=== PATIENT | male | born 1950 | race Caucasian/White ===

== ENCOUNTER 2021-06-02 08:25 | Outpatient (REF) | payer MEDICARE, SELFPAY ==
[2021-06-02 08:45] LABS: MANUAL DIFF FLAG NO
[2021-06-02 08:51] LABS: Basophils Percent Auto 0.5 % (0-2); Eosinophils Absolute Auto 0.1 X10*3/uL (0.0-0.4); Eosinophils Percent Auto 2.5 % (0-4); Hematocrit 47.1 % (42.0-52.0); Hemoglobin 15.3 g/dl (14.0-18.0); Imm Gran Abs Auto 0.01 X10*3/uL (0.00-0.03); Imm Gran Pct Auto 0.2 % (0.0-0.4); Lymphocytes Absolute Auto 1.7 X10*3/uL (1.2-4.9); Lymphocytes Percent Auto 41.6 % (20-40); Mean Corpuscular HGB Conc 32.5 g/dl (31.0-36.0); Mean Corpuscular Hemoglobin 29.6 pg (27.0-33.0); Mean Corpuscular Volume 91.1 fL (80.0-98.0); Mean Platelet Volume 10.1 fL (9.4-12.4); Monocytes Absolute Auto 0.3 X10*3/uL (0.1-1.2); Monocytes Percent Auto 8.1 % (2-11); Neutrophils Absolute Auto 1.9 x10*3/uL (2.0-8.3); Neutrophils Percent Auto 47.1 % (45-73); Platelet Count 199 X10*3/uL (160-400); Red Blood Count 5.17 X10*6/uL (4.60-5.80); White Blood Count 4.1 X10*3/uL (4.8-10.8)
[2021-06-02 09:19] LABS: Alanine Aminotransferase 24 U/L (0-40); Alkaline Phosphatase 85 U/L (39-117); Anion Gap 11 (12-20); Aspartate Amino Transferase 30 U/L (5-37); Bilirubin Total 0.4 mg/dL (0.0-1.0); Blood Urea Nitrogen 15 mg/dL (9-16); Calcium 9.2 mg/dL (8.4-10.2); Carbon Dioxide 26 mmol/L (22-29); Chloride 106 mmol/L (96-108); Cholesterol 219 mg/dL; Estimated Glomerular Filt Rate > 60; Glucose Fasting 103 mg/dL (60-99); HDL Cholesterol 57 mg/dL; LDL Cholesterol Calculated 149 mg/dl; Potassium 4.3 mmol/L (3.3-5.1); Sodium 139 mmol/L (135-145); Total Protein 6.1 g/dL (6.5-8.0); Triglycerides 69 mg/dL
[2021-06-02 09:33] LABS: Appearance Urine CLEAR; Color Urine YELLOW; Glucose Urine UA NEG (NEG); Leukocyte Esterase Urine NEG (NEG); Nitrite Urine NEG (NEG); Specific Gravity - Urine 1.015 (1.005-1.025); Urine Blood NEG (NEG); Urine Ketones NEG (NEG); Urine Protein NEG (NEG-TRACE)
[2021-06-02 09:41] LABS: Prostate Specific Antigen 2.27 ng/mL (<0.05-4.0); TSH reflex Free T4 1.59 uIU/mL (0.32-4.0); Vitamin D 25-OH Total 56.1 ng/mL (>30)
== END 2021-06-02 08:26 | disposition home or self-care (01) ==
LOC: HO.LAB 08:25
PROVIDERS: PCP Internal Medicine; Visit Provider Internal Medicine
DX: Z00.00 Encounter for general adult medical examination without abnormal findings (principal); Z12.5 Encounter for screening for malignant neoplasm of prostate; N40.0 Benign prostatic hyperplasia without lower urinary tract symptoms; E78.00 Pure hypercholesterolemia, unspecified; I10 Essential (primary) hypertension; E55.9 Vitamin D deficiency, unspecified
CPT/HCPCS: 36415; 80053; 80061; 81003; 82306; 84153; 84443; 85025

== ENCOUNTER 2022-01-01 10:26 | Outpatient (REF) | payer MEDICARE, SELFPAY ==
--- NOTE | ~2022-01-01 | XR_ITS ---
EXAMINATION: XR SHOULDER, RIGHT CLINICAL INFORMATION: Pain. COMPARISON: Radiographs dated 01/06/2015. TECHNIQUE: AP external rotation, Grashey, scapular Y, and axillary views of the right shoulder. FINDINGS: Bony alignment is normal. There is mild bony demineralization. The glenohumeral joint is intact. The acromioclavicular and coracoclavicular intervals are normal. There is mild osteoarthritic change of the acromioclavicular joint. No fracture or dislocation is seen. There is a loose body suspected in the anterior joint space, new from prior. No foreign body is seen. There is no right pneumothorax. XR/XR shoulder RT min 2V IMPRESSION: 1. No fracture or dislocation is seen. 2. There is mild osteoarthritic change of the right acromioclavicular joint. 3. A small loose body suspected in the anterior joint space.
[2022-01-01 10:57] LABS: MANUAL DIFF FLAG NO
[2022-01-01 11:28] LABS: Basophils Percent Auto 0.4 % (0-2); Eosinophils Absolute Auto 0.1 X10*3/uL (0.0-0.4); Eosinophils Percent Auto 1.5 % (0-4); Hematocrit 47.8 % (42.0-52.0); Hemoglobin 15.6 g/dl (14.0-18.0); Imm Gran Abs Auto 0.02 X10*3/uL (0.00-0.03); Imm Gran Pct Auto 0.4 % (0.0-0.4); Lymphocytes Absolute Auto 1.6 X10*3/uL (1.2-4.9); Lymphocytes Percent Auto 34.7 % (20-40); Mean Corpuscular HGB Conc 32.6 g/dl (31.0-36.0); Mean Corpuscular Hemoglobin 29.7 pg (27.0-33.0); Mean Platelet Volume 10.4 fL (9.4-12.4); Monocytes Absolute Auto 0.4 X10*3/uL (0.1-1.2); Monocytes Percent Auto 9.1 % (2-11); Neutrophils Absolute Auto 2.5 x10*3/uL (2.0-8.3); Neutrophils Percent Auto 53.9 % (45-73); Platelet Count 224 X10*3/uL (160-400); Red Blood Count 5.25 X10*6/uL (4.60-5.80); Red Cell Distribution Width 12.3 % (11.0-16.0); White Blood Count 4.7 X10*3/uL (4.8-10.8)
[2022-01-01 12:00] LABS: Alanine Aminotransferase 22 U/L (0-40); Albumin Level 4.4 g/dL (3.5-5.0); Alkaline Phosphatase 90 U/L (39-117); Anion Gap 13 (12-20); Aspartate Amino Transferase 24 U/L (5-37); Bilirubin Total 0.2 mg/dL (0.0-1.0); Blood Urea Nitrogen 27 mg/dL (9-16); Calcium 9.6 mg/dL (8.4-10.2); Carbon Dioxide 28 mmol/L (22-29); Chloride 104 mmol/L (96-108); Cholesterol 219 mg/dL; Estimated Glomerular Filt Rate > 60; Glucose Fasting 83 mg/dL (60-99); HDL Cholesterol 60 mg/dL; LDL Cholesterol Calculated 145 mg/dl; Potassium 4.5 mmol/L (3.3-5.1); Sodium 140 mmol/L (135-145); Total Protein 6.5 g/dL (6.5-8.0); Triglycerides 74 mg/dL
[2022-01-01 12:04] LABS: Appearance Urine Clear; Color Urine Yellow; Glucose Urine UA Negative (Negative); Leukocyte Esterase Urine Negative (Negative); Nitrite Urine Negative (Negative); Specific Gravity - Urine >= 1.030 (1.005-1.025); Urine Blood Negative (Negative); Urine Ketones Trace mg/dL (Negative); Urine Protein Trace mg/dL (Neg-Trace)
[2022-01-01 12:11] LABS: Prostate Specific Antigen 2.61 ng/mL (<0.05-4.0); TSH reflex Free T4 0.92 uIU/mL (0.32-4.0)
== END 2022-01-01 10:27 | disposition home or self-care (01) ==
LOC: HO.LAB 10:26
PROVIDERS: PCP Internal Medicine; Visit Provider Internal Medicine
DX: Z00.00 Encounter for general adult medical examination without abnormal findings (principal); Z12.5 Encounter for screening for malignant neoplasm of prostate; I10 Essential (primary) hypertension; E78.00 Pure hypercholesterolemia, unspecified; E55.9 Vitamin D deficiency, unspecified; N40.0 Benign prostatic hyperplasia without lower urinary tract symptoms; M25.511 Pain in right shoulder
CPT/HCPCS: 36415; 73030; 80053; 80061; 81003; 82306; 84153; 84443; 85025

== ENCOUNTER 2022-01-14 10:11 | Outpatient (REF) | payer MEDICARE, SELFPAY ==
--- NOTE | ~2022-01-14 | XR_ITS ---
EXAMINATION: XR KNEE, RIGHT XR KNEE, LEFT CLINICAL INFORMATION: Bilateral knee pain. COMPARISON: Standing AP knees and right knee 01/13/2018, left knee 07/31/2015. TECHNIQUE: Each knee is imaged in 3 views including AP projections with weightbearing. There are total of 6 views, 3 on each side. FINDINGS: Right: Normal bony mineralization. No fracture, dislocation, destructive process. There is small suprapatellar effusion. Hoffa's fat pad appears normal. There is no joint narrowing or erosive change or chondrocalcinosis. No lateralization or tilting patella. Left: Normal bony mineralization. No fracture, dislocation, or destructive process. There is borderline thickening suprapatellar bursa which may represent a trace amount of fluid. Hoffa's fat pad appears normal. Again, there is a corticated ossicle at the proximal anterior tibial tubercle. The deep infrapatellar recess is preserved. No joint narrowing or erosive change or chondrocalcinosis. No lateralization or tilting patella. XR/XR knee RT 3V IMPRESSION: Right: -Small suprapatellar effusion. -No joint narrowing, erosion, or chondrocalcinosis. Left: -Borderline thickening suprapatellar bursa, trace amount of fluid. -No joint narrowing, erosion, or chondrocalcinosis.
--- NOTE | ~2022-01-14 | XR_ITS ---
EXAMINATION: XR KNEE, RIGHT XR KNEE, LEFT CLINICAL INFORMATION: Bilateral knee pain. COMPARISON: Standing AP knees and right knee 01/13/2018, left knee 07/31/2015. TECHNIQUE: Each knee is imaged in 3 views including AP projections with weightbearing. There are total of 6 views, 3 on each side. FINDINGS: Right: Normal bony mineralization. No fracture, dislocation, destructive process. There is small suprapatellar effusion. Hoffa's fat pad appears normal. There is no joint narrowing or erosive change or chondrocalcinosis. No lateralization or tilting patella. Left: Normal bony mineralization. No fracture, dislocation, or destructive process. There is borderline thickening suprapatellar bursa which may represent a trace amount of fluid. Hoffa's fat pad appears normal. Again, there is a corticated ossicle at the proximal anterior tibial tubercle. The deep infrapatellar recess is preserved. No joint narrowing or erosive change or chondrocalcinosis. No lateralization or tilting patella. XR/XR knee LT 3V IMPRESSION: Right: -Small suprapatellar effusion. -No joint narrowing, erosion, or chondrocalcinosis. Left: -Borderline thickening suprapatellar bursa, trace amount of fluid. -No joint narrowing, erosion, or chondrocalcinosis.
== END 2022-01-14 10:12 | disposition home or self-care (01) ==
LOC: HO.XRAY 10:11
PROVIDERS: PCP Internal Medicine; Visit Provider Nurse Practitioner Family
DX: M25.561 Pain in right knee (principal); M25.562 Pain in left knee
CPT/HCPCS: 73562; 99202

== ENCOUNTER → 2022-02-02 09:43 | Outpatient (BNVA) | payer MEDICARE, SELFPAY | PROVIDERS: PCP Internal Medicine; Visit Provider Physician Assistant | DX: M75.101 Unspecified rotator cuff tear or rupture of right shoulder, not specified as traumatic (principal); M12.811 Other specific arthropathies, not elsewhere classified, right shoulder | CPT/HCPCS: 99202 ==

== ENCOUNTER 2022-02-24 07:56 | Outpatient (REF) | payer MEDICARE, SELFPAY ==
--- NOTE | ~2022-02-24 | MR_ITS ---
EXAMINATION: MR SHOULDER WITHOUT CONTRAST, RIGHT CLINICAL INFORMATION: Right shoulder pain COMPARISON: Radiographs 01/01/2022 TECHNIQUE: MRI of the shoulder without contrast was performed on a high-field scanner. FINDINGS: ROTATOR CUFF: The subscapularis tendon is completely torn and retracted. Supraspinatus tendinosis with ill-defined partial tearing posteriorly. The infraspinatus and teres minor tendons appear intact. Moderate-severe subscapularis and mild supraspinatus muscle atrophy. BICEPS: The biceps tendon is completely torn and retracted. CORACOACROMIAL ARCH: The undersurface of the acromion is curved with no subacromial spur. Moderate acromioclavicular osteoarthritis. LABRUM/CAPSULE: The posterior labrum is degenerated and attenuated, essentially absent at the superior aspect. The superior labrum is blunted. GLENOHUMERAL JOINT/MARROW: There is a 2.5 cm cyst with interspersed and peripheral fat at the lateral aspect of the humeral head which is likely chronic and degenerative. Small marginal osteophytes of the humeral head and neck junction and glenoid rim. Partial-thickness cartilage loss of the inferomedial humeral head. Small joint effusion with mild synovitis. MR/MR shoulder RT wo con IMPRESSION: 1. Completely torn and retracted subscapularis tendon with moderate-severe muscle atrophy. 2. Supraspinatus tendinosis with ill-defined partial tearing posteriorly. Mild supraspinatus muscle atrophy. 3. Completely torn and retracted biceps tendon. 4. Moderate acromioclavicular and glenohumeral osteoarthritis.
== END 2022-02-24 07:57 | disposition home or self-care (01) ==
LOC: HO.MRI 07:56
PROVIDERS: Visit Provider Physician Assistant
DX: M12.811 Other specific arthropathies, not elsewhere classified, right shoulder (principal); M75.101 Unspecified rotator cuff tear or rupture of right shoulder, not specified as traumatic
CPT/HCPCS: 73221

== ENCOUNTER → 2022-03-02 09:16 | Outpatient (BNVA) | payer MEDICARE, SELFPAY | PROVIDERS: PCP Internal Medicine; Visit Provider Physician Assistant | DX: M75.101 Unspecified rotator cuff tear or rupture of right shoulder, not specified as traumatic (principal); M12.811 Other specific arthropathies, not elsewhere classified, right shoulder | CPT/HCPCS: 99212 ==

== ENCOUNTER → 2022-03-11 12:10 | Outpatient (BNVA) | payer MEDICARE, SELFPAY | PROVIDERS: PCP Internal Medicine; Visit Provider Orthopaedic Surgery | DX: M75.101 Unspecified rotator cuff tear or rupture of right shoulder, not specified as traumatic (principal); M12.811 Other specific arthropathies, not elsewhere classified, right shoulder; M25.511 Pain in right shoulder | CPT/HCPCS: 20610; 99212; J1100 ==

== ENCOUNTER → 2022-06-04 09:48 | Outpatient (BNVA) | payer MEDICARE, SELFPAY | PROVIDERS: PCP Internal Medicine; Visit Provider Orthopaedic Surgery | DX: M75.101 Unspecified rotator cuff tear or rupture of right shoulder, not specified as traumatic (principal); M12.811 Other specific arthropathies, not elsewhere classified, right shoulder | CPT/HCPCS: 99212 ==

== ENCOUNTER 2022-06-16 09:00 | Outpatient (RCR) | payer MEDICARE, SELFPAY ==
--- NOTE | 2022-04-21 12:48 | MHC.PT.EP ---
[facility] [place] Office [place] Office [place] Office [address] Gordon Foley [address] [phone] F: [phone] F: [phone] F: [phone] F: [phone] Physical Therapy Plan of Care Date of Evaluation: Date of Surgery: Diagnosis: RTC tears (per MRI full tear subscapularis, partial tear supraspinatus, full tear biceps, mod ACJ OA) Assessment: Patient is a 71 y.o. male who is referred to PT by Dr. Aston Black MD with Dx of RTC tears. Per MRI results: full tear subscapularis, partial tear supraspinatus, full tear proximal biceps, mod ACJ OA. Patient impairments include pain, limited ROM, weakness. Patient's current functional limitations are reaching overhead, lifting anything with arm, unable to sleep on R side, outstretched arm, reaching behind to back pocket, comb hair, and brush teeth. Patient will benefit from skilled PT to address aforementioned impairments and functional limitations to meet established goals. Frequency and Duration: The patient will be seen 1-2x/week for 4 weeks Short Term Goals: 2 weeks Patient demonstrates consistency and independence with HEP to self manage symptoms. Patient presents with increased R shoulder AROM 120 degrees to reach to top of head to wash hair. Intermediate Goals: 4 weeks Patient presents with increased R shoulder AROM IR 50 degrees to reach into back pocket. Patient presents with increased R shoulder flexion 4-/5 to be able to hold/lift plate to cabinet. Treatment Plan: Modalities to reduce pain, spasms and effusion. Manual therapy to restore motion and function. Therapeutic exercise to improve strength and flexibility. Neuromuscular re-education for posture and balance. Therapeutic activities to return to functional activities of daily living. Electronically signed by: Keisha Cardenas, PT, DPT Please sign and return to therapist. Thank you for your referral.
--- NOTE | 2022-06-16 10:45 | MHC.PT.DC ---
[facility] [place] Office [place] Office [place] Office [address] Gordon Foley [address] [facility] [phone] F: [phone] F: [phone] F: [phone] F: [phone] Physical Therapy Discharge Report Diagnosis: RTC tears (per MRI full tear subscapularis, partial tear supraspinatus, full tear biceps, mod ACJ OA) Date of Surgery: Date of Evaluation: 04/21/22 Date of Discharge: 06/16/22 Treatments to Date: 8 Cancellations to Date: No Shows to Date: Discharge Status: Achieved Goals Independent with HEP Discharge Summary: He demonstrates significant improvement in pain reduction, improved AROM and shoulder strength which positively correlated to improved functional ability with ADLs. He is ready for discharge this date, a new HEP is given to him for [facility] symptom management. Electronically signed by: Keisha Cardenas PT, DPT Please sign and return to therapist. Thank you for your referral.
== END 2022-11-25 07:53 | disposition home or self-care (01) ==
LOC: HO.PT 09:00
PROVIDERS: PCP Internal Medicine; Visit Provider Orthopaedic Surgery
DX: M12.811 Other specific arthropathies, not elsewhere classified, right shoulder (principal); M75.101 Unspecified rotator cuff tear or rupture of right shoulder, not specified as traumatic
CPT/HCPCS: 97110; 97162

== ENCOUNTER 2022-08-02 15:56 | Outpatient (REF) | payer MEDICARE, SELFPAY ==
[2022-08-04 14:09] LABS: Lyme Blot 5.32 index
[2022-08-05 09:54] LABS: Lyme Abs Screen POSITIVE
[2022-08-06 15:14] LABS: 18 KD (IgG) Band REACTIVE; 23 KD (IgG) Band NON-REACTIVE; 23 KD (IgM) Band NON-REACTIVE; 28 KD (IgG) Band NON-REACTIVE; 30 KD (IgG) Band REACTIVE; 39 KD (IgM) Band NON-REACTIVE; 39KD (IgG) Band REACTIVE; 41 KD (IgM) Band NON-REACTIVE; 41KD (IgG) Band REACTIVE; 45 KD (IgG) Band REACTIVE; 58 KD (IgG) Band REACTIVE; 66 KD (IgG) Band NON-REACTIVE; 93 KD (IgG) Band REACTIVE; Lyme IgG Blot Interp POSITIVE (NEGATIVE); Lyme IgM Blot Interp NEGATIVE (NEGATIVE)
== END 2022-08-02 15:57 | disposition home or self-care (01) ==
LOC: HO.LAB 15:56
PROVIDERS: Nurse Practitioner Family; PCP Internal Medicine; Visit Provider Internal Medicine
DX: M25.461 Effusion, right knee (principal)
CPT/HCPCS: 36415; 86617; 86618

== ENCOUNTER 2022-08-03 08:40 | Outpatient (REF) | payer MEDICARE, SELFPAY ==
[2022-08-03 12:33] LABS: MN% 75.9 %; PMN% 24.1 %; WBC Synovial Fluid 0.437 X10*3/uL
[2022-08-03 12:35] LABS: RBC Synovial Fluid < 0.002 X10*6/uL
[2022-08-03 14:24] LABS: Lymphocytes Synovial Fluid 21 %; Neutrophils Synovial Fluid 14 %; Source Synovial Fluid RIGHT KNEE
[2022-08-03 14:25] LABS: BF Shift QC OK YES; Man Diluent Bkgrd OK YES; Monocytes Synovial Fluid 6 %; Other Cells Synovial Fluid 59
[2022-08-06 00:23] LABS: Lyme PCR Source NOT GIVEN; Lyme Synovial Fluid PCR NOT DETECTED (NOT DETECTED)
== END 2022-08-03 08:41 | disposition home or self-care (01) ==
LOC: HO.LAB 08:40
PROVIDERS: PCP Internal Medicine; Visit Provider Nurse Practitioner Family
DX: M25.461 Effusion, right knee (principal); M25.561 Pain in right knee
CPT/HCPCS: 20610; 36415; 87070; 87073; 87205; 87476; 89051; 89060; 99212

== ENCOUNTER 2022-12-16 08:43 | Outpatient (REF) | payer MEDICARE, SELFPAY ==
[2022-12-16 08:55] LABS: MANUAL DIFF FLAG NO
[2022-12-16 09:44] LABS: Basophils Percent Auto 0.4 % (0-2); Eosinophils Absolute Auto 0.1 X10*3/uL (0.0-0.4); Eosinophils Percent Auto 2.7 % (0-4); Hemoglobin 15.5 g/dl (14.0-18.0); Imm Gran Abs Auto 0.01 X10*3/uL (0.00-0.03); Imm Gran Pct Auto 0.2 % (0.0-0.4); Lymphocytes Absolute Auto 1.7 X10*3/uL (1.2-4.9); Lymphocytes Percent Auto 35.7 % (20-40); Mean Corpuscular Hemoglobin 29.6 pg (27.0-33.0); Mean Corpuscular Volume 89.9 fL (80.0-98.0); Mean Platelet Volume 10.3 fL (9.4-12.4); Monocytes Absolute Auto 0.4 X10*3/uL (0.1-1.2); Neutrophils Absolute Auto 2.5 x10*3/uL (2.0-8.3); Platelet Count 213 X10*3/uL (160-400); Red Blood Count 5.23 X10*6/uL (4.60-5.80); Red Cell Distribution Width 12.3 % (11.0-16.0); White Blood Count 4.7 X10*3/uL (4.8-10.8)
[2022-12-16 10:31] LABS: Alanine Aminotransferase 20 U/L (0-40); Albumin Level 4.1 g/dL (3.5-5.0); Alkaline Phosphatase 91 U/L (39-117); Anion Gap 11 (12-20); Aspartate Amino Transferase 23 U/L (5-37); Bilirubin Total 0.6 mg/dL (0.0-1.0); Blood Urea Nitrogen 21 mg/dL (9-16); Calcium 9.4 mg/dL (8.4-10.2); Carbon Dioxide 28 mmol/L (22-29); Chloride 107 mmol/L (96-108); Cholesterol 231 mg/dL (<200); Estimated Glomerular Filt Rate > 60; Glucose Fasting 98 mg/dL (60-99); HDL Cholesterol 59 mg/dL (>40); LDL Cholesterol Calculated 151 mg/dL (<100); Potassium 4.4 mmol/L (3.3-5.1); Sodium 142 mmol/L (135-145); Total Protein 6.4 g/dL (6.5-8.0); Triglycerides 106 mg/dL (<150)
[2022-12-16 10:41] LABS: Appearance Urine Clear; Color Urine Yellow; Glucose Urine UA Negative (Negative); Leukocyte Esterase Urine Negative (Negative); Nitrite Urine Negative (Negative); Urine Blood Negative (Negative); Urine Ketones Negative (Negative); Urine Protein Negative (Neg-Trace)
[2022-12-16 10:44] LABS: Prostate Specific Antigen 2.33 ng/mL (<0.05-4.0)
[2022-12-16 10:51] LABS: Vitamin D 25-OH Total 53.5 ng/mL (>30)
== END 2022-12-16 08:44 | disposition home or self-care (01) ==
LOC: HO.LAB 08:43
PROVIDERS: PCP Internal Medicine; Visit Provider Internal Medicine
DX: Z00.00 Encounter for general adult medical examination without abnormal findings (principal); Z12.5 Encounter for screening for malignant neoplasm of prostate; R30.0 Dysuria; N40.0 Benign prostatic hyperplasia without lower urinary tract symptoms; E78.00 Pure hypercholesterolemia, unspecified; E55.9 Vitamin D deficiency, unspecified
CPT/HCPCS: 36415; 80053; 80061; 81003; 82306; 84153; 84443; 85025

== ENCOUNTER 2023-01-04 08:38 | Outpatient (AMB) | payer MEDICARE, SELFPAY ==
[2023-01-04 08:44] VITALS: BP 142/78; PULSE 55; O2SAT 98; BMI 22.1
--- NOTE | 2023-01-04 08:44 | MHC.PC.OV ---
Vital Signs 01/04/23 08:44 Height 5 ft 10 in Weight 154 lb 4 oz BMI 22.1 BP 142/78 H Blood Pressure Location Lt brachial Position Sitting Pulse 55 Pulse Source Pulse Oximeter Pulse Oximetry (%) 98 Oxygen Delivery Method Room Air Intake Visit Reasons: Annual Exam [employer] Fis[employer] Technician Required: No Accompanied by: Self / Same As Patient Allergies No Known Allergies Allergy (Verified 01/04/23 09:40) Medication List - Last Reconciled 01/04/23 by Brian Tay MD albuterol sulfate 90 mcg/actuation 2 puffs PO Q6H PRN aspirin 81 mg PO DAILY finasteride 5 mg PO DAILY 90 days [id number] serr 1,500-400-100 mg-unit-mg (Osteo Bi-Flex (5-Loxin)) 1 tab PO DAILY meloxicam 15 mg PO DAILY zolpidem 10 mg PO BEDTIME PRN 90 days Tobacco use date assessed: 01/04/23 Fall risk assessment: No Falls in past year Last assessed Fall Risk: 01/04/23 Dental Screening Dental Screen Date: 01/04/23 Did you have a dental visit in the last 12 months?: Yes Did you have a dental problem in the last 6 months where you did not have access to dental care?: No Was dental information given to patient?: Patient has dentist HPI Annual Exam HPI Details Patient comes in today for his annual physical examination States that he feels okay He denies any headaches or dizziness Denies any chest pains, no SOB No nausea/vomiting, no abdominal pain No change in bowel habits noted Denies any acute urinary symptoms Still has on and off knee pains but states that these are mostly manageable Had his follow up labs done a few weeks ago - to discuss his results [facility] Medical History Insomnia Lyme arthritis of knee Elevated blood pressure reading Pure hypercholesterolemia Leukopenia Hypermobility arthralgia Benign prostatic hyperplasia without lower urinary tract symptoms Surgical History (Updated 01/04/23 @ 09:54 by Brian Tay MD) Hx of colonoscopy (~05/2013) Family History Mother No problems noted. Father No problems noted. Social History Housing: House Alcohol intake: current Alcohol intake frequency: a few times a week Patient Tobacco Use Status: Former Tobacco user Quit Date: 1984 e-Cigarette/Vaping Use: Never Used Second Hand Smoke Exposure: Yes service: No Current occupational status: retired Cognitive needs: No Hearing needs: No Vision needs: Yes Questionnaire PHQ-9 Over the last 2 weeks, how often have you been bothered by any of the following problems? 1. Little interest or pleasure in doing things: not at all 2. Feeling down, depressed, or hopeless: not at all 3. Trouble falling or staying asleep, or sleeping too much: not at all 4. Feeling tired or having little energy: not at all 5. Poor appetite or overeating: not at all 6. Feeling bad about yourself - or that you are a failure or have let yourself or your family down: not at all 7. Trouble concentrating on things, such as reading the newspaper or watching television: not at all 8. Moving or speaking so slowly that other people could have noticed. Or the opposite - being so fidgety or restless that you have been moving around a lot more than usual: not at all 9. Thoughts that you would be better off or of hurting yourself in some way: not at all Total score: 0 Depression Screening Interpretation: Negative [id number] - PHQ-9 Billing: Yes Source: Developed by Drs. Gurvinder Dubois, Yulia Rollins, Tate Garcia and colleagues, with an educational justino from [employer]. Thrive Questionnaire Date Thrive assessed: 01/04/23 I am a: Patient What is your living situation today?: I have a steady place to live Within the past 12 months, did the food you bought not last and you didn't have the money to get more?: Never true Within the past 12 months, did you worry whether your food would run out before you got money to buy more?: Never true Do you have trouble paying for medicines?: No Do you have trouble getting transportation to medical appointments?: No Do you have trouble paying your heating and electricity bill?: No Do you have trouble taking care of your child, family member or friend?: No Do you have trouble with day-to-day activities such as bathing, preparing meals, shopping, managing finances, etc.?: No Are you currently unemployed and looking for a job?: No Are you interested in more education?: No Please select the resources that you would like help with: None Currently or been in a relationship where the following occur: no concerns reported AUDIT C Alcohol Use Questionnaire (AUDIT-C) 1. How often do you have a drink containing alcohol?: Never 3. How often do you have six or more drinks on one occasion?: Never Total Score: 0 Score Reviewed/Action Taken: Yes EMILIANO-7 AMB Questionnaire EMILIANO-7 Date EMILIANO - 7 assessed: 01/04/23 Feeling nervous, anxious, or on edge: 0 = Not at all Not being able to stop or control worryin = Not at all Worrying too much about different things: 0 = Not at all Trouble relaxin = Not at all Being so restless that it is hard to sit still: 0 = Not at all Becoming easily annoyed or irritable: 0 = Not at all Feeling afraid as if something awful might happen: 0 = Not at all Total EMILIANO-7 score (0-4 normal; 5-9 mild; 10-14 moderate; 15-21 severe): 0 Source: Developed by Drs. Gurvinder Dubois, Yulia Rollins, Tate Garcia and colleagues, with an educational justino from [employer]. Review of Systems Const Denies chills, Reports difficulty sleeping (Zolpidem helps), Denies fatigue, Denies fever(s), Denies headache(s), Denies malaise and Denies weakness Eyes Denies blurry vision, Denies change in vision, Denies irritation and Denies itchy eyes ENT Denies dysphagia, Denies dizziness, Denies otalgia, Denies headache(s), Denies nasal congestion, Denies neck pain, Denies odynophagia and Denies sore throat Card Denies chest pain, Denies rapid heart rate, Denies irregular heart rhythm, Denies palpitations and Denies dyspnea Resp Denies chest congestion, Denies cough, Denies dyspnea and Denies wheezing GI Denies abdominal pain, Denies bloating, Denies constipation, Denies dysphagia, Denies heartburn, Denies diarrhea, Denies nausea, Denies odynophagia and Denies vomiting Denies hematuria, Denies difficulty urinating, Denies dysuria, Denies urinary frequency and Denies urinary urgency Musc Denies back pain, Reports arthralgias (on and off, in both knees), Denies joint swelling, Denies muscle weakness and Denies neck pain Skin/Breast Denies change in pigmentation, Denies lesions, Denies rash and Denies unusual bruising Neuro Denies dizziness, Denies headache(s), Denies paresthesias and Denies weakness Endo Denies fatigue and Denies palpitations Aller/Immun Denies itchy eyes and Denies wheezing Physical exam (Primary Care) Vital Signs: Last Vital Signs Pulse 55 01/04/23 08:44 BP 142/78 H 01/04/23 08:44 Pulse Ox 98 01/04/23 08:44 Oxygen Delivery Method Room Air 01/04/23 08:44 BMI result Body Mass Index 22.1 Tobacco/Smoking Status: Tobacco use Status Tobacco use date assessed 01/04/23 01/04/23 08:49 Patient Tobacco Use Status Former Tobacco user 01/04/23 08:49 e-Cigarette/Vaping Use Never Used 01/04/23 08:49 PHQ-9: PHQ-9 Score PHQ-9: Total score 0 01/04/23 09:51 Depression Screening Interpretation: Negative Thrive Assessment: Date of Thrive Assessment Date Thrive assessed 01/04/23 01/04/23 08:49 Currently or been in a relationship where the following occur: no concerns reported Const General: no acute distress, alert and awake Orientation/consciousness: patient oriented x3 HENMT Head: Yes normocephalic and Yes atraumatic Ears: external ears normal, TM's normal bilaterally and EAC's normal General nose exam: No nasal discharge present Face and sinus: Yes normal facial exam and Yes sinuses nontender Teeth and gingiva: dentition normal Throat: Yes posterior oropharynx normal and Yes tonsils normal (no TP congestion) Eyes Eyelids: Yes eyelids normal Conjunctivae: conjunctivae normal Pupils: Equal, round and reactive pupils present EOM: EOMs intact bilaterally Neck Neck: Yes no lymphadenopathy and Yes supple Thyroid: Thyroid normal Resp Auscultation: clear to auscultation bilaterally, no rales and no wheezes Cardio Rate: regular rate Rhythm: regular rhythm Heart sounds: no murmurs GI Palpation (GI): Soft to palpation, nontender and No hepatosplenomegaly present Auscultation: normal bowel sounds General: Yes no CVA tenderness Back/Spine/Pelvis Back: no CVA tenderness Thoracic/Lumbar Spine: thoracic and lumbar spine normal to inspection Skin Lesions: no lesions Rashes: no rashes Neuro General: patient oriented x3, moves all extremities, no focal motor deficits and CN's II-XI intact bilaterally Cranial nerves: Yes Equal, round and reactive pupils present Cognition (Neuro): normal cognition Gait exam (Neuro): Normal gait present Extrem General: Yes no clubbing, cyanosis or edema Right lower extremity: knee Details: tenderness and normal ROM; no swelling Left lower extremity: knee Details: tenderness and normal ROM; no swelling Office Procedures Flu Questionnaire Does the patient have a severe egg allergy?: No Immunizations flu vacc [id number] 6mos up(PF) 60 mcg(15 mcgx4)/0.5 mL IM syringe Performing Provider: Brian Tay MD [facility] Documented (not given) by: J Carlos Anne on 01/04/23 08:54 Reason Not Given: Patient Refused Results Reviewed Results Reviewed: Laboratory Tests 12/16/22 08:55 WBC 4.7 L Hgb 15.5 Hct 47.0 Plt Count 213 Sodium 142 Potassium 4.4 Creatinine 0.81 Estimated GFR > 60 Fasting Glucose 98 Calcium 9.4 AST 23 ALT 20 Cholesterol 231 H LDL Cholesterol, Calc 151 H HDL Cholesterol 59 Prostate Specific Ag 2.33 25-OH Vitamin D Total 53.5 TSH 1.60 Ur Specific [place] 1.020 Urine Protein Negative Urine Glucose (UA) Negative Urine Blood Negative Assessment and Plan Assessment & Plan (1) Annual physical exam: Code(s): Z00.00 - Encounter for general adult medical examination without abnormal findings Plan: Results of his labs done a few weeks ago reviewed and discussed with patient (2) Pure hypercholesterolemia: Code(s): E78.00 - Pure hypercholesterolemia, unspecified Plan: Reinforced low cholesterol diet Patient is cautioned that his total and LDL cholesterol have both increased from previous; LDL cholesterol is now at 151 mg/dl Patient continues to decline pharmacotherapy and would like to continue with diet modification alone for now Will recheck his fasting lipids in 6 months for follow up (3) Elevated blood pressure reading: Code(s): R03.0 - Elevated blood-pressure reading, without diagnosis of hypertension Plan: Reinforced low sodium diet He is instructed to continue monitoring his blood pressure regularly (4) Rotator cuff tear arthropathy of right shoulder: Code(s): M75.101 - Unspecified rotator cuff tear or rupture of right shoulder, not specified as traumatic; M12.811 - Other specific arthropathies, not elsewhere classified, right shoulder Plan: Right shoulder MRI done in February 2022 revealed (+) completely torn and retracted subscapularis tendon with moderate to severe muscle atrophy; supraspinatus tendinosis with ill-defined partial tearing posteriorly; mild supraspinatus muscle atrophy; completely torn and retracted biceps tendon and moderate acromioclavicular and glenohumeral osteoarthritis He has been advised by orthopedics to try conservative therapy first States that his right shoulder pain and ROM have improved significantly with physical therapy and he continues to do the shoulder exercises and stretching that he was taught by physical therapy regularly Is happy that he did not have to undergo surgical intervention for his shoulder Follow up with orthopedics as scheduled (5) Lyme arthritis of knee: Comment: treated in 1994 no symptoms since 2014 Code(s): A69.23 - Arthritis due to Lyme disease Plan: Patient was treated for Lyme disease in 1994 X-rays of both knees done back in January 2022 came out normal Takes Ibuprofen PRN with good relief States that he has also been taking some OTC Turmeric and Osteo-flex and feels that they are helping and that he has been able to continue running on a regular basis, which he is passionate about (6) Hypermobility arthralgia: Code(s): M25.50 - Pain in unspecified joint Plan: Continue Meloxicam 15 mg QD PRN Follow up with rheumatology as scheduled (7) Leukopenia: Code(s): D72.819 - Decreased white blood cell count, unspecified Qualifiers: Leukopenia type: unspecified Qualified Code(s): D72.819 - Decreased white blood cell count, unspecified Plan: Likely has benign leukopenia as his WBC cell lines are all within normal percentage/distribution Will recheck his CBC in 6 months for follow up (8) Benign prostatic hyperplasia without lower urinary tract symptoms: Code(s): N40.0 - Benign prostatic hyperplasia without lower urinary tract symptoms Plan: Continue Finasteride 5 mg QD Follow up with urology as scheduled (9) Insomnia: Code(s): G47.00 - Insomnia, unspecified Qualifiers: Insomnia type: unspecified Qualified Code(s): G47.00 - Insomnia, unspecified Plan: Sleep hygiene reinforced Continue Zolpidem 10 mg Q HS PRN Plan Follow up in 6 months Orders: Orders Influenza [id number] Immunization 01/04/23 Z23 - Encounter for immunization Comprehensive [place]. Panel Fast 6 Months E78.00 - Pure hypercholesterolemia, unspecified Lipid Panel 6 Months E78.00 - Pure hypercholesterolemia, unspecified Complete Blood Count Auto Diff 6 Months I10 - Essential (primary) hypertension Coding Level of Care Code Est Pt Prev Care >65y(39815) Diagnoses Annual physical exam Z00.00 Pure hypercholesterolemia E78.00 Elevated blood pressure reading R03.0 Rotator cuff tear arthropathy of right shoulder M75.101; M12.811 Lyme arthritis of knee A69.23 Hypermobility arthralgia M25.50 Leukopenia, unspecified type D72.819 Leukopenia type: unspecified Benign prostatic hyperplasia without lower urinary tract symptoms N40.0 Insomnia, unspecified type G47.00 Insomnia type: unspecified
== END 2023-01-04 10:07 | disposition home or self-care (01) ==
PROVIDERS: Visit Provider Internal Medicine
DX: Z00.00 Encounter for general adult medical examination without abnormal findings (principal); E78.00 Pure hypercholesterolemia, unspecified; R03.0 Elevated blood-pressure reading, without diagnosis of hypertension; A69.23 Arthritis due to Lyme disease; M75.101 Unspecified rotator cuff tear or rupture of right shoulder, not specified as traumatic; M12.811 Other specific arthropathies, not elsewhere classified, right shoulder; M25.50 Pain in unspecified joint; D72.819 Decreased white blood cell count, unspecified; N40.0 Benign prostatic hyperplasia without lower urinary tract symptoms; G47.00 Insomnia, unspecified
CPT/HCPCS: 99397

== ENCOUNTER 2023-06-30 08:46 | Outpatient (REF) | payer MEDICARE, SELFPAY ==
[2023-06-30 08:55] LABS: MANUAL DIFF FLAG NO
[2023-06-30 09:12] LABS: Basophils Percent Auto 0.6 % (0-2); Eosinophils Absolute Auto 0.2 X10*3/uL (0.0-0.4); Eosinophils Percent Auto 3.5 % (0-4); Hematocrit 46.6 % (42.0-52.0); Hemoglobin 15.5 g/dl (14.0-18.0); Imm Gran Abs Auto 0.01 X10*3/uL (0.00-0.03); Imm Gran Pct Auto 0.2 % (0.0-0.4); Lymphocytes Absolute Auto 1.9 X10*3/uL (1.2-4.9); Lymphocytes Percent Auto 36.3 % (20-40); Mean Corpuscular HGB Conc 33.3 g/dl (31.0-36.0); Mean Corpuscular Hemoglobin 29.7 pg (27.0-33.0); Mean Corpuscular Volume 89.3 fL (80.0-98.0); Mean Platelet Volume 10.3 fL (9.4-12.4); Monocytes Absolute Auto 0.5 X10*3/uL (0.1-1.2); Monocytes Percent Auto 8.8 % (2-11); Neutrophils Absolute Auto 2.6 x10*3/uL (2.0-8.3); Neutrophils Percent Auto 50.6 % (45-73); Platelet Count 214 X10*3/uL (160-400); Red Blood Count 5.22 X10*6/uL (4.60-5.80); White Blood Count 5.1 X10*3/uL (4.8-10.8)
[2023-06-30 09:57] LABS: Alanine Aminotransferase 21 U/L (0-40); Alkaline Phosphatase 96 U/L (39-117); Anion Gap 10 (12-20); Aspartate Amino Transferase 21 U/L (5-37); Bilirubin Total 0.5 mg/dL (0.0-1.0); Blood Urea Nitrogen 24 mg/dL (9-16); Calcium 9.6 mg/dL (8.4-10.2); Carbon Dioxide 29 mmol/L (22-29); Chloride 107 mmol/L (96-108); Cholesterol 198 mg/dL (<200); Estimated Glomerular Filt Rate > 60; Glucose Fasting 95 mg/dL (60-99); HDL Cholesterol 54 mg/dL (>40); LDL Cholesterol Calculated 127 mg/dL (<100); Potassium 4.6 mmol/L (3.3-5.1); Sodium 141 mmol/L (135-145); Total Protein 6.3 g/dL (6.5-8.0); Triglycerides 88 mg/dL (<150)
== END 2023-06-30 08:47 | disposition home or self-care (01) ==
LOC: HO.LAB 08:46
PROVIDERS: PCP Internal Medicine; Visit Provider Internal Medicine
DX: I10 Essential (primary) hypertension (principal); E78.00 Pure hypercholesterolemia, unspecified
CPT/HCPCS: 36415; 80053; 80061; 85025

== ENCOUNTER 2023-07-06 09:37 | Outpatient (AMB) | payer MEDICARE, SELFPAY ==
--- NOTE | 2023-07-06 09:39 | MHC.PC.OV ---
Vital Signs 07/06/23 09:41 Height 5 ft 10 in Weight 152 lb 8 oz BMI 21.9 BP 130/66 Blood Pressure Location Lt brachial Position Sitting Pulse 67 Pulse Source Pulse Oximeter Pulse Oximetry (%) 98 Oxygen Delivery Method Room Air Intake Visit Reasons: 6mth f/u Intake Note: Patient is here to follow up on BPH, Hypercholesterolemia. New Accounts Representative Required: No Shopper'S Aide: Not Required per policy Accompanied by: Self / Same As Patient Allergies No Known Allergies Allergy (Verified 07/06/23 10:10) Medication List - Last Reconciled 07/06/23 by Brian Tay MD albuterol sulfate 90 mcg/actuation 2 puffs PO Q6H PRN aspirin 81 mg PO DAILY finasteride 5 mg PO DAILY 90 days [id number] serr 1,500-400-100 mg-unit-mg (Osteo Bi-Flex (5-Loxin)) 1 tab PO DAILY meloxicam 15 mg PO DAILY zolpidem 10 mg PO BEDTIME PRN 90 days Tobacco use date assessed: 07/06/23 Fall risk assessment: No Falls in past year Last assessed Fall Risk: 07/06/23 Dental Screening Dental Screen Date: 07/06/23 Did you have a dental visit in the last 12 months?: Yes Did you have a dental problem in the last 6 months where you did not have access to dental care?: No Was dental information given to patient?: Patient has dentist HPI 6mth f/u HPI Details Patient comes in today for his follow up visit States that he feels okay He denies any headaches or dizziness Denies any chest pains, no SOB No nausea/vomiting, no abdominal pain No change in bowel habits noted Still has on and off knee pains but states that these are mostly manageable - states that he still runs some local half-marathons when he can Takes Meloxicam as needed for knee pain and states that they have been helping a lot Had his follow up labs done last week - to discuss his results [facility] Medical History Insomnia Lyme arthritis of knee Elevated blood pressure reading Pure hypercholesterolemia Leukopenia Hypermobility arthralgia Benign prostatic hyperplasia without lower urinary tract symptoms Surgical History Hx of colonoscopy (~05/2013) Family History Mother No problems noted. Father No problems noted. Social History Housing: House Alcohol intake: current Alcohol intake frequency: a few times a week Patient Tobacco Use Status: Former Tobacco user Quit Date: 1984 e-Cigarette/Vaping Use: Never Used Second Hand Smoke Exposure: Yes service: No Current occupational status: retired Cognitive needs: No Hearing needs: No Vision needs: Yes Questionnaire PHQ-9 Over the last 2 weeks, how often have you been bothered by any of the following problems? 1. Little interest or pleasure in doing things: not at all 2. Feeling down, depressed, or hopeless: not at all 3. Trouble falling or staying asleep, or sleeping too much: not at all 4. Feeling tired or having little energy: not at all 5. Poor appetite or overeating: not at all 6. Feeling bad about yourself - or that you are a failure or have let yourself or your family down: not at all 7. Trouble concentrating on things, such as reading the newspaper or watching television: not at all 8. Moving or speaking so slowly that other people could have noticed. Or the opposite - being so fidgety or restless that you have been moving around a lot more than usual: not at all 9. Thoughts that you would be better off or of hurting yourself in some way: not at all Total score: 0 Depression Screening Interpretation: Negative Depression Screening Done: Yes 41222 - PHQ-9 Billing: Yes Source: Developed by Drs. Gurvinder Dubois, Yulia Rollins, Tate Garcia and colleagues, with an educational justino from [employer]. Thrive Questionnaire Date Thrive assessed: 07/06/23 I am a: Patient What is your living situation today?: I have a steady place to live Within the past 12 months, did the food you bought not last and you didn't have the money to get more?: Never true Within the past 12 months, did you worry whether your food would run out before you got money to buy more?: Never true Do you have trouble paying for medicines?: No Do you have trouble getting transportation to medical appointments?: No Do you have trouble paying your heating and electricity bill?: No Do you have trouble taking care of your child, family member or friend?: No Do you have trouble with day-to-day activities such as bathing, preparing meals, shopping, managing finances, etc.?: No Are you currently unemployed and looking for a job?: No Are you interested in more education?: No Currently or been in a relationship where the following occur: no concerns reported THRIVE Score: 0 AUDIT C Alcohol Use Questionnaire (AUDIT-C) 1. How often do you have a drink containing alcohol?: Monthly or less 2. How many drinks containing alcohol do you have on a typical day when you are drinking?: 1 or 2 3. How often do you have six or more drinks on one occasion?: Never Total Score: 1 Score Reviewed/Action Taken: Yes EMILIANO-7 AMB Questionnaire EMILIANO-7 Date EMILIANO - 7 assessed: 07/06/23 Feeling nervous, anxious, or on edge: 0 = Not at all Not being able to stop or control worryin = Not at all Worrying too much about different things: 0 = Not at all Trouble relaxin = Not at all Being so restless that it is hard to sit still: 0 = Not at all Becoming easily annoyed or irritable: 0 = Not at all Feeling afraid as if something awful might happen: 0 = Not at all Total EMILIANO-7 score (0-4 normal; 5-9 mild; 10-14 moderate; 15-21 severe): 0 Source: Developed by Drs. Gurvinder Dubois, Yulia Rollins, Tate Garcia and colleagues, with an educational justino from [employer]. Review of Systems Const Denies chills, Denies fatigue, Denies fever(s) and Denies headache(s) ENT Denies dysphagia, Denies dizziness, Denies otalgia, Denies headache(s), Denies neck pain, Denies odynophagia and Denies sore throat Card Denies chest pain, Denies palpitations and Denies dyspnea Resp Denies cough, Denies dyspnea and Denies wheezing GI Denies abdominal pain, Denies constipation, Denies dysphagia, Denies heartburn, Denies diarrhea, Denies nausea, Denies odynophagia and Denies vomiting Denies dysuria, Denies nocturia and Denies urinary frequency Musc Denies back pain, Reports arthralgias (right shoulder (chronic); on and off over both knees) and Denies neck pain Skin/Breast Denies rash Neuro Denies dizziness and Denies headache(s) Endo Denies fatigue and Denies palpitations Aller/Immun Denies wheezing Physical exam (Primary Care) Vital Signs: Last Vital Signs Pulse 67 07/06/23 09:41 BP 130/66 07/06/23 09:41 Pulse Ox 98 07/06/23 09:41 Oxygen Delivery Method Room Air 07/06/23 09:41 BMI result Body Mass Index 21.9 Tobacco/Smoking Status: Tobacco use Status Tobacco use date assessed 07/06/23 07/06/23 09:45 Patient Tobacco Use Status Former Tobacco user 07/06/23 09:45 e-Cigarette/Vaping Use Never Used 07/06/23 09:45 PHQ-9: PHQ-9 Score PHQ-9: Total score 0 07/06/23 09:45 Depression Screening Interpretation: Negative Thrive Assessment: Date of Thrive Assessment Date Thrive assessed 07/06/23 07/06/23 09:45 Currently or been in a relationship where the following occur: no concerns reported Const General: no acute distress and alert HENMT Ears: TM's normal bilaterally and EAC's normal Throat: Yes posterior oropharynx normal and Yes tonsils normal (no TP congestion) Neck Neck: Yes no lymphadenopathy and Yes supple Thyroid: Thyroid normal Resp Auscultation: clear to auscultation bilaterally, no rales and no wheezes Cardio Rate: regular rate Rhythm: regular rhythm Heart sounds: no murmurs GI Palpation (GI): Soft to palpation and nontender Auscultation: normal bowel sounds Extrem General: Yes no clubbing, cyanosis or edema Right upper extremity: shoulder/upper arm Details: tenderness Location: of the A-C joint; no swelling Right lower extremity: knee Details: tenderness; no swelling Left lower extremity: knee Details: tenderness; no swelling Results Reviewed Results Reviewed: Laboratory Tests 06/30/23 08:54 WBC 5.1 Hgb 15.5 Hct 46.6 Plt Count 214 Sodium 141 Potassium 4.6 Creatinine 0.75 Estimated GFR > 60 Fasting Glucose 95 Calcium 9.6 AST 21 ALT 21 Triglycerides 88 Cholesterol 198 LDL Cholesterol, Calc 127 H HDL Cholesterol 54 Assessment and Plan Assessment & Plan (1) Pure hypercholesterolemia: Code(s): E78.00 - Pure hypercholesterolemia, unspecified Plan: Results of his labs done last week reviewed and discussed with patient Reinforced low cholesterol diet Advised that his total and LDL cholesterol have both improved significantly from previous Patient continues to decline pharmacotherapy and prefers tocontinue with diet modification alone Will recheck his fasting lipids and labs in 6 months for follow up (2) Elevated blood pressure reading: Code(s): R03.0 - Elevated blood-pressure reading, without diagnosis of hypertension Plan: Reinforced low sodium diet His blood pressure appears controlled today and he is reminded to continue monitoring his blood pressure regularly (3) Rotator cuff tear arthropathy of right shoulder: Code(s): M75.101 - Unspecified rotator cuff tear or rupture of right shoulder, not specified as traumatic; M12.811 - Other specific arthropathies, not elsewhere classified, right shoulder Plan: Right shoulder MRI done in February 2022 revealed (+) completely torn and retracted subscapularis tendon with moderate to severe muscle atrophy; supraspinatus tendinosis with ill-defined partial tearing posteriorly; mild supraspinatus muscle atrophy; completely torn and retracted biceps tendon and moderate acromioclavicular and glenohumeral osteoarthritis He has been advised by orthopedics to try conservative therapy for now States that his right shoulder pain and ROM have improved significantly with physical therapy and he continues to do the shoulder exercises and stretching that he was taught by physical therapy regularly He is happy that he did not have to undergo surgical intervention for his shoulder - to continue following up with orthopedics as scheduled (4) Lyme arthritis of knee: Comment: treated in 1994 no symptoms since 2014 Code(s): A69.23 - Arthritis due to Lyme disease Plan: Patient was treated for Lyme disease in 1994 X-rays of both knees done back in January 2022 came out normal Takes Meloxicam PRN with good relief States that he has also been taking some OTC Turmeric and Osteo-flex and feels that they are helping and that he has been able to continue running on a regular basis, which he is passionate about (5) Hypermobility arthralgia: Code(s): M25.50 - Pain in unspecified joint Plan: Continue Meloxicam 15 mg QD PRN Follow up with rheumatology as scheduled (6) Leukopenia: Code(s): D72.819 - Decreased white blood cell count, unspecified Qualifiers: Leukopenia type: unspecified Qualified Code(s): D72.819 - Decreased white blood cell count, unspecified Plan: Likely has benign leukopenia as his WBC cell lines are all within normal percentage/distribution - WBC was normal on his recent labs Will recheck his CBC in 6 months for follow up (7) Benign prostatic hyperplasia without lower urinary tract symptoms: Code(s): N40.0 - Benign prostatic hyperplasia without lower urinary tract symptoms Plan: Continue Finasteride 5 mg QD Follow up with urology as scheduled (8) Insomnia: Code(s): G47.00 - Insomnia, unspecified Qualifiers: Insomnia type: unspecified Qualified Code(s): G47.00 - Insomnia, unspecified Plan: Sleep hygiene reinforced Continue Zolpidem 10 mg Q HS PRN Plan To return in 6 months for his annual physical examination Orders: Orders Complete Blood Count Auto Diff 6 Months D64.9 - Anemia, unspecified, Z00.00 - Encounter for general adult medical examination without abnormal findings Lipid Panel 6 Months E78.00 - Pure hypercholesterolemia, unspecified, Z00.00 - Encounter for general adult medical examination without abnormal findings TSH reflex Free T4 6 Months E78.00 - Pure hypercholesterolemia, unspecified, Z00.00 - Encounter for general adult medical examination without abnormal findings UA CC w/rflx Micro + Cult 6 Months R30.0 - Dysuria, Z00.00 - Encounter for general adult medical examination without abnormal findings Prostate Specific Antigen 6 Months N40.0 - Benign prostatic hyperplasia without lower urinary tract symptoms, Z00.00 - Encounter for general adult medical examination without abnormal findings Comprehensive [place]. Panel Fast 6 Months E78.00 - Pure hypercholesterolemia, unspecified, Z00.00 - Encounter for general adult medical examination without abnormal findings Vitamin D 25-OH Total 6 Months E55.9 - Vitamin D deficiency, unspecified, Z00.00 - Encounter for general adult medical examination without abnormal findings Coding Level of Care Code Est Pt Level 4 (52482) Diagnoses Pure hypercholesterolemia E78.00 Elevated blood pressure reading R03.0 Rotator cuff tear arthropathy of right shoulder M75.101; M12.811 Lyme arthritis of knee A69.23 Hypermobility arthralgia M25.50 Leukopenia, unspecified type D72.819 Leukopenia type: unspecified Benign prostatic hyperplasia without lower urinary tract symptoms N40.0 Insomnia, unspecified type G47.00 Insomnia type: unspecified
[2023-07-06 09:41] VITALS: BP 130/66; PULSE 67; O2SAT 98; BMI 21.9
== END 2023-07-06 10:31 | disposition home or self-care (01) ==
PROVIDERS: PCP Internal Medicine; Visit Provider Internal Medicine
DX: E78.00 Pure hypercholesterolemia, unspecified (principal); A69.23 Arthritis due to Lyme disease; R03.0 Elevated blood-pressure reading, without diagnosis of hypertension; M75.101 Unspecified rotator cuff tear or rupture of right shoulder, not specified as traumatic; M12.811 Other specific arthropathies, not elsewhere classified, right shoulder; M25.50 Pain in unspecified joint; D72.819 Decreased white blood cell count, unspecified; N40.0 Benign prostatic hyperplasia without lower urinary tract symptoms; G47.00 Insomnia, unspecified
CPT/HCPCS: 99214

== ENCOUNTER 2023-11-17 21:10 | Emergency (ER) | payer MEDICARE, SELFPAY ==
--- NOTE | ~2023-11-17 | CT_ITS ---
EXAMINATION: CT HEAD WITHOUT CONTRAST CLINICAL INFORMATION: Fall. COMPARISON: None available. TECHNIQUE: Contiguous axial imaging was performed from the skull base to vertex without intravenous administration of contrast. This CT examination was performed using dose optimization techniques as appropriate, variously including the following: *Automated exposure control *Adjustment of mA and/or kV according to patient size (this includes techniques or standardized protocols for targeted exams where dose is matched to indication/reason for exam; i.e. extremities or head) *Use of iterative reconstruction technique DLP: 709 mGy-cm FINDINGS: There is no acute intracranial hemorrhage. There is no evidence of acute/subacute cerebral or cerebellar infarction. There is no mass effect or midline shift. There is no extra-axial fluid collection. The ventricles are normal in size. The orbits are symmetric and within normal limits. The calvarium is intact. Mastoid air cells are clear. The visualized paranasal sinuses are well-aerated. The nasal septum is deviated towards the right. There is a rightward projecting nasal spur. CT/CT head/brain wo IV con IMPRESSION: No acute intracranial pathology.
--- NOTE | 2023-11-17 21:13 | ED.GENADULT ---
HPI - General Adult General Chief complaint: Fall Stated complaint: syncopal episode after bowel movement & vomiting Time Seen by Provider: 11/17/23 21:13 Source: patient Mode of arrival: ambulatory Limitations: no limitations History of Present Illness ED Provider: elayne PRINGLE narrative: Patient scheduled for colonoscopy today getting the colonoscopy preparation having diarrhea and nausea vomiting feeling weak while going to bathroom patient passed out history of vasovagal syncope in the past no chest pain no palpitation no significant head injury no seizure Related Data Previous Rx's ?Medication ?Instructions ?Recorded zolpidem 10 mg tablet 10 mg PO BEDTIME PRN insomnia 90 05/18/23 days #90 tabs finasteride 5 mg tablet 5 mg PO DAILY 90 days #90 tabs 08/26/23 meloxicam 15 mg tablet 15 mg PO DAILY #30 tabs 08/26/23 Allergies Allergy/AdvReac Type Severity Reaction Status Date / Time No Known Allergies Allergy Verified 11/17/23 21:24 Review of Systems Review of Systems: Yes all other systems are reviewed and are negative PMFSH Past Medical History Medical History Osteoarthritis Insomnia Lyme arthritis of knee Pure hypercholesterolemia Leukopenia Hypermobility arthralgia Benign prostatic hyperplasia without lower urinary tract symptoms Surgical History History of hernia surgery Hx of colonoscopy (~05/2013) Family History Family History Mother No problems noted. Father No problems noted. Social History Social History Household Members: Spouse Housing: House Alcohol intake: current Alcohol intake frequency: a few times a week Alcohol type: beer Patient Tobacco Use Status: Former Tobacco user Smoked in Last 30 Days: No e-Cigarette/Vaping Use: Never Used Second Hand Smoke Exposure: Yes Use of substances other than those prescribed or required for medical reasons: No Advance Directives: No Advance Directives Information Provided: No Do you have a plan to hurt others: No Plan service: No Current occupational status: retired Cognitive needs: No Hearing needs: No Vision needs: Yes Physical Exam ED Vital Signs: Vital Signs - 24 hr 11/17/23 21:15 11/17/23 21:38 11/17/23 21:38 Temperature 97.8 F Pulse Rate 54 55 59 Respiratory Rate 18 Blood Pressure 146/87 H 146/87 H 139/90 H Pulse Oximetry 98 Oxygen Delivery Method Room Air 11/17/23 21:38 11/17/23 21:39 11/17/23 23:30 Temperature 97.8 F 97.9 F Pulse Rate 63 59 46 L Respiratory Rate 18 16 Blood Pressure 135/87 139/90 H 130/68 Pulse Oximetry 100 98 Oxygen Delivery Method Room Air Room Air BMI result Body Mass Index 22.8 Appearance: Alert. Oriented X3. No acute distress. Orthostatic vitals normal Eyes: PERRLA, No Nystagmus ENT: Pharynx normal. Oral Mucosa moist Neck: Normal inspection. Neck supple. CVS: Normal heart rate and rhythm. Pulses normal. Respiratory: No respiratory distress. Equal air entry bilateral, no wheezing/rales/rhonchi Abdomen: Soft and nontender. Bowel sounds are present, no mass palpable, no CVA tenderness Skin: Skin warm and dry. Normal skin color. Normal skin turgor. Extremities: No lower extremity edema. No calf tenderness Neuro: Oriented X 3. No motor deficit. No sensory deficit.No cerebellar signs , cranial nerves II-XII intact Medications Administered Generic Name Dose Route Start Last Admin Trade Name Freq PRN Reason Stop Dose Admin Sodium Chloride 1,000 mls @ 999 mls/hr 11/18/23 01:07 11/18/23 01:10 Ns IV 11/18/23 02:07 999 mls/hr .Q1H1M ONE Administration Discontinued Medications Generic Name Dose Route Start Last Admin Trade Name Freq PRN Reason Stop Dose Admin Sodium Chloride 1,000 mls @ 999 mls/hr 11/17/23 21:15 11/17/23 21:41 Ns IV 11/17/23 22:15 999 mls/hr .Q1H1M ONE Administration Ondansetron HCl 4 mg 11/17/23 21:15 11/17/23 21:41 Ondansetron Hcl 4 Mg/2 Ml Vial IVPUSH 11/17/23 21:16 4 mg ONCE ONE Administration Medical Decision Making Medical Decision Making MDM Narrative: Patient with vasovagal syncope history of same in the past CT scan of the head is negative for acute labs are stable patient received 2 L of IV fluids feeling much better will discharge patient home Differential Diagnosis Differential Diagnoses: The differential diagnosis associated with the presentation includes Vasovagal syncope/hypovolemia/metabolic abnormality Lab Data MDM Lab Attestation statement: I reviewed the patient's lab results. 11/17/23 21:35 11/17/23 21:35 Labs: Lab Results 11/17/23 Range/Units 21:35 WBC 9.9 (4.8-10.8) X10*3/uL RBC 5.49 (4.60-5.80) X10*6/uL Hgb 16.6 (14.0-18.0) g/dl Hct 48.3 (42.0-52.0) % MCV 88.0 (80.0-98.0) fL MCH 30.2 (27.0-33.0) pg MCHC 34.4 (31.0-36.0) g/dl RDW 12.1 (11.0-16.0) % Plt Count 219 (160-400) X10*3/uL MPV 10.1 (9.4-12.4) fL Immature Gran % (Auto) 0.6 H (0.0-0.4) % Neut % (Auto) 78.3 H (45-73) % Lymph % (Auto) 14.5 L (20-40) % [place] % (Auto) 5.7 (2-11) % Eos % (Auto) 0.6 (0-4) % Baso % (Auto) 0.3 (0-2) % Lymph # (Auto) 1.4 (1.2-4.9) X10*3/uL [place] # (Auto) 0.6 (0.1-1.2) X10*3/uL Eos # (Auto) 0.1 (0.0-0.4) X10*3/uL Baso # (Auto) 0.0 (0.0-0.2) X10*3/uL Abs Immat Gran (auto) 0.06 H (0.00-0.03) X10*3/uL Absolute Neuts (auto) 7.7 (2.0-8.3) x10*3/uL Absolute Nucleated RBC 0.000 (0.0-0.012) X10*3/uL Nucleated RBC % (auto) 0.0 (0.0-0.2) /100WBC Sodium 141 (135-145) mmol/L Potassium 3.8 (3.3-5.1) mmol/L Chloride 106 (96-108) mmol/L Carbon Dioxide 24 (22-29) mmol/L Anion Gap 15 (12-20) BUN 15 (9-16) mg/dL Creatinine 1.04 (0.5-1.4) mg/dL Estim Creat Clear Calc 64.6 Estimated GFR > 60 Random Glucose 142 H (60-115) mg/dL Calcium 10.2 D (8.4-10.2) mg/dL Magnesium 2.3 (1.6-2.6) mg/dL Total Bilirubin 0.9 (0.0-1.0) mg/dL AST 31 (5-37) U/L ALT 27 (0-40) U/L Alkaline Phosphatase 99 (39-117) U/L Troponin I High Sens 14.2 (<3.5-35.0) ng/L Total Protein 7.2 (6.5-8.0) g/dL Albumin 4.6 (3.5-5.0) g/dL Discharge Plan Discharge Clinical Impression: Vasovagal syncope, Nausea vomiting and diarrhea Patient Disposition: Home, Self-Care Instructions: Syncope (ED), Acute Nausea and Vomiting (ED), Acute Diarrhea (ED) Additional Instructions: Drink plenty of fluids Follow up with your patient care nursing assistant Prescriptions: No Action zolpidem 10 mg tablet 10 mg PO BEDTIME PRN (Reason: insomnia) 90 Days Qty: 90 1RF meloxicam 15 mg tablet 15 mg PO DAILY Qty: 30 3RF finasteride 5 mg tablet 5 mg PO DAILY 90 Days Qty: 90 3RF Rx Instructions: 1 tablet Orally Once a day Print Language: Azeri
[2023-11-17 21:15] VITALS: BP 140/100; BP 146/87; PULSE 42; PULSE 54; RESP 18; TEMP 36.6; O2SAT 98; BMI 22.8
[2023-11-17 21:38] VITALS: BP 135/87; BP 139/90; BP 146/87; PULSE 55; PULSE 59; PULSE 63
[2023-11-17 21:39] VITALS: BP 139/90; PULSE 59; RESP 18; TEMP 36.6; O2SAT 100
--- NOTE | 2023-11-17 21:40 | MHC.EDTECH ---
Patient BIBA,changed into hospital attire ,placed pt on the secured entrance monitor,orthostatic vitals taken per order,labs drawn and sent to lab, patient is unable to give a urine sample at this time,RN was made aware call crandall in reach
[2023-11-17] MEDS: 0.9 % Sodium Chloride 1,000 ML 999 ML IV (21:41)
[2023-11-17] MEDS: ondansetron HCL 4 MG/2 ML VIAL IVPUSH (21:41)
[2023-11-17 21:44] LABS: MANUAL DIFF FLAG NO
[2023-11-17 21:51] LABS: Basophils Percent Auto 0.3 % (0-2); Eosinophils Absolute Auto 0.1 X10*3/uL (0.0-0.4); Eosinophils Percent Auto 0.6 % (0-4); Hematocrit 48.3 % (42.0-52.0); Hemoglobin 16.6 g/dl (14.0-18.0); Imm Gran Abs Auto 0.06 X10*3/uL (0.00-0.03); Imm Gran Pct Auto 0.6 % (0.0-0.4); Lymphocytes Absolute Auto 1.4 X10*3/uL (1.2-4.9); Lymphocytes Percent Auto 14.5 % (20-40); Mean Corpuscular HGB Conc 34.4 g/dl (31.0-36.0); Mean Corpuscular Hemoglobin 30.2 pg (27.0-33.0); Mean Platelet Volume 10.1 fL (9.4-12.4); Monocytes Absolute Auto 0.6 X10*3/uL (0.1-1.2); Monocytes Percent Auto 5.7 % (2-11); Neutrophils Absolute Auto 7.7 x10*3/uL (2.0-8.3); Neutrophils Percent Auto 78.3 % (45-73); Platelet Count 219 X10*3/uL (160-400); Red Blood Count 5.49 X10*6/uL (4.60-5.80); Red Cell Distribution Width 12.1 % (11.0-16.0); White Blood Count 9.9 X10*3/uL (4.8-10.8)
[2023-11-17 22:09] LABS: Alanine Aminotransferase 27 U/L (0-40); Albumin Level 4.6 g/dL (3.5-5.0); Alkaline Phosphatase 99 U/L (39-117); Anion Gap 15 (12-20); Aspartate Amino Transferase 31 U/L (5-37); Bilirubin Total 0.9 mg/dL (0.0-1.0); Blood Urea Nitrogen 15 mg/dL (9-16); Calcium 10.2 mg/dL (8.4-10.2); Carbon Dioxide 24 mmol/L (22-29); Chloride 106 mmol/L (96-108); Creatinine Clr Calc Pharmacy 64.6; Estimated Glomerular Filt Rate > 60; Glucose Random 142 mg/dL (60-115); Magnesium 2.3 mg/dL (1.6-2.6); Potassium 3.8 mmol/L (3.3-5.1); Sodium 141 mmol/L (135-145); Total Protein 7.2 g/dL (6.5-8.0)
[2023-11-17 22:16] LABS: Troponin-I High Sensitivity 14.2 ng/L (<3.5-35.0)
--- NOTE | 2023-11-17 23:05 | PC.NURSE ---
this rn assumed care of pt, pt resting in stretcher, no acute distress noted. pt sinus mariia on tele 45-53bpm, pt reports this is chronic.
[2023-11-17 23:30] VITALS: BP 130/68; PULSE 46; RESP 16; TEMP 36.6; O2SAT 98
--- NOTE | 2023-11-17 23:35 | MHC.EDTECH ---
Patient was unable to give a urine sample at this time,provider made aware
[2023-11-18] MEDS: 0.9 % Sodium Chloride 1,000 ML 999 ML IV (01:10)
[2023-11-18 01:43] VITALS: BP 141/70; PULSE 54; RESP 18; TEMP 36.7; O2SAT 99
[2023-11-18 02:27] VITALS: BP 141/70; PULSE 54; RESP 18; TEMP 36.7; O2SAT 99
== END 2023-11-18 02:28 | disposition home or self-care (01) ==
PROVIDERS: Emergency Provider Internal Medicine; PCP Internal Medicine
DX: R55 Syncope and collapse (principal); R11.2 Nausea with vomiting, unspecified; Z87.891 Personal history of nicotine dependence; Z79.899 Other long term (current) drug therapy
CPT/HCPCS: 36415; 70450; 80053; 83735; 84484; 85025; 96361; 96374; 99284; J2405

== ENCOUNTER 2023-11-25 15:25 | Outpatient (AMB) | payer MEDICARE, SELFPAY ==
--- NOTE | 2023-11-25 15:33 | A.OFFPC_ITS ---
Vital Signs 11/25/23 15:34 Height 5 ft 10 in Weight 152 lb BMI 21.8 BP 142/76 H Blood Pressure Location Lt brachial Position Sitting Pulse 58 Pulse Source Pulse Oximeter Pulse Oximetry (%) 98 Oxygen Delivery Method Room Air Intake Visit Reasons: HDF [facility] 11/16 Fell, hit head Allergies No Known Allergies Allergy (Verified 11/25/23 15:38) Tobacco use date assessed: 07/06/23 Dental Screening Dental Screen Date: 07/06/23 HPI HPI Comments History of Present Illness Details 73 y/o male patient who presents to the clinic for EDF. Pt was admitted at [facility] on 11/17/23 after he suffered a Syncope episode. He was discharged home stable. All testings and images done in ED unremarkable. Pt has no concerns today. [facility] Medical History Osteoarthritis Insomnia Lyme arthritis of knee Pure hypercholesterolemia Leukopenia Hypermobility arthralgia Benign prostatic hyperplasia without lower urinary tract symptoms Surgical History History of hernia surgery Hx of colonoscopy (~05/2013) Family History Mother No problems noted. Father No problems noted. Social History Household Members: Spouse Housing: House Alcohol intake: current Alcohol intake frequency: a few times a week Alcohol type: beer Patient Tobacco Use Status: Former Tobacco user e-Cigarette/Vaping Use: Never Used Second Hand Smoke Exposure: Yes service: No Current occupational status: retired Cognitive needs: No Hearing needs: No Vision needs: Yes Questionnaire Thrive Questionnaire Date Thrive assessed: 07/06/23 EMILIANO-7 AMB Questionnaire EMILIANO-7 Date EMILIANO - 7 assessed: 07/06/23 Source: Developed by Drs. Gurvinder Dubois, Yulia Rollins, Tate Garcia and colleagues, with an educational justino from [employer]. Review of Systems Const All systems reviewed & are unremarkable except as noted in HPI and below Physical exam (Primary Care) BMI result Body Mass Index 21.8 Tobacco/Smoking Status: Tobacco use Status Tobacco use date assessed 07/06/23 07/06/23 09:45 Patient Tobacco Use Status Former Tobacco user 11/17/23 21:44 e-Cigarette/Vaping Use Never Used 07/06/23 09:45 Thrive Assessment: Date of Thrive Assessment Date Thrive assessed 07/06/23 07/06/23 09:45 Const General: cooperative, comfortable and no acute distress Nutritional Appearance: well nourished Orientation/consciousness: patient oriented x3 HENMT Head: Yes normocephalic Ears: external ears normal and TM abnormal bulging bilateral and with fluid behind the TM bilateral Face and sinus: Yes normal facial exam and Yes sinuses nontender Mouth: moist mucous membranes Throat: Yes posterior oropharynx normal Resp Effort & Inspection: normal respiratory effort and able to speak in complete sentences Auscultation: clear to auscultation bilaterally Cardio Heart sounds: S1 normal heart sound present and S2 normal heart sound present Neuro General: patient oriented x3 and gait normal Psych Speech and movement: Normal speech and movement present Vital Signs: Last Vital Signs Pulse 58 11/25/23 15:34 BP 142/76 H 11/25/23 15:34 Pulse Ox 98 11/25/23 15:34 Oxygen Delivery Method Room Air 11/25/23 15:34 BMI result Body Mass Index 21.8 Const General: cooperative, comfortable and no acute distress Nutritional Appearance: well nourished Orientation/consciousness: patient oriented x3 HEENT Head: Yes normocephalic Ears: external ears normal and TM abnormal bulging bilateral and with fluid behind the TM bilateral Face and sinus: Yes normal facial exam and Yes sinuses nontender Mouth: moist mucous membranes Throat: Yes posterior oropharynx normal Resp Effort & Inspection: normal respiratory effort and able to speak in complete sentences Auscultation: clear to auscultation bilaterally Cardio Heart sounds: S1 normal heart sound present and S2 normal heart sound present Neuro General: patient oriented x3 and gait normal Psych Speech and movement: Normal speech and movement present Assessment and Plan Assessment & Plan (1) Syncope: Code(s): R55 - Syncope and collapse Qualifiers: Syncope type: vasovagal syncope Qualified Code(s): R55 - Syncope and collapse Plan: Stable, probably Vasalvagal reaction. Coding Level of Care Code Est Pt Level 4 (42592) Diagnoses Vasovagal syncope R55 Syncope type: vasovagal syncope Time Spent (min) 20 Comment Spent reviewing hospital notes and Patient education
[2023-11-25 15:34] VITALS: BP 142/76; PULSE 58; O2SAT 98; BMI 21.8
== END 2023-11-25 16:49 | disposition home or self-care (01) ==
PROVIDERS: PCP Internal Medicine; Visit Provider Nurse Practitioner Family
DX: R55 Syncope and collapse (principal)
CPT/HCPCS: 99214

== ENCOUNTER 2023-12-29 07:44 | Outpatient (AMB) | payer MEDICARE, SELFPAY ==
--- NOTE | 2023-12-29 07:52 | MHC.OFFVIS ---
Vital Signs 12/29/23 07:56 Height 5 ft 10 in Weight 153 lb 14.122 oz BMI 22.1 BP 130/72 Blood Pressure Location Rt brachial Position Sitting Pulse 59 Pulse Source Pulse Oximeter Pulse Oximetry (%) 97 Oxygen Delivery Method Room Air Intake Visit Reasons: Knee pain Intake Note: Patient presents for knee pain. French Cord Binder Required: No Allergies No Known Allergies Allergy (Verified 12/29/23 07:54) Medication List - Last Reconciled 12/29/23 by Deya Floyd MD finasteride 5 mg PO DAILY 90 days meloxicam 15 mg PO DAILY zolpidem 10 mg PO BEDTIME PRN 90 days HPI Comments Details: Interval History: Last seen in this practice 08/03/2022 by Zamzam Guy NP At that time he had presented with acute knee pain (1 week duration) on a background of recent treatment for lyme disease following visualized tick bite and completed 21 days of doxycycline Arthrocentesis done during visit including Lyme serologies and synovial fluid PCR which showed positive IgG and negative IgM and PCR. Given Meloxicam 15mg x 15 days Today patient states that he has been having chronic right knee pain for the past 1 year. He is an avid runner, running 25 miles per week and is very active. He states that his pain is worse after a long run and is associated with swelling that resolves over time. Has had arthrocentesis and steroid injections in the past which has helped. He currently takes meloxicam but is concerned about the snf side effects of this and is hoping for better treatment options. Of note patient states that he used to play soccer as a teen and his right knee was the site of frequent trauma and would swell to the size of a grapefruit' at times With respect to Lyme, he denies any recent tick bites and no rashes No other joints involved Rheumatologic History: Diagnosed with Lyme in 1994 - he states that there was 8 months between time of infection and treatment. Over the years he had a few episodes of bilateral knee swelling, joint pain and difficulty speaking. He states that when these episodes presented he was retreated with doxycycline for 3 months and the symptoms resolved. Medication History: Meloxicam 15mg [facility] Medical History Osteoarthritis Insomnia Lyme arthritis of knee Pure hypercholesterolemia Leukopenia Hypermobility arthralgia Benign prostatic hyperplasia without lower urinary tract symptoms Surgical History History of hernia surgery Hx of colonoscopy (~05/2013) Family History Mother No problems noted. Father No problems noted. Social History Household Members: Spouse Housing: House Alcohol intake: current Alcohol intake frequency: a few times a week Alcohol type: beer Patient Tobacco Use Status: Former Tobacco user e-Cigarette/Vaping Use: Never Used Second Hand Smoke Exposure: Yes service: No Current occupational status: retired Cognitive needs: No Hearing needs: No Vision needs: Yes Review of Systems Const All systems reviewed & are unremarkable except as noted in HPI and below Denies fever(s) and Denies weight loss Card Denies chest pain and Denies leg edema Resp Denies cough Musc Denies myalgias, Denies atrophy, Reports arthralgias and Reports joint swelling Physical Exam Vital Signs: Last Vital Signs Pulse 59 12/29/23 07:56 BP 130/72 12/29/23 07:56 Pulse Ox 97 12/29/23 07:56 Oxygen Delivery Method Room Air 12/29/23 07:56 BMI result Body Mass Index 22.1 Const Other: Patient is an elderly male without signs or symptoms of distress MM pink and moist HEENT Other: No lymphadenopathy Resp Effort & Inspection: normal respiratory effort, able to speak in complete sentences and symmetric chest movement Extrem Other: Mild warmth noted to right knee compared to left knee associated with trace effusion Herbedens and Bouchards nodes noted to bilateral hands No evidence of synovitis Normal gait full ROM of bilateral knees right shoulder with decreased ROM due to history of full dislocation. But no current pain on palpation Office Procedures Joint Injection/Aspiration Joint Injection/Aspiration Primary Site: right knee Prep: site was prepped using aseptic technique Injected: 40 mg of, Kenalog, with 1 mL of and 1% plain lidocaine Approach Used: lateral parapatellar Procedure: The patient tolerated the procedure well Coding Details: Risks and benefits of procedure was explained including bleeding and infection. Patient understood and signed consent. All questions answered The right knee was sterilely prepped with chlorhexadine x 3. Topical lidocaine spray was administered as well as local anesthetic. 5cc of straw colored fluid was removed and 40mg kenalog with 1cc 1% lidocaine was adminsterd into the joint The procedure was well tolerated Advised against heavy exercise and instructions given to ice the knee - Large joint Procedure code (CPT) selection complete Results Reviewed Results Reviewed: Laboratory Tests 08/02/22 08/03/22 16:12 09:30 Synovial Source RIGHT KNEE Synovial WBC 0.437 Synovial RBC < 0.002 Synovial Neutrophils 14 Synovial Lymphocytes 21 Synovial Monocytes 6 Synovial Other Cells 59 Synovial Lyme DNA (PCR) NOT DETECTED Lyme Screen IgG & IgM POSITIVE Lyme Progressive Test 5.32 H Lyme IgG 18 kDa Band REACTIVE A Lyme IgG 23 kDa Band NON-REACTIVE Lyme IgG 28 kDa Band NON-REACTIVE Lyme IgG 30 kDa Band REACTIVE A Lyme IgG 45 kDa Band REACTIVE A Lyme IgG 58 kDa Band REACTIVE A Lyme IgG 66 kDa Band NON-REACTIVE Lyme IgG 93 kDa Band REACTIVE A Lyme IgG Ab (Immblot) POSITIVE A Lyme IgM 23 kDa Band NON-REACTIVE Lyme IgM 39 kDa Band NON-REACTIVE Lyme IgM 41 kDa Band NON-REACTIVE Lyme IgM Interpretaton NEGATIVE XRs personally reviewed by me Right knee XR 08/2021 (my read) - no evidence of joint space narrowing. mild subchondral sclerosis. Early signs of OA Assessment & Plan Assessment & Plan (1) Osteoarthritis, knee: Code(s): M17.9 - Osteoarthritis of knee, unspecified Category: Medical Plan: Patient is a 73 y.o very active male who presents for evaluation of chronic right knee pain At this time low suspicion of post lyme inflammatory arthritis Given his history of trauma to the right knee when he played soccer as a teen and his current active state signs and symptoms are most consistent with osteoarthritis Steroid injection given today Also recommended using topical diclofenac gel 1% Can continue using meloxicam though would use sparingly given the risk of GI and renal side effects in this age group Orders: Orders XR knee LT 3V Today M17.9 - Osteoarthritis of knee, unspecified XR knee RT 3V Today M17.9 - Osteoarthritis of knee, unspecified AMB Joint Injection/Aspiration Today M17.9 - Osteoarthritis of knee, unspecified Medications: New diclofenac sodium 1% (Voltaren Arthritis Pain) apply to single knee up to 4 times a day when experiencing pain 4 grams topical QID 30 days PRN 100 grams 3RF Knee pain M17.9 - Osteoarthritis of knee, unspecified Coding Level of Care Code Est Pt Level 3 (98844) Diagnoses Osteoarthritis, knee M17.9 CPT Codes Coding - 99217 Large joint: 44518 - Large joint ([id number])
[2023-12-29 07:56] VITALS: BP 130/72; PULSE 59; O2SAT 97; BMI 22.1
== END 2023-12-29 08:37 | disposition home or self-care (01) ==
PROVIDERS: PCP Internal Medicine; Visit Provider Student in an Organized Health Care Education/Training Program
DX: M17.0 Bilateral primary osteoarthritis of knee (principal)
CPT/HCPCS: 20610; 99214

== ENCOUNTER → 2023-12-29 07:44 | Outpatient (BNVA) | payer MEDICARE, SELFPAY | PROVIDERS: PCP Internal Medicine; Visit Provider Student in an Organized Health Care Education/Training Program | DX: M17.11 Unilateral primary osteoarthritis, right knee (principal) | CPT/HCPCS: 20610; 99212 ==

== ENCOUNTER 2024-01-06 09:30 | Outpatient (REF) | payer MEDICARE, SELFPAY ==
--- NOTE | ~2024-01-06 | XR_ITS ---
EXAMINATION: XR KNEE LEFT 2 VIEWS CLINICAL INFORMATION: Osteoarthritis of knee, unspecified M17.9. COMPARISON: XR Left knee 01/14/2022 TECHNIQUE: Two views of the left knee. FINDINGS: No fracture or joint effusion. Alignment is anatomic. Mild medial compartment joint space narrowing. No abnormal soft tissue calcification. XR/XR knee LT 2V IMPRESSION: Mild degenerative disease. Electronically signed by: Cassi Chino MD 03/14/2024 03:28 PM [facility]
--- NOTE | ~2024-01-06 | XR_ITS ---
EXAMINATION: XR KNEE RIGHT 2 VIEWS CLINICAL INFORMATION: Osteoarthritis of knee, unspecified M17.9. COMPARISON: XR Right knee 01/14/2022 TECHNIQUE: Two views of the right knee. FINDINGS: No fracture or joint effusion. Alignment is anatomic. Mild medial lateral compartment narrowing. No abnormal soft tissue calcification. XR/XR knee RT 2V IMPRESSION: Mild degenerative disease of the right knee. Electronically signed by: Cassi Chino MD 03/14/2024 04:36 PM [facility]
[2024-01-06 09:52] LABS: MANUAL DIFF FLAG NO
[2024-01-06 11:06] LABS: Basophils Percent Auto 0.8 % (0-2); Eosinophils Absolute Auto 0.1 X10*3/uL (0.0-0.4); Eosinophils Percent Auto 2.5 % (0-4); Hemoglobin 15.3 g/dl (14.0-18.0); Imm Gran Abs Auto 0.02 X10*3/uL (0.00-0.03); Imm Gran Pct Auto 0.4 % (0.0-0.4); Lymphocytes Absolute Auto 1.8 X10*3/uL (1.2-4.9); Lymphocytes Percent Auto 36.9 % (20-40); Mean Corpuscular HGB Conc 33.3 g/dl (31.0-36.0); Mean Corpuscular Hemoglobin 30.1 pg (27.0-33.0); Mean Corpuscular Volume 90.6 fL (80.0-98.0); Mean Platelet Volume 10.3 fL (9.4-12.4); Monocytes Absolute Auto 0.5 X10*3/uL (0.1-1.2); Monocytes Percent Auto 9.7 % (2-11); Neutrophils Absolute Auto 2.4 x10*3/uL (2.0-8.3); Neutrophils Percent Auto 49.7 % (45-73); Platelet Count 211 X10*3/uL (160-400); Red Blood Count 5.08 X10*6/uL (4.60-5.80); Red Cell Distribution Width 11.9 % (11.0-16.0); White Blood Count 4.7 X10*3/uL (4.8-10.8)
[2024-01-06 11:33] LABS: Appearance Urine Clear; Color Urine Yellow; Glucose Urine UA Negative (Negative); Leukocyte Esterase Urine Negative (Negative); Nitrite Urine Negative (Negative); Specific Gravity - Urine 1.015 (1.005-1.025); Urine Blood Negative (Negative); Urine Ketones Negative (Negative); Urine Protein Negative (Neg-Trace)
[2024-01-06 12:31] LABS: Prostate Specific Antigen 2.72 ng/mL (<0.05-4.0)
[2024-01-06 12:37] LABS: TSH reflex Free T4 1.57 uIU/mL (0.32-4.0); Vitamin D 25-OH Total 58.5 ng/mL (>30)
[2024-01-06 12:42] LABS: Alanine Aminotransferase 22 U/L (0-40); Alkaline Phosphatase 102 U/L (39-117); Anion Gap 12 (12-20); Aspartate Amino Transferase 25 U/L (5-37); Bilirubin Total 0.5 mg/dL (0.0-1.0); Blood Urea Nitrogen 20 mg/dL (9-16); Calcium 9.4 mg/dL (8.4-10.2); Carbon Dioxide 25 mmol/L (22-29); Chloride 106 mmol/L (96-108); Cholesterol 212 mg/dL (<200); Estimated Glomerular Filt Rate > 60; Glucose Fasting 101 mg/dL (60-99); HDL Cholesterol 56 mg/dL (>40); LDL Cholesterol Calculated 136 mg/dL (<100); Sodium 139 mmol/L (135-145); Total Protein 6.5 g/dL (6.5-8.0); Triglycerides 101 mg/dL (<150)
== END 2024-01-06 09:31 | disposition home or self-care (01) ==
LOC: HO.XRAY 09:30
PROVIDERS: Absent Provider Student in an Organized Health Care Education/Training Program; PCP Internal Medicine; Visit Provider Internal Medicine
DX: Z00.00 Encounter for general adult medical examination without abnormal findings (principal); D64.9 Anemia, unspecified; E78.00 Pure hypercholesterolemia, unspecified; N40.0 Benign prostatic hyperplasia without lower urinary tract symptoms; R30.0 Dysuria; E55.9 Vitamin D deficiency, unspecified; M17.9 Osteoarthritis of knee, unspecified; Z12.5 Encounter for screening for malignant neoplasm of prostate
CPT/HCPCS: 36415; 73560; 80053; 80061; 81003; 82306; 84153; 84443; 85025

== ENCOUNTER 2024-01-11 09:06 | Outpatient (AMB) | payer MEDICARE, SELFPAY ==
[2024-01-11 09:11] VITALS: BP 128/64; PULSE 54; O2SAT 98; BMI 22.3
--- NOTE | 2024-01-11 09:11 | A.OFFPC_ITS ---
Vital Signs 01/11/24 09:11 Height 5 ft 10 in Weight 155 lb 8 oz BMI 22.3 BP 128/64 Blood Pressure Location Lt brachial Position Sitting Pulse 54 Pulse Source Pulse Oximeter Pulse Oximetry (%) 98 Oxygen Delivery Method Room Air Intake Visit Reasons: Annual Exam [facility] Administrator Required: No Accompanied by: Self / Same As Patient Allergies No Known Allergies Allergy (Verified 01/11/24 09:36) Medication List - Last Reconciled 01/11/24 by Brian Tay MD diclofenac sodium 1% (Voltaren Arthritis Pain) 4 grams topical QID PRN 30 days finasteride 5 mg PO DAILY 90 days meloxicam 15 mg PO DAILY zolpidem 10 mg PO BEDTIME PRN 90 days Tobacco use date assessed: 01/11/24 Fall risk assessment: 1 Fall in past year Last assessed Fall Risk: 01/11/24 Dental Screening Dental Screen Date: 01/11/24 Did you have a dental visit in the last 12 months?: Yes Did you have a dental problem in the last 6 months where you did not have access to dental care?: No Was dental information given to patient?: Patient has dentist HPI Annual Exam HPI Details Patient comes in today for his annual physical examination States that he feels okay but recalls passing out a couple of months ago on the day of his colonoscopy States that he woke up that morning and went out for a 6-mile run and recalls that it was hot that day (summer) when he was running He then had some coffee to drink when he got back from his run and a few minutes later, suddenly felt dizzy and passed out He was brought to the ER for further evaluation and his work ups came back mostly negative - was reportedly told that he had what was likely a vasovagal episode States that he has not had any further recurrence of syncope since and he currently denies any headaches or dizziness Denies any chest pains, no SOB No nausea/vomiting, no abdominal pain No change in bowel habits noted He denies any acute urinary symptoms He still has on and off knee pains but states that these are mostly manageable - relates that he still runs some local half-marathons when he can He takes Meloxicam as needed for knee pain and states that they have been helping a lot He had his follow up labs done a few days ago - to discuss his results He had to cancel his colonoscopy a couple of months ago due to his vasovagal episode when he ended up in the ER and he is now rescheduled for 03/05/[address] Guerrero [facility] Medical History Osteoarthritis Insomnia Lyme arthritis of knee Pure hypercholesterolemia Leukopenia Hypermobility arthralgia Benign prostatic hyperplasia without lower urinary tract symptoms Surgical History History of hernia surgery Hx of colonoscopy (~05/2013) Family History Mother No problems noted. Father No problems noted. Social History Household Members: Spouse Housing: House Alcohol intake: current Alcohol intake frequency: a few times a week Alcohol type: beer Patient Tobacco Use Status: Former Tobacco user e-Cigarette/Vaping Use: Never Used Second Hand Smoke Exposure: Yes service: No Current occupational status: retired Cognitive needs: No Hearing needs: No Vision needs: Yes Questionnaire PHQ-9 Over the last 2 weeks, how often have you been bothered by any of the following problems? 1. Little interest or pleasure in doing things: not at all 2. Feeling down, depressed, or hopeless: not at all 3. Trouble falling or staying asleep, or sleeping too much: not at all 4. Feeling tired or having little energy: not at all 5. Poor appetite or overeating: not at all 6. Feeling bad about yourself - or that you are a failure or have let yourself or your family down: not at all 7. Trouble concentrating on things, such as reading the newspaper or watching television: not at all 8. Moving or speaking so slowly that other people could have noticed. Or the opposite - being so fidgety or restless that you have been moving around a lot more than usual: not at all 9. Thoughts that you would be better off or of hurting yourself in some way: not at all Total score: 0 Depression Screening Interpretation: Negative Depression Screening Done: Yes 97861 - PHQ-9 Billing: Yes Source: Developed by Drs. Gurvinder Dubois, Yulia Rollins, Tate Garcia and colleagues, with an educational justino from [employer]. Thrive Questionnaire Date Thrive assessed: 01/11/24 I am a: Patient What is your living situation today?: I have a steady place to live Within the past 12 months, did the food you bought not last and you didn't have the money to get more?: Never true Within the past 12 months, did you worry whether your food would run out before you got money to buy more?: Never true Do you have trouble paying for medicines?: No Do you have trouble getting transportation to medical appointments?: No Do you have trouble paying your heating and electricity bill?: No Do you have trouble taking care of your child, family member or friend?: I choose not to answer this question Do you have trouble with day-to-day activities such as bathing, preparing meals, shopping, managing finances, etc.?: No Are you currently unemployed and looking for a job?: No Are you interested in more education?: I choose not to answer this question Please select the resources that you would like help with: None Currently or been in a relationship where the following occur: I choose not to answer THRIVE Score: 0 AUDIT C Alcohol Use Questionnaire (AUDIT-C) 1. How often do you have a drink containing alcohol?: Monthly or less 2. How many drinks containing alcohol do you have on a typical day when you are drinking?: 1 or 2 3. How often do you have six or more drinks on one occasion?: Never Total Score: 1 Score Reviewed/Action Taken: Yes EMILIANO-7 AMB Questionnaire EMILIANO-7 Date EMILIANO - 7 assessed: 01/11/24 Feeling nervous, anxious, or on edge: 0 = Not at all Not being able to stop or control worryin = Not at all Worrying too much about different things: 0 = Not at all Trouble relaxin = Not at all Being so restless that it is hard to sit still: 0 = Not at all Becoming easily annoyed or irritable: 0 = Not at all Feeling afraid as if something awful might happen: 0 = Not at all Total EMILIANO-7 score (0-4 normal; 5-9 mild; 10-14 moderate; 15-21 severe): 0 Source: Developed by Drs. Gurvinder Dubois, Yulia Rollins, Tate Garcia and colleagues, with an educational justino from [employer]. Review of Systems Const Denies chills, Denies fatigue, Denies fever(s), Denies headache(s), Denies malaise and Denies weakness Eyes Denies blurry vision, Denies change in vision, Denies irritation and Denies itchy eyes ENT Denies dysphagia, Denies dizziness, Denies otalgia, Denies headache(s), Denies nasal congestion, Denies neck pain, Denies odynophagia and Denies sore throat Card Denies chest pain, Denies rapid heart rate, Denies irregular heart rhythm, Denies palpitations and Denies dyspnea Resp Denies chest congestion, Denies cough, Denies dyspnea and Denies wheezing GI Denies abdominal pain, Denies bloating, Denies constipation, Denies dysphagia, Denies heartburn, Denies diarrhea, Denies nausea, Denies odynophagia and Denies vomiting Denies hematuria, Denies difficulty urinating, Denies dysuria, Denies urinary frequency and Denies urinary urgency Musc Denies back pain, Reports arthralgias (on and off in both knees, mostly mild), Denies joint swelling, Denies muscle weakness and Denies neck pain Skin/Breast Denies change in pigmentation, Denies lesions, Denies rash and Denies unusual bruising Neuro Denies dizziness, Denies headache(s), Denies paresthesias and Denies weakness Endo Denies fatigue and Denies palpitations Aller/Immun Denies itchy eyes and Denies wheezing Physical exam (Primary Care) Vital Signs: Last Vital Signs Pulse 54 01/11/24 09:11 BP 128/64 01/11/24 09:11 Pulse Ox 98 01/11/24 09:11 Oxygen Delivery Method Room Air 01/11/24 09:11 BMI result Body Mass Index 22.3 Tobacco/Smoking Status: Tobacco use Status Tobacco use date assessed 01/11/24 01/11/24 09:12 Patient Tobacco Use Status Former Tobacco user 01/11/24 09:12 e-Cigarette/Vaping Use Never Used 01/11/24 09:12 PHQ-9: PHQ-9 Score PHQ-9: Total score 0 01/11/24 09:40 Depression Screening Interpretation: Negative Thrive Assessment: Date of Thrive Assessment Date Thrive assessed 01/11/24 01/11/24 09:12 Currently or been in a relationship where the following occur: I choose not to answer Const General: no acute distress, alert and awake Orientation/consciousness: patient oriented x3 HENMT Head: Yes normocephalic and Yes atraumatic Ears: external ears normal, TM's normal bilaterally and EAC's normal General nose exam: No nasal discharge present Face and sinus: Yes normal facial exam and Yes sinuses nontender Teeth and gingiva: dentition normal Throat: Yes posterior oropharynx normal and Yes tonsils normal (no TP congestion) Eyes Eyelids: Yes eyelids normal Conjunctivae: conjunctivae normal Pupils: Equal, round and reactive pupils present EOM: EOMs intact bilaterally Neck Neck: Yes no lymphadenopathy and Yes supple Thyroid: Thyroid normal Resp Auscultation: clear to auscultation bilaterally, no rales and no wheezes Cardio Rate: regular rate Rhythm: regular rhythm Heart sounds: no murmurs GI Palpation (GI): Soft to palpation, nontender and No hepatosplenomegaly present Auscultation: normal bowel sounds General: Yes no CVA tenderness Back/Spine/Pelvis Back: no CVA tenderness Thoracic/Lumbar Spine: thoracic and lumbar spine normal to inspection Skin Lesions: no lesions Rashes: no rashes Neuro General: patient oriented x3, moves all extremities, no focal motor deficits and CN's II-XI intact bilaterally Cranial nerves: Yes Equal, round and reactive pupils present Cognition (Neuro): normal cognition Gait exam (Neuro): Normal gait present Extrem General: Yes no clubbing, cyanosis or edema Office Procedures Flu Questionnaire Does the patient have a severe egg allergy?: No Immunizations Fluarix Triv [id number] (PF) 45 mcg (15 mcg x 3)/0.5 mL IM syringe Performing Provider: Brian Tay MD [facility] Documented (not given) by: JEAN CLAUDE Vu on 01/11/24 09:21 Reason Not Given: Received Previously Results Reviewed Results Reviewed: Laboratory Tests 01/06/24 01/06/24 09:50 09:51 WBC 4.7 L Hgb 15.3 Hct 46.0 Plt Count 211 Sodium 139 Potassium 4.0 Creatinine 0.74 Estimated GFR > 60 Fasting Glucose 101 H Calcium 9.4 D AST 25 ALT 22 Triglycerides 101 Cholesterol 212 H LDL Cholesterol, Calc 136 H HDL Cholesterol 56 Prostate Specific Ag 2.72 25-OH Vitamin D Total 58.5 TSH 1.57 Ur Specific [place] 1.015 Urine Protein Negative Urine Glucose (UA) Negative Urine Blood Negative Urine Nitrite Negative Ur Leukocyte Esterase Negative Coding Level of Care Code Est Pt Prev Care >65y(67729) Diagnoses Annual physical exam Z00.00 Vasovagal syncope R55 Pure hypercholesterolemia E78.00 Elevated blood pressure reading R03.0 Rotator cuff tear arthropathy of right shoulder M75.101; M12.811 Lyme arthritis of knee A69.23 Hypermobility arthralgia M25.50 Benign prostatic hyperplasia without lower urinary tract symptoms N40.0 Insomnia, unspecified type G47.00 Insomnia type: unspecified Assessment & Plan Assessment & Plan (1) Annual physical exam: Code(s): Z00.00 - Encounter for general adult medical examination without abnormal findings Category: Medical Plan: Results of his labs done a few days ago reviewed and discussed with patient He last had his colonoscopy done in [place] [address] Guerrero and he is due for repeat colonoscopy now - he was originally scheduled for this in November 2023 but he had a vasovagal episode and had to cancel his procedure then He is now scheduled for his repeat colonoscopy on 03/05/2024 (2) Vasovagal syncope: Code(s): R55 - Syncope and collapse Category: Medical Plan: He had a vasovagal episode back in November 2023 when he was supposed to go for his colonoscopy and his procedure was cancelled Work ups done in the ER were negative Discussed that his episode back then was likely due to dehydration and / or excessive physical exertion as patient did go for a 6 mile run that morning and also had some coffee at the time Will send him for echocardiogram for further evaluation Will also refer him to cardiology for further evaluation and management (3) Pure hypercholesterolemia: Code(s): E78.00 - Pure hypercholesterolemia, unspecified Category: Medical Plan: He is advised that his cholesterol levels have increased slightly from previous Reinforced low cholesterol diet - patient admitted to eating hamburgers and smoked sausages over the summer and states that he will try to do better on his diet Patient continues to decline pharmacotherapy and prefers to continue with diet modification alone Will recheck his fasting lipids and labs in 6 months for follow up (4) Elevated blood pressure reading: Code(s): R03.0 - Elevated blood-pressure reading, without diagnosis of hypertension Category: Medical Plan: Reinforced low sodium diet His blood pressure appears controlled today and he is reminded to continue monitoring his blood pressure regularly (5) Rotator cuff tear arthropathy of right shoulder: Code(s): M75.101 - Unspecified rotator cuff tear or rupture of right shoulder, not specified as traumatic; M12.811 - Other specific arthropathies, not elsewhere classified, right shoulder Category: Medical Plan: Right shoulder MRI done in February 2022 revealed (+) completely torn and retracted subscapularis tendon with moderate to severe muscle atrophy; supraspinatus tendinosis with ill-defined partial tearing posteriorly; mild supraspinatus muscle atrophy; completely torn and retracted biceps tendon and moderate acromioclavicular and glenohumeral osteoarthritis He has been advised by orthopedics to try conservative therapy for now States that his right shoulder pain and ROM have improved significantly with physical therapy and he continues to do the shoulder exercises and stretching that he was taught by physical therapy regularly He is happy that he did not have to undergo surgical intervention for his shoulder - to continue following up with orthopedics as scheduled (6) Lyme arthritis of knee: Comment: treated in 1994 no symptoms since 2014 Code(s): A69.23 - Arthritis due to Lyme disease Category: Medical Plan: Patient was treated for Lyme disease in 1994 X-rays of both knees done back in January 2022 came out normal He had repeat knee x-rays done last week but these reports are still unavailable at this time States that he takes Meloxicam PRN with good relief Was also seen by rheumatology a couple of weeks ago and had cortisone injections into his knees, which he feels help States that he is also still taking some OTC Turmeric and Osteo-flex and feels that they are helping and that he has been able to continue running on a regular basis, which he is passionate about (7) Hypermobility arthralgia: Code(s): M25.50 - Pain in unspecified joint Category: Medical Plan: Continue Meloxicam 15 mg QD PRN Follow up with rheumatology as scheduled (8) Benign prostatic hyperplasia without lower urinary tract symptoms: Code(s): N40.0 - Benign prostatic hyperplasia without lower urinary tract symptoms Category: Medical Plan: Continue Finasteride 5 mg QD Follow up with urology as scheduled (9) Insomnia: Code(s): G47.00 - Insomnia, unspecified Category: Medical Qualifiers: Insomnia type: unspecified Qualified Code(s): G47.00 - Insomnia, unspecified Plan: Sleep hygiene reinforced Continue Zolpidem 10 mg Q HS PRN Plan Follow up in 6 months Orders: Orders Influenza [id number] Immunization Today Z23 - Encounter for immunization Lipid Panel 6 Months E78.00 - Pure hypercholesterolemia, unspecified CA echo transthoracic complete Today R55 - Syncope and collapse Comprehensive [place]. Panel Fast 6 Months E78.00 - Pure hypercholesterolemia, unspecified Referrals Cardiology Referral R55 - Syncope and collapse
== END 2024-01-11 10:11 | disposition home or self-care (01) ==
PROVIDERS: PCP Internal Medicine; Visit Provider Internal Medicine
DX: Z00.00 Encounter for general adult medical examination without abnormal findings (principal); A69.23 Arthritis due to Lyme disease; R55 Syncope and collapse; E78.00 Pure hypercholesterolemia, unspecified; R03.0 Elevated blood-pressure reading, without diagnosis of hypertension; M75.101 Unspecified rotator cuff tear or rupture of right shoulder, not specified as traumatic; M12.811 Other specific arthropathies, not elsewhere classified, right shoulder; M25.50 Pain in unspecified joint; N40.0 Benign prostatic hyperplasia without lower urinary tract symptoms; G47.00 Insomnia, unspecified

== ENCOUNTER → 2024-01-11 09:06 | Outpatient (BNVA) | payer MEDICARE, SELFPAY | PROVIDERS: PCP Internal Medicine; Visit Provider Internal Medicine | DX: Z00.01 Encounter for general adult medical examination with abnormal findings (principal); R55 Syncope and collapse; E78.00 Pure hypercholesterolemia, unspecified; R03.0 Elevated blood-pressure reading, without diagnosis of hypertension; A69.23 Arthritis due to Lyme disease; M75.101 Unspecified rotator cuff tear or rupture of right shoulder, not specified as traumatic; M12.811 Other specific arthropathies, not elsewhere classified, right shoulder; N40.0 Benign prostatic hyperplasia without lower urinary tract symptoms | CPT/HCPCS: 90471; 96127; 99397 ==

== ENCOUNTER → 2024-02-09 09:45 | Outpatient (REF) | payer MEDICARE, SELFPAY ==
--- NOTE | 2024-02-09 09:47 | CA_ITS ---
Transthoracic Echocardiogram Patient (Last, First, Middle): Varinder Sanchez, Gender: Male Date of : 1950 Age: 73 Procedure Date: 02/09/2024 Procedure Type: Transthoracic Echocardiogram Location: OP Height: 177.8 cm Weight: 70.31 kg BSA: 1.87 m2 Heart Rate: 56 bpm BP: 128 / 62 mmHg Gunite Mixer: PETER Referring MD: Brian Tay MD Scene Shifter: Greg Man MD Symptoms: R55 - Syncope and collapse Study Quality: Adequate ECG Rhythm: Bradycardia Conclusions: - 1. Normal LV ejection fraction 55-60% with impaired relaxation filling pattern 2. Calcific aortic valve changes noted with normal cardiac valvular Dopplers 3. Normal RV systolic pressure 4. No gross pericardial effusion Findings Left Ventricle Normal left ventricular size, thickness, and systolic function. The visually estimated ejection fraction is between 55-60%. Spectral Doppler is indicative of an impaired relaxation filling pattern. There is mild septal asymmetric hypertrophy. Right Ventricle Normal right ventricular cavity size and systolic function. Atria Both atria are normal in size. There is no evidence of interatrial shunt. Aortic Valve There is mild calcification of the aortic valve. There is mild thickening of the aortic valve. There is no aortic valve stenosis. The peak aortic velocity is 1.19 m/s with a calculated peak gradient of 6 mmHg. There is no aortic valve regurgitation. Mitral Valve Likely normal mitral valve structure and function. There is no mitral valve regurgitation. There is no mitral valve stenosis. Pulmonic Valve The pulmonic valve was not well visualized. Tricuspid Valve Likely normal tricuspid valve structure and function. There is trace tricuspid valve regurgitation. The right ventricular systolic pressure is normal. The right ventricular systolic pressure is 20 mmHg. Normal right atrial pressure. There is no evidence of pulmonary hypertension. Great Vessels All visible segments of the aorta are normal in size. The pulmonary artery was not well visualized. Venous The inferior vena cava is normal in size and collapses greater than 50% with inspiration. Pericardium/Pleural There is no evidence of pericardial effusion. Prior Study Comparison No prior study available for comparison. Measurements 2D Linear Measurements IVSd: 1.25 0.6-0.9/0.6-1.0 cm LVIDd: 4.74 3.9-5.3/4.2-5.9 cm LVIDd Index: 2.53 2.4-3.2/2.2-3.1 cm/m2 LVIDs: 3.11 2.0-3.6 cm LVPWd: 0.68 0.7-1.1 cm LA Diam: 3.20 2.7-3.8/3.0-4.0 cm LAIDs Index: 1.71 1.5-2.3 cm/m2 LV Mass: 197.30 67-162/88-224 g LV Mass Index: 105.51 43-95/49-115 g/m2 LVOT Diam: 2.20 3.0+(-)1.3 cm 2D Systolic Function EF 4C: 50.60 >55% EF 2C: 57.40 >55% EF BiP: 56.50 >55% Mitral Valve MV Pk E: 0.37 MV PK A: 0.63 MV Decel Time: 426.00 E/A: 0.60 E'Lateral: 4.24 E'Medial: 3.48 E/E' Med: 10.70 E/E' Lat: 8.80 PHT: 125.00 MVA PHT: 1.76 Decel [place]: 0.88 Aortic Valve AoV Pk [place]: 1.19 AoV Pk Grad: 6.00 CHARITY: 2.79 LVOT LVOT Pk [place]: 0.85 LVOT Mn Callum: 0.52 LVOT VTI: 0.14 LVOT Pk Grad: 3.00 LVOT Mn Grad: 1.00 LVOT Diam: 2.20 LVOT Area: 3.80 Diastolic Function MV Pk E: 0.37 MV Pk A: 0.63 E/A: 0.60 E'Medial: 3.48 E/E' Med: 10.70 E' Laterial: 4.24 E/E' Lat: 8.80 Right Ventricle TAPSE (mm): 25.70 TVS' Callum: 14.70 Tricuspid Valve TR Pk Callum: 2.07 TR Pk Grad: 17.00 RA Press: 3.00 RVSP: 20.00 Great Vessels Aorta Sinus of Valsalva: 3.30 2.0-3.5 cm Ao Asc: 3.60 2.1-3.4 cm Pulmonary Valve PV Pk Callum: 1.13 Peak PV Grad: 5.00 Updated in Other Vendor System with Status of Final Greg Man MD electronically signed on 02/09/2024 2:43:08 PM with status of Final
== END ==
LOC: HO.CARD 09:45
PROVIDERS: PCP Internal Medicine; Visit Provider Internal Medicine
DX: R55 Syncope and collapse (principal)
CPT/HCPCS: 93306

== ENCOUNTER → 2024-02-09 09:47 | Outpatient (BNV) | payer MEDICARE, SELFPAY | PROVIDERS: PCP Internal Medicine; Visit Provider Internal Medicine Cardiovascular Disease | DX: I35.8 Other nonrheumatic aortic valve disorders (principal); I42.2 Other hypertrophic cardiomyopathy | CPT/HCPCS: 93306 ==

== ENCOUNTER 2024-03-05 08:14 | Day surgery (SDC) | payer MEDICARE, SELFPAY ==
[2023-11-16 12:51] VITALS: BMI 23.6
--- NOTE | 2023-11-16 15:22 | HO.ANESPROP2 ---
HPI - Anesthesia Eval Consult details Narrative: 73yo M for Colonoscopy PMF Active Problems Active Problems: All Active Problems Osteoarthritis, knee (Acute) Bronchitis (Acute) Rotator cuff tear arthropathy of right shoulder (Acute) Painful arc syndrome of right shoulder (Acute) Skin exam for malignant neoplasm (Acute) COVID-19 (Acute) Elevated blood pressure reading (Acute) Right shoulder pain (Acute) Insomnia (Acute) Benign prostatic hyperplasia without lower urinary tract symptoms (Acute) Leukopenia (Acute) Hypermobility arthralgia (Acute) Lyme arthritis of knee (Acute) Pure hypercholesterolemia (Acute) Past Medical History Medical History (Updated 11/16/23 @ 12:51 by Carmela Ruelas RN) Osteoarthritis Insomnia Lyme arthritis of knee Pure hypercholesterolemia Leukopenia Hypermobility arthralgia Benign prostatic hyperplasia without lower urinary tract symptoms Family History Family History Mother No problems noted. Father No problems noted. Surgical History Surgical History (Updated 11/16/23 @ 12:51 by Carmela Ruelas RN) History of hernia surgery Hx of colonoscopy (~05/2013) Social History Social History (Updated 11/16/23 @ 12:52 by Carmela Ruelas RN) Household Members: Spouse Housing: House Alcohol intake: current Alcohol intake frequency: a few times a week Patient Tobacco Use Status: Former Tobacco user e-Cigarette/Vaping Use: Never Used Second Hand Smoke Exposure: Yes service: No Current occupational status: retired Cognitive needs: No Hearing needs: No Vision needs: Yes Meds Allergies Allergy/AdvReac Type Severity Reaction Status Date / Time No Known Allergies Allergy Verified 07/06/23 10:10 Exam Height,Weight and Vital Signs: Height 5 ft 7 in Weight 68.492 kg Assessment and Plan Assessment Anesthesia Assessment: Chart Reviewed
--- NOTE | 2023-11-18 08:47 | PC.NURSE ---
Procedure cancelled by patient ? syncope. Will reschedule
[2024-02-28 14:32] VITALS: BMI 23.6
--- NOTE | 2024-02-29 08:53 | HO.ANESPROP2 ---
HPI - Anesthesia Eval Consult details Narrative: 73yo M for Colonoscopy Pt with syncope after running 6 miles on a hot day after? completing colonoscopy prep. Echo by pcp OK. Cardiac referral pending. [facility] Active Problems Active Problems: All Active Problems Osteoarthritis, knee (Acute) Bronchitis (Acute) Rotator cuff tear arthropathy of right shoulder (Acute) Painful arc syndrome of right shoulder (Acute) Skin exam for malignant neoplasm (Acute) COVID-19 (Acute) Elevated blood pressure reading (Acute) Right shoulder pain (Acute) Insomnia (Acute) Benign prostatic hyperplasia without lower urinary tract symptoms (Acute) Leukopenia (Acute) Hypermobility arthralgia (Acute) Lyme arthritis of knee (Acute) Pure hypercholesterolemia (Acute) Past Medical History Medical History (Updated 03/05/24 @ 08:34 by Francie Espinoza RN) Syncope Osteoarthritis Insomnia Lyme arthritis of knee Pure hypercholesterolemia Leukopenia Hypermobility arthralgia Benign prostatic hyperplasia without lower urinary tract symptoms Family History Family History Mother No problems noted. Father No problems noted. Surgical History Surgical History (Updated 03/05/24 @ 08:33 by Francie Espinoza RN) History of hernia surgery Hx of colonoscopy (~05/2013) Social History Social History Household Members: Spouse Housing: House Alcohol intake: current Alcohol intake frequency: a few times a week Alcohol type: beer Patient Tobacco Use Status: Former Tobacco user e-Cigarette/Vaping Use: Never Used Second Hand Smoke Exposure: Yes Use of substances other than those prescribed or required for medical reasons: No Are you DNR?: No Advance Directives: No Advance Directives Information Provided: Yes Recently lost weight without trying: No Nutrition Risks: No Nutritional Risk service: No Current occupational status: retired Cognitive needs: No Hearing needs: No Vision needs: Yes Meds Allergies Allergy/AdvReac Type Severity Reaction Status Date / Time No Known Allergies Allergy Verified 01/11/24 09:36 Home Medications ?Medication ?Instructions ?Recorded ?Confirmed ?Last Taken ?Type zolpidem 10 mg tablet 5 mg PO BEDTIME PRN insomnia 02/28/24 02/28/24 Unknown History Exam Height,Weight and Vital Signs: Height 5 ft 7 in Weight 68.492 kg Pertinent Lab Results Pertinent Lab Results: Laboratory Tests 01/06/24 09:51 WBC 4.7 L Hgb 15.3 Hct 46.0 Plt Count 211 Sodium 139 Potassium 4.0 Chloride 106 Carbon Dioxide 25 BUN 20 H Creatinine 0.74 Narrative Narrative: ECHO 02/2024 Conclusions: - 1. Normal LV ejection fraction 55-60% with impaired relaxation filling pattern 2. Calcific aortic valve changes noted with normal cardiac valvular Dopplers 3. Normal RV systolic pressure 4. No gross pericardial effusion Assessment and Plan Assessment Anesthesia Assessment: Chart Reviewed
[2024-03-05 08:39] VITALS: BMI 21.6
[2024-03-05 08:44] VITALS: BP 187/95; PULSE 61; RESP 16; TEMP 36.4; O2SAT 96
[2024-03-05] MEDS: Lactated Ringers 1,000 ML 100 ML IVCONT (08:58)
[2024-03-05 10:41] VITALS: BP 101/61; PULSE 48; RESP 18; TEMP 36.1; O2SAT 96
--- NOTE | 2024-03-05 10:42 | P.BOP_ITS ---
Brief Operative Note Date of Service: 03/05/24 Pre-op diagnosis: Screening Post-op diagnosis: other (Polyp) Procedure: Colonoscopy to the cecum with hot snare polypectomy x 1 Surgeon: Gurvinder Guerrero MD Anesthesia: MAC Was an Wallpaper Inspector used for this Procedure?: No Estimated blood loss (mL): 0 Pathology: other (A. Ascending colon polyp) Condition: stable Disposition: PACU
[2024-03-05 11:01] VITALS: BP 131/76; PULSE 47; RESP 17; TEMP 36.1; O2SAT 100
--- NOTE | 2024-03-05 11:11 | OP_ITS ---
DATE OF SERVICE: 03/05/2024 SURGEON: Gurvinder Guerrero MD INDICATIONS: The patient presents for evaluation of colorectal cancer screening and a prior history of a tubular adenoma. Full consent was obtained from him for this, including risks of bleeding and perforation. PREOPERATIVE DIAGNOSIS: POSTOPERATIVE DIAGNOSIS: PROCEDURE PERFORMED: Colonoscopy to the cecum with hot snare polypectomy. ESTIMATED BLOOD LOSS: COMPLICATIONS: ANESTHESIA: Monitored anesthesia care. ASSISTANTS: SPECIMENS: PREOP DIAGNOSES: Colorectal cancer screening and prior history of a tubular adenoma of the colon. POSTOP DIAGNOSES: Colorectal cancer screening and prior history of a tubular adenoma of the colon, colon polyp, diverticulosis, and internal hemorrhoids. DESCRIPTION OF PROCEDURE: The patient was placed in the left lateral decubitus position. The digital rectal exam revealed no abnormalities. The Olympus video pediatric colonoscope was entered into the rectum and advanced easily to the cecum. Once in the cecum, I did identify normal-appearing cecal pouch with appendiceal orifice and a normal-appearing ileocecal valve. There was transillumination of light deep in the right lower quadrant. The entire cecum and ileocecal valve appeared normal. The scope was slowly withdrawn assessing all mucosal surfaces carefully. Preparation was excellent. In the ascending colon was a flat, but raised approximately 12 mm polyp, which was removed in piecemeal fashion by hot snare polypectomy with all pieces recovered by suction. The polypectomy site appeared clean, without any sign of residual polyp nor bleeding. I did not visualize any other polyps, colitis, or angiodysplasia. There was a mild amount of sigmoid diverticulosis. In the rectum, scope was retroflexed visualizing internal hemorrhoids, but no other pathology. The rectal mucosa appeared normal. The scope was straightened and withdrawn from the patient. He tolerated the procedure well and was returned to recovery area in stable condition. IMPRESSION: 1. Colon polyp. 2. Diverticulosis. 3. Internal hemorrhoids. PLAN: The results of the pathology will be checked. If this is only hyperplastic tissue, then I do not think we need any further screening colonoscopies in the future. If it is adenomatous or serrated tissue, I would then recommend a repeat colonoscopy in 3 years. He was advised not to use any aspirin or NSAIDs for 1 week. Gurvinder Guerrero MD RMW/MODL / [id number]
== END 2024-03-05 11:34 | disposition home or self-care (01) ==
PROVIDERS: PCP Internal Medicine; Visit Provider Internal Medicine
PROC: 0DJD8ZZ Inspection of Lower Intestinal Tract, Via Natural or Artificial Opening Endoscopic (ICD-10-PCS; CPT 45378; principal; 2024-03-05 09:30)
DX: Z12.11 Encounter for screening for malignant neoplasm of colon (principal); Z86.0101 Personal history of adenomatous and serrated colon polyps; D12.2 Benign neoplasm of ascending colon; K57.30 Diverticulosis of large intestine without perforation or abscess without bleeding; K64.8 Other hemorrhoids; Z79.899 Other long term (current) drug therapy; Z98.890 Other specified postprocedural states
CPT/HCPCS: 45385; 88305; J2003; J2704; J3010

== ENCOUNTER 2024-05-11 09:56 | Outpatient (AMB) | payer MEDICARE, SELFPAY ==
[2024-05-11 09:59] VITALS: BP 132/80; PULSE 56; BMI 22.1
--- NOTE | 2024-05-11 09:59 | MHC.OFFVIS ---
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 He is a 72-year-old male who runs regularly 8-10 miles 3 times a week. Said he does not have any symptoms when he does that. While prepping for colonoscopy he was NPO and not drinking water he went for a run for about 8 miles. Came back home and he had drank 3 or 4 cups of coffee and started doing his colonoscopy prep. 4 hours after starting the colonoscopy prep he got up to go to the bathroom and passed out. Came to the emergency room and felt that this was probably orthostatic in nature. He subsequently is following more rigid hydration scheduled. He still drinks about 3-4 cups of coffee every day. He has not had any symptoms of lightheadedness or syncope. He denies any palpitations. Denies any exertional chest pain or shortness of breath. He says he enjoys his coffee a lot. He subsequently underwent echocardiogram which showed normal LV ejection fraction with mild calcific changes of the aortic valve. He has never had any prior cardiac issues. He was noted today to have significantly elevated blood pressure but says that he was very fragile today coming to the visit and was getting late and was not sure of the directions. However noted in his chart that he has had elevated blood pressure readings at other times as well. He does not take any medications for the same. [facility] Medical History Syncope Osteoarthritis Insomnia Lyme arthritis of knee Pure hypercholesterolemia Leukopenia Hypermobility arthralgia Benign prostatic hyperplasia without lower urinary tract symptoms Surgical History History of hernia surgery Hx of colonoscopy (~05/2013) Family History Mother No problems noted. Father No problems noted. Social History Household Members: Spouse Housing: House Alcohol intake: current Alcohol intake frequency: a few times a week Alcohol type: beer Patient Tobacco Use Status: Former Tobacco user e-Cigarette/Vaping Use: Never Used Second Hand Smoke Exposure: Yes service: No Current occupational status: retired Cognitive needs: No Hearing needs: No Vision needs: Yes Review of Systems Const Denies weakness ENT Denies dizziness Card Denies chest pain, Denies chest pain with activity, Denies syncope, Denies rapid heart rate, Denies pedal edema, Denies edema, Denies leg edema, Denies lightheadedness, Denies palpitations, Denies dyspnea, Denies dyspnea on exertion and Denies orthopnea Resp Denies cough, Denies dyspnea and Denies dyspnea on exertion GI Denies hematochezia and Denies change in stool character Musc Denies abnormal gait, Denies muscle cramps, Denies muscle weakness, Denies numbness, Denies radiating pain into limb and Denies tingling Neuro Denies abnormal gait, Denies dizziness, Denies syncope, Denies numbness, Denies tingling and Denies weakness Endo Denies palpitations Physical Exam Vital Signs: Last Vital Signs Pulse 63 05/11/24 10:19 BP 174/95 H 05/11/24 10:19 BMI result Body Mass Index 22.1 Const General: cooperative, comfortable, no acute distress, well developed, alert, awake and Physically active Nutritional Appearance: average body habitus and well nourished Orientation/consciousness: patient oriented x3 Limitations: no limitations HEENT Head: Yes normocephalic and Yes atraumatic Neck Neck: Yes trachea midline, Yes supple and Yes no JVD Carotids: no bruits Resp Effort & Inspection: normal respiratory effort Auscultation: clear to auscultation bilaterally GI Auscultation: normal bowel sounds Skin General skin exam: no rashes or lesions noted Neuro General: patient oriented x3 and no focal motor deficits Extrem General: Yes no clubbing, cyanosis or edema Psych Appearance: grossly normal Office Procedures EKG Details: EKG shows normal sinus rhythm at 61 beats per minute with sinus arrhythmia with rightward axis 57485-Lcalgzjijkwvveemf, Complete Assessment & Plan Assessment & Plan (1) Syncope: Code(s): R55 - Syncope and collapse Plan: Syncope in this elderly gentleman appears to be orthostatic in nature related to hypovolemia. He ran for 8 miles and had not have any much fluid intake and that had caffeine intake and subsequently had colonoscopy prep which most likely made him all very dehydrated with intravascular volume depletion and then he had syncope after he got up suddenly which is all suggestive of orthostatic syncope. He has not had any recurrent episodes since he has been watching his oral fluid intake. Recommend him to aggressively hydrate himself. Orthostatic precautions were discussed. Advised to monitor blood pressure at home maintain a log. Will suggest a treadmill stress test given his age and his extensive running to make sure that he does have any asymptomatic myocardial ischemia. (2) HTN (hypertension): Code(s): I10 - Essential (primary) hypertension Category: Medical Plan: Hypertension with significantly elevated blood pressure question situational although there has been recorded elevated blood pressures at other times as well. There was no recorded low blood pressures at home. I have taken the liberty to start him on amlodipine 2.5 mg daily. Gradual reduction in caffeine intake. Advised to avoid salt intake. Stress mitigation strategies were discussed. Advised to maintain adequate hydration. I have advised him to monitor blood pressure at home maintain a log. Will follow up in the clinic in 4 weeks time for blood pressure check as well as follow-up of stress test. Thank you for allowing me to partake in his care Orders: Orders CA stress test Today R55 - Syncope and collapse Medications: New aspirin (Ecotrin Low Strength) 81 mg PO DAILY 30 tabs 5RF amlodipine 2.5 mg PO DAILY 30 tabs 4RF Coding Level of Care Code New Pt Level 4 (91129) Complex EM visit Add On G2211 Diagnoses Syncope R55 HTN (hypertension) I10 CPT Codes EKG - CPT: 85478-Yjohqhwsqbsbjiqca, Complete ([id number])
[2024-05-11 10:16] VITALS: BP 173/92; PULSE 56
[2024-05-11 10:17] VITALS: BP 178/101; PULSE 61
[2024-05-11 10:19] VITALS: BP 174/95; PULSE 63
--- OUTSIDE RECORDS SUMMARY | 2024-05-11 10:39 | XMS_ITS ---
Author Organization [facility] Address [address] [place] [address] Care Team Providers Care Secretarial Stenographer Name Role Phone Jasvir SOLANO, [place] Primary Care Provider Unava Gurvinder Quigley Unavailable [phone] Encounters Encounter Location Date Provider Diagnosis [facility] [address] [place] [address] 11/22/2023 Gurvinder Guerrero PLAN OF TREATMENT No Information
--- OUTSIDE RECORDS SUMMARY | 2024-05-11 10:39 | XMS_ITS | Patient Health Record ---
Author Organization [facility] Address [address] [place] [address] Care Team Providers Care It Infrastructure Project Manager Name Role Phone Jasvir SOLANO, [place] Primary Care Provider Gurvinder Ross Unavailable [phone] ALLERGIES No Known Allergies RESULTS Component Value Reference Range Notes Pathology Reviewed date:03/13/2024 09:14:28 AM Interpretation: Performing Lab:[facility], [address] [place] [phone] Notes/Report: REASON FOR REFERRAL Referring Provider First Name Brian Referring Provider Last Name Jasvir Referring Provider Speciality Internal M edicine Referred Organization [facility] Referred Provider Gurvinder Guerrero Referred Address [address],[place], [place],[address], Referred Provider Specialty Gastroentero logy General Notes Pao Henry 024 09:48:16 AM EDT > requested an [facility] referral from Dr. Tay's office for visit with Dr. Guerrero on [phone] Referral Priority Routine MEDICATIONS Medication SIG (Take, Route, Fr equency, Duration) Notes Start Date End Date Status Ambien 5 MG 1 tablet at bedtime as needed Orally Once a day Active Aspirin Adult Elaine-Brady zhao SOCIAL HISTORY Sex Assigned At : Social History Observation Description Sex Assigned At Unknown PROBLEMS Problem Type ICD Code Onset Dates Problem Status W/U Status Risk SNOMED Code Notes Problem Colon cancer screening (Z12.11) Active confirmed Colon can cer screening (947719066) Problem Personal history of colonic polyps (Z86.010) Active confirmed History of polyp of colon (situation) (236234590) Problem Encounter for other preprocedural examination (Z01.818) Active confirmed Pre-procedure evaluation check (826683803) Problem Diverticulosis of large intestine without perforation or abscess without bleeding (K57.30) Active confirmed Diverticul ar disease of colon (262868101) VITAL SIGNS Blood pressure diastolic 00 mm Hg 08/09/2023 Height 67 in 08/09/2023 Blood pressure systolic 00 mm Hg 08/09/2023 Weight 151 lbs 08/09/2023 BMI 23.65 kg/m2 08/09/2023 Encounters Encounter Location Date Provider Diagnosis [facility] [place] [address] [place] [id number] 11/18/2023 Gurvinder Guerrero [facility] [place] [address] [place] [phone] 03/05/2024 Gurvinder Guerrero Colon cancer screeni ng Z12.11 ; Colon polyps K63.5 ; Diverticulosis of large intestine without perforation or abscess without bleeding K57.30 and Other hemorrhoids K64.8 [facility] [address] [place] [phone] 08/09/2023 Gurvinder Guerrero Colon cancer screeni ng Z12.11 ; Encounter for other preprocedural examination Z01.818 and Personal history of colonic polyps Z86.010 [facility] [address] [place] [phone] 11/22/2023 Gurvinder Guerrero ASSESSMENTS Encounter Date Diagnosis Assessment Notes Treatment Notes Treatment Clinical Notes 03/05/2024 Colon cancer screening (ICD-10 - Z12.11) 03/05/2024 Colon polyps (ICD-10 - K63.5) 08/09/2023 Colon cancer screening (ICD-10 - Z12.11) 08/09/2023 Encounter for other preprocedural examination (ICD-10 - Z01.818) 03/05/2024 Diverticulosis of large intestine without perforation or abscess without bleeding (ICD-10 - K57.30) 08/09/2023 Personal history of colonic polyps (ICD-10 - Z86.010) 03/05/2024 Other hemorrhoids (ICD-10 - K64.8) PLAN OF TREATMENT Future Test Test Name Order Date COLONOSCOPY 02/27/2013 COLONOSCOPY 08/09/2023 Insurance Providers Payer Name Payer Address Payer Phone Subscriber Number Group Number Insured Name Patient Relationship to Insured Coverage Start Date Coverage End Date [facility] [employer] [address] [place] [address] [phone] [id number] TONYCONOR Self - patient is the insured MEDICAL (GENERAL) HISTORY Medical History History ICD Code Tubular adenoma removed in 09/2002--had a neg. colonoscopy in 2007 Denies [place],DM,CVA,Lung disease,renal dise ase Negative colonoscopy in 05/2013 Surgical History Surgery Date(Month/Year) Hernia surgery x 2
--- OUTSIDE RECORDS SUMMARY | 2024-05-11 10:39 | XMS_ITS ---
Author Organization [facility] Address [address] [place] [address] Care Team Providers Care Shearer Helper Name Role Phone Jasvir SOLANO, [place] Primary Care Provider Unava ilable Gurvinder Guerrero Unavailable [phone] REASON FOR VISIT screening,hx polyps Encounters Encounter Location Date Provider Diagnosis [facility] [place] Out[place] [address] [place], [place] [phone] 11/18/2023 Gurvinder Guerrero PLAN OF TREATMENT No Information
--- OUTSIDE RECORDS SUMMARY | 2024-05-11 10:39 | XMS_ITS ---
Author Organization [facility] Address [address] [place] [address] Care Team Providers Care Public Transit Trolley Driver Name Role Phone Jasvir SOLANO, [place] Primary Care Provider UnaGurvinder Carreon Unavailable [phone] REASON FOR VISIT screening,hx polyps PROBLEMS Problem Type ICD Code Onset Dates Problem Status W/U Status Risk SNOMED Code Notes Problem Diverticulosis of large intestine without perforation or abscess without bleeding (K57.30) Active confirmed Diverticul ar disease of colon (153280483) Encounters Encounter Location Date Provider Diagnosis [facility] [place] Out[place] [address], [place] [phone] 03/05/2024 Gurvinder Guerrero Colon cancer scree bang Z12.11 ; Colon polyps K63.5 ; Diverticulosis of large intestine without perforation or abscess without bleeding K57.30 and Other hemorrhoids K64.8 ASSESSMENTS Encounter Date Diagnosis Assessment Notes Treatment Notes Treatment Clinical Notes 03/05/2024 Colon cancer screening (ICD-10 - Z12.11) 03/05/2024 Colon polyps (ICD-10 - K63.5) 03/05/2024 Diverticulosis of large intestine without perforation or abscess without bleeding (ICD-10 - K57.30) 03/05/2024 Other hemorrhoids (ICD-10 - K64.8) PLAN OF TREATMENT No Information
== END 2024-05-11 10:43 | disposition home or self-care (01) ==
PROVIDERS: PCP Internal Medicine; Visit Provider Internal Medicine Cardiovascular Disease
DX: R55 Syncope and collapse (principal); I10 Essential (primary) hypertension
CPT/HCPCS: 93010; 99214

== ENCOUNTER → 2024-05-11 09:56 | Outpatient (BNVA) | payer MEDICARE, SELFPAY | PROVIDERS: PCP Internal Medicine; Visit Provider Internal Medicine Cardiovascular Disease | DX: I10 Essential (primary) hypertension (principal); R55 Syncope and collapse | CPT/HCPCS: 93005; 99212 ==

== ENCOUNTER → 2024-06-01 09:12 | Outpatient (REF) | payer MEDICARE, SELFPAY ==
--- NOTE | 2024-06-01 09:14 | CA_ITS ---
Acquisition Time: 2024-06-01 09:21:15 Total Exercise Time: 00:07:36 Test Indications: Syncope Medications: see h&p Protocol: CONOR Max HR: 130 BPM 88% of Pred: 147 BPM Max BP: 202/100 mmHG Max Work Load: 9.4 METS Exercise stress test with exercise 7 min 36 sec of Conor protocol achieving 98% MPHR, without anginal symptoms, with request to stop stating he did not have breakfast and did not want to push himself too hard, with isolated PAC and rare PVC, with hypertensive response to exercise with max BP 202/100, without EKG changes meeting criteria for ischemia during exercise. Baseline EKG shows nonspecific ST findings: slight ST depression inferiorly and scooping ST V5-V6. in late recovery there are similar ST depressions with a downsloping appearance to ST in leads III, aVF and V6 - asymptomatic and of unclear significance. BP returned to near baseline, 138/90. Test reviewed with Dr Dye. Referred By: Greg Man Electronically Signed By: MAGNOLIA BURGESS
--- OUTSIDE RECORDS SUMMARY | 2024-06-01 09:47 | XMS_ITS ---
Author Organization [facility] Address [address] [place] [address] Care Team Providers Care Hospitality Specialist Name Role Phone Jasvir SOLANO, [place] Primary Care Provider Unava ilable Gurvinder Guerrero Unavailable [phone] REASON FOR VISIT screening,hx polyps Encounters Encounter Location Date Provider Diagnosis [facility] [place] [address] [place], [place] [phone] 11/18/2023 Gurvinder Guerrero PLAN OF TREATMENT No Information
--- OUTSIDE RECORDS SUMMARY | 2024-06-01 09:47 | XMS_ITS ---
Author Organization [facility] Address [address] [place] [address] Care Team Providers Care Livestock Farmer Name Role Phone Jasvir SOLANO, [place] Primary Care Provider UnaGurvinder Carreon Unavailable [phone] REASON FOR VISIT screening,hx polyps PROBLEMS Problem Type ICD Code Onset Dates Problem Status W/U Status Risk SNOMED Code Notes Problem Diverticulosis of large intestine without perforation or abscess without bleeding (K57.30) Active confirmed Diverticul ar disease of colon (444439720) Encounters Encounter Location Date Provider Diagnosis [facility] [place] Out[place] [address] [place], [place] [phone] 03/05/2024 Gurvinder Guerrero Colon cancer scree bang [...]
--- OUTSIDE RECORDS SUMMARY | 2024-06-01 09:48 | XMS_ITS | Patient Health Record ---
Author Organization [facility] Address [address] [place] [address] Care Team Providers Care Hydrotel Operator Name Role Phone Jasvir SOLANO, Brian Primary Care Provider Gurvinder Ross Unavailable [phone] ALLERGIES No Known Allergies RESULTS Component Value Reference Range Notes Pathology Reviewed date:03/13/2024 09:14:28 AM Interpretation: Performing Lab:[facility], [address] [place] [phone] Notes/Report: REASON FOR REFERRAL Referring Provider First Name Brian Referring Provider Last Name Jasvir Referring Provider Speciality Internal M edicine Referred Organization [facility] Referred Provider Gurvinder Guerrero Referred Address [address],[place], [place],[address], Referred Provider Specialty Gastroentero logy General Notes Pao Henry 024 09:48:16 AM EDT > requested an [facility] referral from Dr. Tay's office for visit with Dr. Guerrero on [phone] Referral Priority Routine MEDICATIONS Medication SIG (Take, [...] (Z12.11) Active confirmed Colon can cer screening (823356515) Problem Personal history of colonic polyps (Z86.010) Active confirmed History of polyp of colon (situation) (365700109) Problem Encounter for other preprocedural examination (Z01.818) Active confirmed Pre-procedure evaluation check (528827991) Problem Diverticulosis of large intestine without perforation or abscess without bleeding (K57.30) Active confirmed Diverticul ar disease of colon (836061047) VITAL SIGNS Blood pressure diastolic 00 mm Hg 08/09/2023 Height 67 in 08/09/2023 Blood pressure systolic 00 mm Hg 08/09/2023 Weight 151 lbs 08/09/2023 BMI 23.65 kg/m2 08/09/2023 Encounters Encounter Location Date Provider Diagnosis [facility] Outpatient [address] [place] [id number] 11/18/2023 Gurvinder Guerrero [facility] Outpatient [address] [place] [id number] 03/05/2024 Gurvinder Guerrero Colon cancer screeni ng Z12.11 ; Colon polyps K63.5 ; Diverticulosis of large intestine without perforation or abscess without bleeding K57.30 and Other hemorrhoids K64.8 [facility] [address] [place] [phone] 08/09/2023 Gurvinder Guerrero Colon cancer screeni ng Z12.11 ; Encounter for other preprocedural examination Z01.818 and Personal history of colonic polyps Z86.010 [facility] [address] [facility] [address] [place] [phone] 11/22/2023 Gurvinder Guerrero ASSESSMENTS Encounter Date Diagnosis [...] Insured Coverage Start Date Coverage End Date [facility] PROFESSIONAL CLAIMS [address] [place] [address] [id number] TONYCONOR Self - patient is the insured MEDICAL (GENERAL) HISTORY Medical History History ICD Code Tubular adenoma removed in 09/2002--had a neg. colonoscopy in 2007 Denies [place],DM,CVA,Lung disease,renal dise ase Negative colonoscopy in 05/2013 Surgical History Surgery Date(Month/Year) Hernia surgery x 2
--- OUTSIDE RECORDS SUMMARY | 2024-06-01 09:48 | XMS_ITS ---
Author Organization [facility] Address [address] [place] [address] Care Team Providers Care Open Developer Operator Name Role Phone Jasvir SOLANO, [place] Primary Care Provider Unava ilGurvinder Tinajero Unavailable [phone] Encounters Encounter Location Date Provider Diagnosis [facility] [address] [place] [address] 11/22/2023 Gurvinder Guerrero PLAN OF TREATMENT No Information
== END ==
LOC: HO.CARD 09:12
PROVIDERS: PCP Internal Medicine; Visit Provider Internal Medicine Cardiovascular Disease
DX: R55 Syncope and collapse (principal)
CPT/HCPCS: 93017

== ENCOUNTER → 2024-06-01 09:14 | Outpatient (BNV) | payer MEDICARE, SELFPAY | PROVIDERS: PCP Internal Medicine; Visit Provider Nurse Practitioner Family | DX: I49.1 Atrial premature depolarization (principal); I49.3 Ventricular premature depolarization | CPT/HCPCS: 93016; 93018 ==

== ENCOUNTER 2024-06-08 12:46 | Outpatient (AMB) | payer MEDICARE, SELFPAY ==
[2024-06-08 13:01] VITALS: BP 130/68; PULSE 70; BMI 22.1
--- NOTE | 2024-06-08 13:01 | MHC.OFFVIS ---
Vital Signs 06/08/24 13:01 Height 5 ft 10 in Weight 154 lb 5.177 oz BMI 22.1 BP 130/68 Blood Pressure Location Lt brachial Position Sitting Pulse 70 Pulse Source Pulse Oximeter Intake Visit Reasons: 4 wk follow up/BP/ ETT Allergies No Known Allergies Allergy (Verified 01/11/24 09:36) Medication List - Last Reconciled 06/08/24 by Mukul Randle NP amlodipine 2.5 mg PO DAILY aspirin (Ecotrin Low Strength) 81 mg PO DAILY diclofenac sodium 1% (Voltaren Arthritis Pain) 4 grams topical QID PRN 30 days finasteride 5 mg PO DAILY 90 days meloxicam 15 mg PO DAILY zolpidem 10 mg PO BEDTIME PRN HPI Comments Details: This is a 73-year-old male patient coming in for a follow-up visit. Patient with a history of hypertension and hyperlipidemia who was previously seen for consult regarding syncopal episode during his colonoscopy prep. The syncopal a event occurred after the patient had not eaten for 24 hours, had no fluid intake, and consumed a significant amount of coffee after returning from a long run. Subsequently he started his colonoscopy prep and experienced a syncopal episode. Since then, the patient reports no further episodes of syncope. To further evaluate, patient underwent a treadmill stress test. Today, the patient reports feeling well overall and denies any cardiac symptoms including exertional chest pain, shortness of breath, palpitations, dizziness, fatigue, orthopnea, PND, leg edema, presyncope, or syncope. The patient remains very active, regularly running including marathons, and states that he is trying his best to adhere to a healthy diet. Patient reports reducing his alcohol consumption to just 1 beer a week. [facility] Medical History Syncope Osteoarthritis Insomnia Lyme arthritis of knee Pure hypercholesterolemia Leukopenia Hypermobility arthralgia Benign prostatic hyperplasia without lower urinary tract symptoms Surgical History History of hernia surgery Hx of colonoscopy (~05/2013) Family History Mother No problems noted. Father No problems noted. Social History Household Members: Spouse Housing: House Alcohol intake: current Alcohol intake frequency: a few times a week Alcohol type: beer Patient Tobacco Use Status: Former Tobacco user e-Cigarette/Vaping Use: Never Used Second Hand Smoke Exposure: Yes service: No Current occupational status: retired Cognitive needs: No Hearing needs: No Vision needs: Yes Review of Systems Const Denies weakness ENT Denies dizziness Card Denies chest pain, Denies chest pain with activity, Denies syncope, Denies rapid heart rate, Denies pedal edema, Denies edema, Denies leg edema, Denies lightheadedness, Denies palpitations, Denies dyspnea, Denies dyspnea on exertion and Denies orthopnea Resp Denies cough, Denies dyspnea and Denies dyspnea on exertion GI Denies hematochezia and Denies change in stool character Musc Denies abnormal gait, Denies muscle cramps, Denies muscle weakness, Denies numbness, Denies radiating pain into limb and Denies tingling Neuro Denies abnormal gait, Denies dizziness, Denies syncope, Denies numbness, Denies tingling and Denies weakness Endo Denies palpitations Physical Exam Vital Signs: Last Vital Signs Pulse 70 06/08/24 13:01 BP 130/68 06/08/24 13:01 BMI result Body Mass Index 22.1 Const General: cooperative, healthy appearing, comfortable and no acute distress Orientation/consciousness: patient oriented x3 HEENT Head: Yes normal to inspection Neck Neck: Yes normal visual inspection, Yes trachea midline and Yes supple Chest Chest palpation & inspection: normal inspection of the chest Resp Effort & Inspection: normal respiratory effort Auscultation: clear to auscultation bilaterally, no crackles, no rales, no rhonchi and no wheezes Cardio Jugular venous distension: no JVD Palpation: normal PMI Rate: regular rate Rhythm: regular rhythm Heart sounds: S1 normal heart sound present, S2 normal heart sound present, no click, no gallops, no murmurs and no rubs Peripheral pulses: Peripheral pulses 2+ throughout GI Inspection: Yes normal to inspection Palpation (GI): Soft to palpation Auscultation: normal bowel sounds Skin General skin exam: no rashes or lesions noted Neuro General: patient oriented x3 Extrem General: Yes normal to inspection, No no pedal edema and No calf tenderness Psych Appearance: grossly normal Mental Status: mental status grossly normal Speech and movement: Normal speech and movement present Assessment & Plan Assessment & Plan (1) Hyperlipidemia: Code(s): E78.5 - Hyperlipidemia, unspecified Category: Medical Qualifiers: Hyperlipidemia type: pure hypercholesterolemia Qualified Code(s): E78.00 - Pure hypercholesterolemia, unspecified Plan: 02/09/2024-echo study showed a normal EF 55-60% with impaired relaxation filling pattern, and calcific changes noted in the aortic valve. 05/12/2024-patient underwent treadmill stress test with exercise of 7-1/2 minutes achieving 98% MPHR. Patient had no anginal symptoms but had hypertensive response with exercise, with no EKG changes meeting criteria for ischemia. Patient has had history of elevated cholesterol levels for the past he couple of years and reports ongoing efforts to manage his cholesterol level through diet and exercise. Despite these efforts, his levels remain high, with the most recent LDL being 136, which is not at goal of LDL less than 100. Patient is in agreement to start low-dose atorvastatin. We will repeat labs in 3 months. Continue aspirin therapy. No reported signs of bleeding. (2) HTN (hypertension): Code(s): I10 - Essential (primary) hypertension Category: Medical Qualifiers: Hypertension type: primary hypertension Qualified Code(s): I10 - Essential (primary) hypertension Plan: Previous isolated syncopal episode probably related to orthostatic due to hypovolemia. Blood pressure today is well-controlled. Continue amlodipine low dose. Advised to continue monitoring blood pressures at home. Ideally blood pressure less than 130/80. Advised heart healthy diet, regular exercise, aggressive management of vascular risk factors. Follow-up in a year, sooner if needed. In the interim, patient will call the office with any concerns or change in symptoms. This note was generated using voice recognition software. While every effort has been made to ensure accuracy and proper automobile damage appraiser, there may be occasional errors that could affect the content or meaning of the described symptoms. Orders: Orders Lipid Panel 3 Months E78.5 - Hyperlipidemia, unspecified Medications: New atorvastatin 10 mg PO DAILY 90 tabs 1RF Coding Level of Care Code Est Pt Level 4 (93834) Complex EM visit Add On G2211 Diagnoses Pure hypercholesterolemia E78.00 Hyperlipidemia type: pure hypercholesterolemia Primary hypertension I10 Hypertension type: primary hypertension Time Spent (min) 32 Comment Time spent in reviewing the chart, test results, assessment, counseling and documentation.
--- OUTSIDE RECORDS SUMMARY | 2024-06-08 14:20 | XMS_ITS | Patient Health Record ---
Author Organization [facility] Address [address] [place] [address] Care Team Providers Care Dietitian Helper Name Role Phone Jasvir SOLANO, [place] Primary Care Provider Gurvinder Ross Unavailable [phone] Allergies No Known Allergies Results Component Value Reference Range Notes Pathology Reviewed date:03/13/2024 09:14:28 AM Interpretation: Performing Lab:[facility], [address] [place] [phone] Notes/Report: Name: Varinder Sanchez Age /Sex: 73/M : 1950 Unit#: [id number] Attend Dr: Gurvinder Guerrero MD Re03/05/24 Status : [facility] Location: [facility] Disch: SPEC : [id number] REC STATUS: BESSIE RAO NUM: [id number] SHEELA: 03/05/24-[address] [facility] [address]: Gurvinder Guerrero MD ENTERED: 03/05/24-10 55 SP TYPE: Surgical OTHR DR: Brian Tay MD ORDERED: Gross Micro L4 Addendum Addendum 1 Entered: 03/09/24-1037 Additional tissue le vels examined; no change in diagnosis. Addendum Signed ____ __(signature on file) Samanta [place] 03/09/24 1038 Diagnosis Colon, ascending, po lyp: Consistent with sessile serrated lesion without dysplasia (see comment). Comment: Additional levels pending; addendum to follow. Clinical History Pre-Op Dx: History c olonic polyps, screening Post-Op Dx: Polyp, h emorrhoids, diverticulosis Microscopic Description Microscopic sections reviewed. Material Received Ascending colon polyp Gross Description Received in formalin labeled ?ascending colon polyp? are multiple minute to 0.3 cm focally congested and hemorr hagic, yancey and red-maroon irregular, rectangular and papular tissue fragments, submitted in toto in a cassette labeled A. CEDS CONTINUED ON NEXT PAGE Name: Varinder Sanchez Age /Sex: 73/M : 1950 Unit#: [id number] Attend Dr: Gurvinder Guerrero MD Re03/05/24 Status : [facility] Location: [place] Disch: SPEC : [id number] RECD : 03/05/24 STATUS: BESSIE RAO NUM: [id number] SHEELA: 03/05/24-[address] [facility] [address]: Gurvinder Guerrero MD ENTERED: 03/05/24 SP TYPE: Surgical OTHR DR: Brian Tay MD ORDERED: Gross Micro L4 Copies To: Brian Tay MD [facility] Primary Care,[address] [place] [address] Gurvinder Guerrero MD [facility] [address] [place] [address] Signed (si gnature on file) Samanta Yoko 03/06/24 1505 END OF REPORT Reason For Referral Referring Provider First Name Brian Referring Provider Last Name Jasvir Referring Provider Speciality Internal M edicine Referred Organization [facility] Referred Provider Gurvinder Guerrero Referred Address [address] [place] [address],[place], [place],[address],[place] Referred Provider Specialty Gastroentero noah General Notes Pao Henry 024 09:48:16 AM EDT > requested [place] [facility] referral from Dr. Tay's office for visit with Dr. Guerrero on [phone] Referral Priority Routine Medications Medication SIG (Take, Route, Fr equency, Duration) Notes Start Date End Date Status Ambien 5 MG 1 tablet at bedtime as needed Orally Once a day Active Aspirin Adult Not-Ta cece Problems Problem Type SNOMED Code ICD Code Onset Dates Problem Status W/U Status Risk Notes Problem Colon cancer screening (676652928) Colon cancer screening (Z12.11) Active confirmed Problem History of polyp of colon (situation) (483352236) Personal history of colonic polyps (Z86.010) Active confirmed Problem Pre-procedure evaluation check (824543389) Encounter for other preprocedural examination (Z01.818) Active confirmed Problem Diverticular disease of colon (750626691) Diverticulosis of large intestine without perforation or abscess without bleeding (K57.30) Active confirmed Vital Signs Blood pressure diastolic 00 mm Hg 08/09/2023 Height 67 in 08/09/2023 Blood pressure systolic 00 mm Hg 08/09/2023 Weight 151 lbs 08/09/2023 BMI 23.65 kg/m2 08/09/2023 Encounters Encounter Location Date Provider Diagnosis [facility] Outpatient [address] [place], [place] [phone] 03/05/2024 Gurvinder Guerrero Colon cancer screeni ng Z12.11 ; Colon polyps K63.5 ; Diverticulosis of large intestine without perforation or abscess without bleeding K57.30 and Other hemorrhoids K64.8 [facility] [address] [place] [phone] 08/09/2023 Gurvinder Guerrero Colon cancer screeni ng Z12.11 ; Encounter for other preprocedural examination Z01.818 and Personal history of colonic polyps Z86.010 [facility] [address] [place] [address] 11/22/2023 Gurvinder Guerrero Assessments Encounter Date Diagnosis (ICD Code) Assessment Notes Treatment Notes Treatment Clinical Notes Section Notes 03/05/2024 Colon cancer screening (ICD-10 - Z12.11) 03/05/2024 Colon polyps (ICD-10 - K63.5) 08/09/2023 Colon cancer screening (ICD-10 - Z12.11) Overall, Varinder appears quite well. Given his age, excellent clinical appearance, and last colonoscopy over 10 years ago, I did recommend a followup colonoscopy for further screening purposes. He did review the rationale for this in regard to colon cancer prevention. Full consent was obtained from him for this, including risks of bleeding and perforation. The procedure will be done monitored anesthesia care. Varinder was comfortable with this plan. Thank you again for allowing me to participate in Varinder's care. I shall continue to keep you advised of his progress. 08/09/2023 Encounter for other preprocedural examination (ICD-10 - Z01.818) Overall, Varinder appears quite well. Given his age, excellent clinical appearance, and last colonoscopy over 10 years ago, I did recommend a followup colonoscopy for further screening purposes. He did review the rationale for this in regard to colon cancer prevention. Full consent was obtained from him for this, including risks of bleeding and perforation. The procedure will be done monitored anesthesia care. Varinder was comfortable with this plan. Thank you again for allowing me to participate in Varinder's care. I shall continue to keep you advised of his progress. 03/05/2024 Diverticulosis of large intestine without perforation or abscess without bleeding (ICD-10 - K57.30) 08/09/2023 Personal history of colonic polyps (ICD-10 - Z86.010) Overall, Varinder appears quite well. Given his age, excellent clinical appearance, and last colonoscopy over 10 years ago, I did recommend a followup colonoscopy for further screening purposes. He did review the rationale for this in regard to colon cancer prevention. Full consent was obtained from him for this, including risks of bleeding and perforation. The procedure will be done monitored anesthesia care. Varinder was comfortable with this plan. Thank you again for allowing me to participate in Varinder's care. I shall continue to keep you advised of his progress. 03/05/2024 Other hemorrhoids (ICD-10 - K64.8) Plan Of Treatment Future Test Test Name Order Date COLONOSCOPY 02/27/2013 COLONOSCOPY 08/09/2023 Insurance Providers Payer Name Payer Address Payer Phone Subscriber Number Group Number Insured Name Patient Relationship to Insured Coverage Start Date Coverage End Date [facility] PROFESSIONAL CLAIMS [address] [place] [address] [id number] VARINDER SANCHEZ Self - patient is the insured Medical (General) History Medical History History ICD Code Tubular adenoma removed in 09/2002--had a neg. colonoscopy in 2007 Denies [place],DM,CVA,Lung disease,renal dise ase Negative colonoscopy in 05/2013 Surgical History Surgery Date(Month/Year) Hernia surgery x 2
--- OUTSIDE RECORDS SUMMARY | 2024-06-08 14:20 | XMS_ITS ---
Author Organization [facility] Address [address] [place] [address] Care Team Providers Care Railcar Carpenter Name Role Phone Jasvir SOLANO, Brian Primary Care Provider UnaGurvinder Carreon [phone] REASON FOR VISIT screening,hx polyps Encounters Encounter Location Date Provider Diagnosis [facility] Outpatient [address] [place], [place] [phone] 11/18/2023 Gurvinder Guerrero Plan Of Treatment No Information Progress Notes * CONOR JIMENEZ WDOB:1950 (73 yo M)Acc No.[id number]:11/18/2023 COLON WITH MAC Patient:?CONOR JIMENEZ Provider:?Gurvinder Guerrero MD :1950???Age:73 Y???Sex:Male Jesus e:11/18/2023 Address:[address] [facility] Pcp:Brian Tay MD Subjective: * Chief Complaints: * ???1. Screening,hx polyps. * Medical History:? Objective: * Vitals:? Assessment: Plan: * Treatment: * * The named appointment provid er may or may not be the originator of this progress note, and it is not deemed complete until electronically signed by the appointment provider. Sign off status: Pending * Provider:?Gurvinder Guerrero MD Date:? 024 Generated for Printi ng/Faxing/eTransmitting on:?06/08/2024 02:19 PM EST
--- OUTSIDE RECORDS SUMMARY | 2024-06-08 14:20 | XMS_ITS ---
Author Organization [facility] Address [address] [place] [address] Care Team Providers Care Prison Psychiatrist Name Role Phone Jasvir SOLANO, [place] Primary Care Provider Unava Gurvinder Quigley [phone] Encounters Encounter Location Date Provider Diagnosis [facility] [address] [place] [address] 11/22/2023 Gurvindre Guerrero Plan Of Treatment No Information Progress Notes * CONOR JIMENEZ WDOB:1950 (73 yo M)Acc No.[id number]:11/22/2023 Patient:?CONOR JIMENEZ :1950???Age:73 Y???Sex:Male Address:[place] [address] * true * Date:? Generated for Que lara/Lula/eTransmitting on:?06/08/2024 02:19 PM EST
--- OUTSIDE RECORDS SUMMARY | 2024-06-08 14:20 | XMS_ITS ---
Author Organization [facility] Address [address] [place] [address] Care Team Providers Care Recreation Facilities Supervisor Name Role Phone Jasvir SOLANO, [place] Primary Care Provider Unava Gurvinder Quigley Unavailable [phone] REASON FOR VISIT screening,hx polyps Problems Problem Type SNOMED Code ICD Code Onset Dates Problem Status W/U Status Risk Notes Problem Diverticular disease of colon (933527499) Diverticulosis of large intestine without perforation or abscess without bleeding (K57.30) Active confirmed Encounters Encounter Location Date Provider Diagnosis [facility] Outpatient [address] [place], [place] [phone] 03/05/2024 Gurvinder Guerrero Colon cancer scree bang [...] * CONOR JIMENEZ WDOB:1950 (73 yo M)Acc No.[id number]:03/05/2024 COLON WITH MAC Patient:?CONOR JIMENEZ Provider:?Gurvinder Guerrero MD :1950???Age:73 Y???Sex:Male Jesus e:03/05/2024 Address:[address], [place] Pcp:Brian Tay MD Subjective: * Chief Complaints: * ???1. Screening,hx polyps. * Medical History:? Objective: * Vitals:? Assessment: * Assessment: 1.?Colon cancer screening - Z12.11 (Primary)???2.?Colon polyps - K63.5???3.?Diverticulosis of large intestine without perforation or abscess without bleeding - K57.30???4.?Other hemorrhoids - K64.8??? Plan: * Treatment: * Procedure Codes:?41438 LESIO N REMOVAL COLONOSCOPY, Modifiers: PT , 0529F INTRVL 3+YRS PTS CLNSCP DOCD, 0528F RCMND FLW-UP 10 YRS DOCD, Modifiers: 1P * * The named appointment provid er may or may not be the originator of this progress note, and it is not deemed complete until electronically signed by the appointment provider. Sign off status: Pending * Provider:?Gurvinder Guerrero MD Date:? 024 Generated for Que lara/Lula/Christiansmitting on:?06/08/2024 02:19 PM EST
== END 2024-06-08 13:24 | disposition home or self-care (01) ==
PROVIDERS: PCP Internal Medicine
DX: E78.00 Pure hypercholesterolemia, unspecified (principal); I10 Essential (primary) hypertension
CPT/HCPCS: 99214; G2211

== ENCOUNTER → 2024-06-08 12:46 | Outpatient (BNVA) | payer MEDICARE, SELFPAY | PROVIDERS: PCP Internal Medicine | DX: E78.00 Pure hypercholesterolemia, unspecified (principal); I10 Essential (primary) hypertension | CPT/HCPCS: 99212 ==

== ENCOUNTER 2024-07-05 09:56 | Outpatient (REF) | payer MEDICARE, SELFPAY ==
--- OUTSIDE RECORDS SUMMARY | 2024-07-05 10:39 | XMS_ITS | Patient Health Record ---
Author Organization [facility] Address [address] [place] [address] Care Team Providers Care Liquor Bridge Operator Name Role Phone Jasvir SOLANO, [place] Primary Care Provider Gurvinder Ross Unavailable [phone] Allergies No Known Allergies Results Component Value Reference Range Notes Pathology Reviewed date:03/13/2024 09:14:28 AM Interpretation: Performing Lab:[facility], [address] [place] [phone] Notes/Report: Name: Varinder Sanchez Age /Sex: 73/M : 1950 Unit#: [id number] Attend Dr: Gurvinder Guerrero MD Re03/05/24 Status : [facility] Location: [facility] Disch: SPEC : [id number] REC STATUS: BESSIE RAO NUM: [id number] SHEELA: 03/05/24-[address] [facility] [address]: Gurvinder Guerrero MD ENTERED: 03/05/24-10 55 SP TYPE: Surgical OTHR DR: Brian Tay MD ORDERED: Gross Micro L4 Addendum Addendum 1 Entered: 03/09/24-1037 Additional tissue le vels examined; no change in diagnosis. Addendum Signed ____ __(signature on file) Samanta Java 03/09/24 1038 Diagnosis Colon, ascending, po lyp: [...] Sanchez Age /Sex: 73/M : 1950 Unit#: [id number] Attend Dr: Gurvinder Guerrero MD Re03/05/24 Status : [place] [facility] [place] Location: [place] Disch: SPEC : [id number] RECD : 03/05/24 STATUS: BESSIE RAO NUM: [id number] SHEELA: 03/05/24-[address] [facility] [address]: Gurvinder Guerrero MD ENTERED: 03/05/24 SP TYPE: Surgical OTHR DR: Brian Tay MD ORDERED: Gross Micro L4 Copies To: Brian Tay MD [facility] Primary Care,[address] [place] [address] Gurvinder Guerrero MD [facility] [address] [place] [address] Signed (si gnature on file) Samanta Yoko 03/06/24 1505 END OF REPORT Reason For Referral Referring Provider First Name Brian Referring Provider Last Name Jasvir Referring Provider Speciality Internal M edicine Referred Organization [facility] Referred Provider Gurvinder Guerrero Referred Address [address] [place] [address],[place], [place],[address],[place] Referred Provider Specialty Gastroentero noah General Notes Pao Henry 024 09:48:16 AM EDT > requested an [facility] [place] [facility] referral from Dr. Tay's office for visit with Dr. Guerrero on [phone] Referral Priority Routine Medications Medication SIG (Take, Route, Fr equency, Duration) Notes Start Date End Date Status Ambien 5 MG 1 tablet at bedtime as needed Orally Once a day Active Aspirin Adult Not-Ta cece Problems Problem Type SNOMED Code ICD Code Onset Dates Problem Status W/U Status Risk Notes Problem Colon cancer screening (869919623) Colon cancer screening (Z12.11) Active confirmed Problem History of polyp of colon (situation) (629342073) Personal history of colonic polyps (Z86.010) Active confirmed Problem Pre-procedure evaluation check (782434541) Encounter for other preprocedural examination (Z01.818) Active confirmed Problem Diverticular disease of colon (141085429) Diverticulosis of large intestine without perforation or abscess without bleeding (K57.30) Active confirmed Vital Signs Blood pressure diastolic 00 mm Hg 08/09/2023 Height 67 in 08/09/2023 Blood pressure systolic 00 mm Hg 08/09/2023 Weight 151 lbs 08/09/2023 BMI 23.65 kg/m2 08/09/2023 Encounters Encounter Location Date Provider Diagnosis [facility] [place] [address] [place], [place] [phone] 03/05/2024 Gurvinder Guerrero Colon cancer screeni ng Z12.11 ; Colon polyps K63.5 ; Diverticulosis of large intestine without perforation or abscess without bleeding K57.30 and Other hemorrhoids K64.8 [facility] [address] [place] [address] 08/09/2023 Gurvinder Guerrero Colon cancer screeni ng Z12.11 ; Encounter for other preprocedural examination Z01.818 and Personal history of colonic polyps Z86.010 [facility] [address] [place] [address] 11/22/2023 Gurvinder Guerrero Assessments Encounter Date Diagnosis [...] Insured Coverage Start Date Coverage End Date [facility] PROF[employer]AL CLAIMS [address] [place] [address] [id number] 6 VARINDER SANCHEZ Self - patient is the insured Medical (General) History Medical History History ICD Code Tubular adenoma removed in 09/2002--had a neg. colonoscopy in 2007 Denies [place],DM,CVA,Lung disease,renal dise ase Negative colonoscopy in 05/2013 Surgical History Surgery Date(Month/Year) Hernia surgery x 2
--- OUTSIDE RECORDS SUMMARY | 2024-07-05 10:39 | XMS_ITS ---
Author Organization [facility] Address [address] [place] [address] Care Team Providers Care Market Risk Specialist Name Role Phone Jasvir SOLANO, [place] Primary Care Provider Unava Gurvinder Quigley Unavailable [phone] REASON FOR VISIT screening,hx polyps Problems Problem Type SNOMED Code ICD Code Onset Dates Problem Status W/U Status Risk Notes Problem Diverticular disease of colon (182503949) Diverticulosis of large intestine without perforation or abscess without bleeding (K57.30) Active confirmed Encounters Encounter Location Date Provider Diagnosis [facility] Outpatient [address] [place], [place] [phone] 03/05/2024 Gurvinder Guerrero Colon cancer scree bang [...] * CONOR JIMENEZ WDOB:1950 (73 yo M)Acc No.[id number]:03/05/2024 COLON WITH MAC Patient:?CONOR JIMENEZ Provider:?Gurvinder Guerrero MD :1950???Age:73 Y???Sex:Male Jesus e:03/05/2024 Address:[place], [place] Pcp:Brian Tay MD Subjective: * Chief Complaints: * ???1. Screening,hx polyps. * Medical History:? Objective: * Vitals:? Assessment: * Assessment: 1.?Colon cancer screening - Z12.11 (Primary)???2.?Colon polyps - K63.5???3.?Diverticulosis of large intestine without perforation or abscess without bleeding - K57.30???4.?Other hemorrhoids - K64.8??? Plan: * Treatment: * Procedure Codes:?73367 LESIO N REMOVAL COLONOSCOPY, Modifiers: PT , [...] Guerrero MD Date:? 024 Generated for Que lara/Lula/eTransmitting on:?07/05/2024 10:39 AM EDT
--- OUTSIDE RECORDS SUMMARY | 2024-07-05 10:39 | XMS_ITS ---
Author Organization [facility] Address [address] [place] [address] Care Team Providers Care Tools And Parts Attendant Name Role Phone Jasvir SOLANO, Brian Primary Care Provider UnaGurvinder Carreon [phone] REASON FOR VISIT screening,hx polyps Encounters Encounter Location Date Provider Diagnosis [facility] [place] [address] [place], [place] [phone] 11/18/2023 Gurvinder Guerrero Plan Of Treatment No Information Progress Notes * CONOR JIMENEZ WDOB:1950 (73 yo M)Acc No.[id number]:11/18/2023 COLON WITH MAC Patient:?CONOR JIMENEZ Provider:?Gurvinder Guerrero MD :1950???Age:73 Y???Sex:Male Jesus e:11/18/2023 Address:[address] [facility] Pcp:Brian Tay MD Subjective: * Chief Complaints: [...] MD Date:? 024 Generated for Printi ng/Faxing/eTransmitting on:?07/05/2024 10:39 AM EDT
--- OUTSIDE RECORDS SUMMARY | 2024-07-05 10:39 | XMS_ITS ---
Author Organization [facility] Address [address] [place] [address] Care Team Providers Care Manager Van Name Role Phone Jasvir SOLANO, [place] Primary Care Provider Unava Gurvinder Quigley [phone] Encounters Encounter Location Date Provider Diagnosis [facility] [address] [place] [address] 11/22/2023 Gurvinder Guerrero Plan Of Treatment No Information Progress Notes * CONOR JIMENEZ WDOB:1950 (73 yo M)Acc No.[id number]:11/22/2023 Patient:?CONOR JIMENEZ :1950???Age:73 Y???Sex:Male Address:[place] [address] * true * Date:? Generated for Que lara/Lula/eTransmitting on:?07/05/2024 10:39 AM EDT
[2024-07-05 11:42] LABS: Alanine Aminotransferase 38 U/L (0-40); Albumin Level 4.1 g/dL (3.5-5.0); Alkaline Phosphatase 106 U/L (39-117); Anion Gap 10 (12-20); Aspartate Amino Transferase 36 U/L (5-37); Bilirubin Total 0.4 mg/dL (0.0-1.0); Blood Urea Nitrogen 23 mg/dL (9-16); Calcium 9.2 mg/dL (8.4-10.2); Carbon Dioxide 27 mmol/L (22-29); Chloride 109 mmol/L (96-108); Cholesterol 165 mg/dL (<200); Estimated Glomerular Filt Rate > 60; Glucose Fasting 100 mg/dL (60-99); HDL Cholesterol 59 mg/dL (>40); LDL Cholesterol Calculated 95 mg/dL (<100); Potassium 4.3 mmol/L (3.3-5.1); Sodium 142 mmol/L (135-145); Total Protein 6.4 g/dL (6.5-8.0); Triglycerides 59 mg/dL (<150)
== END 2024-07-05 09:57 | disposition home or self-care (01) ==
LOC: HO.LAB 09:56
PROVIDERS: PCP Internal Medicine; Visit Provider Internal Medicine
DX: E78.00 Pure hypercholesterolemia, unspecified (principal)
CPT/HCPCS: 36415; 80053; 80061

== ENCOUNTER 2024-07-09 08:45 | Outpatient (AMB) | payer MEDICARE, SELFPAY ==
--- NOTE | 2024-07-09 08:58 | A.OFFVIS_ITS ---
Vital Signs 07/09/24 09:02 Height 5 ft 10 in Weight 158 lb 8.198 oz BMI 22.7 BP 140/80 H Blood Pressure Location Lt brachial Position Sitting Pulse 57 Pulse Source Pulse Oximeter Pulse Oximetry (%) 98 Oxygen Delivery Method Room Air Intake Visit Reasons: Knee pain/ inj Intake Note: Patient presents today for knee pain/injection. 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 At that time he reported chronic knee pain for the past year which inhibits his activity as an avid runner running 25 lb per week. He was given right knee cortisone injection and recommended topical diclofenac Patient states that the injections helped for 6-7 months. Requesting another injection today Rheumatologic History: Diagnosed with Lyme in 1994 - he states that there was 8 months between time of infection and treatment. Over the years he had a few episodes of bilateral knee swelling, joint pain and difficulty speaking. He states that when these episodes presented he was retreated with doxycycline for 3 months and the symptoms resolved. Current Rheumatology medications: Meloxicam 15mg prn Topical diclofenac 1% [facility] Medical History Syncope Osteoarthritis Insomnia Lyme arthritis of knee Pure hypercholesterolemia Leukopenia Hypermobility arthralgia Benign prostatic hyperplasia without lower urinary tract symptoms Surgical History History of hernia surgery Hx of colonoscopy (~05/2013) Family History Mother No problems noted. Father No problems noted. Social History Household Members: Spouse Housing: House Alcohol intake: current Alcohol intake frequency: a few times a week Alcohol type: beer Patient Tobacco Use Status: Former Tobacco user e-Cigarette/Vaping Use: Never Used Second Hand Smoke Exposure: Yes service: No Current occupational status: retired Cognitive needs: No Hearing needs: No Vision needs: Yes Review of Systems Const Details: Review of Systems Constitutional: Denies fever, chills, weight loss ENT: Denies vision changes, eye pain or eye redness, dental caries, dry mouth GI: Denies nausea, vomiting, diarrhea, abdominal pain, change in BM Pulm: Denies SOB, FELDER, hemoptysis, wheezing Cards: Denies chest pain, palpitations Skin: Denies Raynaud's, rash, nail changes, photosensitivity, EXERCISER HORSE: Denies headaches, weakness, paresthesias, recurrent falls MSK: as per HPI All other systems reviewed and are unremarkable except noted above Physical Exam Vital Signs: Last Vital Signs Pulse 57 07/09/24 09:02 BP 140/80 H 07/09/24 09:02 Pulse Ox 98 07/09/24 09:02 Oxygen Delivery Method Room Air 07/09/24 09:02 BMI result Body Mass Index 22.7 Vital signs reviewed Physical Examination CONSTITUITIONAL Patient alert and cooperative. Well appearing and in no apparent painful distress HEENT Conjunctiva and sclera clear. ?Pupils equal round and reactive to light. ?No lymphadenopathy. ? CHEST/RESPIRATORY SYSTEM Normal respiratory effort and able to speak in complete sentences. ?Clear to auscultation bilaterally. ?No crackles, rales, rhonchi, wheezes heard. CARDIAC SYSTEM Regular rate and rhythm. ?S1 and S2 heard no murmurs. ?Radial pulses intact bilaterally MSK Hands: ?Good orthopedic specialist strength bilaterally. No deformities noted. ?No synovitis noted to the MCPs, PIPs or DIPs. ?No tenderness to palpation of these joints. Heberden nodes Wrists: ?Full range of motion at the wrists without pain. ?No tenderness to palpation or synovitis noted to the wrists. Elbows: Full range of motion without pain. No tenderness, weakness, swelling, increased warmth or erythema. Shoulders: Full range of motion without pain. No tenderness, weakness, swelling, increased warmth or erythema. Hips: Full range of motion without pain. Hip bursa: No tenderness to palpation Knees: ?Full range of motion. ?No tenderness, swelling, increased warmth or erythema.? Faint crepitations felt Ankles: Full range of motion. ?No tenderness, swelling, increased warmth or erythema.? Feet: ?Negative squeeze test. ?No tenderness to palpation or swelling of the MTPs. Tender points:?No tenderness to palpation of the bilateral trapezius, supraspinatus, greater trochanters, anterior costochondral junctions, bilateral gluteal areas, bilateral suboccipital muscle insertions SKIN Skin intact without rashes. Office Procedures AMB Joint Injection/Aspiration Joint Injection/Aspiration Details: Procedure was explained to the patient and consent was obtained. ? The area of interest was identified and confirmed with patient. ?This was subsequently cleaned with chlorhexidine x3. ? The area was then anesthetized using ethyl chloride spray. 40 mg Kenalog with 1 cc 1% lidocaine was injected without issue. ?Minimal to no bleeding. ?Patient tolerated procedure. Primary Site: right knee Prep: site was prepped using aseptic technique and ethochloride spray was applied Injected: 40 mg of, Kenalog, with 1 mL of and 1% plain lidocaine Procedure: The patient tolerated the procedure well Coding 25089 - Large joint Procedure code (CPT) selection complete Office Meds lidocaine (PF) 10 mg/mL (1 %) injection solution Performing Provider: Deya Floyd MD Performing Location: [facility] Rheumatology Administered by: Deya Floyd MD on 07/09/24 09:41 Dose Route Admin Location Dispensed Lot Number Expiration Date [facility] Acoustical Tile Drill Press Operator 1 mL Infiltration Right knee 2 mL [id number] 07/03/26 95014-699-24 [facility] Kenalog 40 mg/mL suspension for injection Performing Provider: Deya Floyd MD Performing Location: [facility] Rheumatology Administered by: Deya Floyd MD on 07/09/24 09:41 Dose Route Admin Location Dispensed Lot Number Expiration Date [facility] Acoustical Tile Drill Press Operator 40 mg intra-articular right knee 1 mL [id number] 10/02/25 [address]-3 [employer] Results Reviewed Results Reviewed: XR bilateral knees 01/2024 FINDINGS: No fracture or joint effusion. Alignment is anatomic. Mild medial compartment joint space narrowing. No abnormal soft tissue calcification. IMPRESSION: Mild degenerative disease. Assessment & Plan Assessment & Plan (1) Osteoarthritis, knee: Code(s): M17.9 - Osteoarthritis of knee, unspecified Category: Medical Qualifiers: Osteoarthritis type: primary Laterality: bilateral Qualified Code(s): M17.0 - Bilateral primary osteoarthritis of knee Plan: Patient is a 73-year-old male with bilateral knee osteoarthritis here today for follow up. Did well on his last steroid injection. Status post steroid injection today. We will consider gel injections for the next visit Plan - s/p steroid injection to right knee today - PA for Durolane in 6 months - RTC 6 months Plan I spent 20 minutes reviewing the record and labs, taking a history, examining the patient, discussing the treatment plan, ordering diagnostic work up and documenting in the medical record2 Orders: Orders AMB Joint Injection/Aspiration Today M17.9 - Osteoarthritis of knee, unspecified Medications: New Kenalog (triamcinolone acetonide) 40 mg intra-articular ONCE 1 mL 0RF NS M17.9 - Osteoarthritis of knee, unspecified lidocaine (PF) 1 mL Infiltration ONCE 2 mL 0RF M17.9 - Osteoarthritis of knee, unspecified Coding Level of Care Code Est Pt Level 3 (86680) Diagnoses Primary osteoarthritis of both knees M17.0 Osteoarthritis type: primary Laterality: bilateral CPT Codes Coding - 25521 Large joint: 67393 - Large joint (3437799646)
[2024-07-09 09:02] VITALS: BP 140/80; PULSE 57; O2SAT 98; BMI 22.7
--- OUTSIDE RECORDS SUMMARY | 2024-07-09 09:26 | XMS_ITS ---
Author Organization [facility] Address [address] [place] [address] Care Team Providers Care Grill Attendant Name Role Phone Jasvir SOLANO, [place] Primary Care Provider Unava Gurvinder Quigley Unavailable [phone] REASON FOR VISIT screening,hx polyps Problems Problem Type SNOMED Code ICD Code Onset Dates Problem Status W/U Status Risk Notes Problem Diverticular disease of colon (230221431) Diverticulosis of large intestine without perforation or abscess without bleeding (K57.30) Active confirmed Encounters Encounter Location Date Provider [place] [facility] [place] [address] [place], [place] [phone] 03/05/2024 Gurvinder Guerrero Colon cancer scree bang [...] * CONOR JIMENEZ WDOB:1950 (73 yo M)Acc No.[id number]:03/05/2024 COLON WITH MAC Patient:?CONOR JIMENEZ Provider:?Gurvinder Guerrero MD :1950???Age:73 Y???Sex:Male Jesus e:03/05/2024 Address:[address], [place] Pcp:Brian Tay MD Subjective: * Chief Complaints: * ???1. Screening,hx polyps. * Medical History:? Objective: * Vitals:? Assessment: * Assessment: 1.?Colon cancer screening - Z12.11 (Primary)???2.?Colon polyps - K63.5???3.?Diverticulosis of large intestine without perforation or abscess without bleeding - K57.30???4.?Other hemorrhoids - K64.8??? Plan: * Treatment: * Procedure Codes:?26853 LESIO N REMOVAL COLONOSCOPY, Modifiers: PT , [...] MD Date:? 024 Generated for Que lara/Lula/Christiansmitting on:?07/09/2024 09:26 AM EDT
--- OUTSIDE RECORDS SUMMARY | 2024-07-09 09:26 | XMS_ITS ---
Author Organization [facility] Address [address] [place] [address] Care Team Providers Care Slabber Light Name Role Phone Jasvir SOLANO, Brian Primary Care Provider UnaGurvinder Carreon [phone] REASON FOR VISIT screening,hx polyps Encounters Encounter Location Date Provider Diagnosis [facility] [place] [address] [place], [place] [phone] 11/18/2023 Gurvinder Guerrero Plan Of Treatment No Information Progress Notes * CONOR JIMENEZ WDOB:1950 (73 yo M)Acc No.[id number]:11/18/2023 COLON WITH MAC Patient:?CONOR JIMENEZ Provider:?Gurvinder Guerrero MD :1950???Age:73 Y???Sex:Male Jesus e:11/18/2023 Address:[address] [facility] Pcp:Brian Tay MD Subjective: * Chief Complaints: [...] MD Date:? 024 Generated for Printi ng/Faxing/eTransmitting on:?07/09/2024 09:26 AM EDT
--- OUTSIDE RECORDS SUMMARY | 2024-07-09 09:27 | XMS_ITS ---
Author Organization [facility] Address [address] [place] [address] Care Team Providers Care Legal Instructor Name Role Phone Jasvir SOLANO, [place] Primary Care Provider Unava Gurvinder Quigley [phone] Encounters Encounter Location Date Provider Diagnosis [facility] [address] [place] [address] 11/22/2023 Gurvinder Guerrero Plan Of Treatment No Information Progress Notes * CONOR JIMENEZ WDOB:1950 (73 yo M)Acc No.[id number]:11/22/2023 Patient:?CONOR JIMENEZ :1950???Age:73 Y???Sex:Male Address:[place] [address] * true * Date:? Generated for Que lara/Lula/eTransmitting on:?07/09/2024 09:26 AM EDT
--- OUTSIDE RECORDS SUMMARY | 2024-07-09 09:27 | XMS_ITS | Patient Health Record ---
Author Organization [facility] Address [address] [place] [address] Care Team Providers Care Supervisor Border Department Name Role Phone Jasvir SOLANO, [place] Primary Care Provider Gurvinder Ross Unavailable [phone] Allergies No Known Allergies Results Component Value Reference Range Notes Pathology Reviewed date:03/13/2024 09:14:28 AM Interpretation: Performing Lab:[facility], [address] [place] [phone] Notes/Report: Name: Varinder Sanchze Age /Sex: 73/M : 1950 Unit#: [id number] Attend Dr: Gurvinder Guerrero MD Re03/05/24 Status : [facility] Location: [facility] Disch: SPEC : [id number] REC STATUS: BESSIE RAO NUM: [id number] SHEELA: 03/05/24-[address] [facility] [address]: Gurvinder Guerrero MD ENTERED: 03/05/24-10 55 SP TYPE: Surgical OTHR DR: Brian Tay MD ORDERED: Gross Micro L4 Addendum Addendum 1 Entered: 03/09/24-1037 Additional tissue le vels examined; no change in diagnosis. Addendum Signed ____ __(signature on file) Samanta [place] 03/09/24 1038 Diagnosis Colon, ascending, po lyp: [...] Sanchez Age /Sex: 73/M : 1950 Unit#: [id number] Attend Dr: Gurvinder Guerrero MD Re03/05/24 Status : [place] [facility] [place] Location: [facility] Disch: SPEC : [id number] RECD : 03/05/24 STATUS: BESSIE RAO NUM: [id number] SHEELA: 03/05/24-[address] [facility] [address]: Gurvinder Guerrero MD ENTERED: 03/05/24 SP TYPE: Surgical OTHR DR: Brian Tay MD ORDERED: Gross Micro L4 Copies To: Brian Tay MD [facility] [place],[address] [place] [address] Gurvinder Guerrero MD [facility] [address] [place] [address] Signed (si gnature on file) Samanta Yoko 03/06/24 1505 END OF REPORT Reason For Referral Referring Provider First Name Brian Referring Provider Last Name Jasvir Referring Provider Speciality Internal M edicine Referred Organization [facility] Referred Provider Gurvinder Guerrero Referred Address [address] [place] [address],[place], [place],[address],[place] Referred Provider Specialty Gastroentero noah General Notes Pao Henry 024 09:48:16 AM EDT > [place] [facility] [place] from Dr. Tay's office for visit with Dr. Guerrero on [phone] Referral Priority Routine Medications Medication SIG (Take, Route, Fr equency, Duration) Notes Start Date End Date Status Ambien 5 MG 1 tablet at bedtime as needed Orally Once a day Active Aspirin Adult Not-Ta cece Problems Problem Type SNOMED Code ICD Code Onset Dates Problem Status W/U Status Risk Notes Problem Colon cancer screening (966685361) Colon cancer screening (Z12.11) Active confirmed Problem History of polyp of colon (situation) (106664055) Personal history of colonic polyps (Z86.010) Active confirmed Problem Pre-procedure evaluation check (009739653) Encounter for other preprocedural examination (Z01.818) Active confirmed Problem Diverticular disease of colon (838002302) Diverticulosis of large intestine without perforation or abscess without bleeding (K57.30) Active confirmed Vital Signs Blood pressure diastolic 00 mm Hg 08/09/2023 Height 67 in 08/09/2023 Blood pressure systolic 00 mm Hg 08/09/2023 Weight 151 lbs 08/09/2023 BMI 23.65 kg/m2 08/09/2023 Encounters Encounter Location Date Provider Diagnosis [facility] [place] Out[place] [address] [place], [place] [phone] 03/05/2024 Gurvinder Guerrero Colon cancer screeni ng Z12.11 ; Colon polyps K63.5 ; Diverticulosis of large intestine without perforation or abscess without bleeding K57.30 and Other hemorrhoids K64.8 [facility] [address] [place] [address] 08/09/2023 Gurvinder Guerrero Colon cancer screeni ng Z12.11 ; Encounter for other preprocedural examination Z01.818 and Personal history of colonic polyps Z86.010 [facility] [address] [place] [address] 11/22/2023 Gurvinder Guerrero Assessments Encounter Date Diagnosis [...] Insured Coverage Start Date Coverage End Date [facility] PROFESSIONAL CLAIMS [address] [place] [address] [id number] VARINDER SANCHEZ Self - patient is the insured Medical (General) History Medical History History ICD Code Tubular adenoma removed in 09/2002--had a neg. colonoscopy in 2007 Denies MS,DM,CVA,Lung disease,renal dise ase Negative colonoscopy in 05/2013 Surgical History Surgery Date(Month/Year) Hernia surgery x 2
== END 2024-07-09 09:39 | disposition home or self-care (01) ==
LOC: HO.RHE 08:45
PROVIDERS: PCP Internal Medicine; Visit Provider Student in an Organized Health Care Education/Training Program
DX: M17.11 Unilateral primary osteoarthritis, right knee (principal); M17.0 Bilateral primary osteoarthritis of knee
CPT/HCPCS: 20610; 99213

== ENCOUNTER → 2024-07-09 08:45 | Outpatient (BNVA) | payer MEDICARE, SELFPAY | PROVIDERS: PCP Internal Medicine; Visit Provider Student in an Organized Health Care Education/Training Program | DX: M17.0 Bilateral primary osteoarthritis of knee (principal) | CPT/HCPCS: 99212; J3300 ==

== ENCOUNTER 2024-07-11 09:31 | Outpatient (AMB) | payer MEDICARE, SELFPAY ==
[2024-07-11 09:33] VITALS: BP 130/70; PULSE 66; O2SAT 97; BMI 22.8
--- NOTE | 2024-07-11 09:33 | A.OFFPC_ITS ---
Vital Signs 07/11/24 09:33 Height 5 ft 10 in Weight 159 lb 4 oz BMI 22.8 BP 130/70 Blood Pressure Location Lt brachial Position Sitting Pulse 66 Pulse Source Pulse Oximeter Pulse Oximetry (%) 97 Oxygen Delivery Method Room Air Intake Visit Reasons: hyperlipidemia, OA, elevated BP, vasovagal syncope [employer] Required: No Accompanied by: Self / Same As Patient Allergies No Known Allergies Allergy (Verified 07/11/24 10:01) Medication List - Last Reconciled 07/11/24 by Brian Tay MD amlodipine 2.5 mg PO DAILY aspirin (Ecotrin Low Strength) 81 mg PO DAILY atorvastatin 10 mg PO DAILY diclofenac sodium 1% (Voltaren Arthritis Pain) 4 grams topical QID PRN 30 days finasteride 5 mg PO DAILY 90 days hyaluronate sodium, stabilized (Durolane) 60 mg (3 mL) intra-articular .every 6 months meloxicam 15 mg PO DAILY zolpidem 10 mg PO BEDTIME PRN Tobacco use date assessed: 07/11/24 Fall risk assessment: 1 Fall in past year Last assessed Fall Risk: 07/11/24 Dental Screening Dental Screen Date: 07/11/24 Did you have a dental visit in the last 12 months?: Yes Did you have a dental problem in the last 6 months where you did not have access to dental care?: No Was dental information given to patient?: Patient has dentist HPI hyperlipidemia, OA, elevated BP, vasovagal syncope HPI Details Patient comes in today for his follow up visit States that he feels okay He denies any headaches or dizziness Denies any chest pains, no SOB No nausea/vomiting, no abdominal pain No change in bowel habits noted He was started on Atorvastatin 10 mg QD by cardiology last month to help lower his cholesterol level - states that he is tolerating the medication so far without any problems He also received a cortisone injection into his right knee from rheumatology last week, with (+) relief of his knee symptoms Needs his Zolpidem Rx refilled He had his follow up labs done last week - to discuss his results [facility] Medical History (Updated 07/11/24 @ 10:29 by Brian Tay MD) Essential hypertension Syncope Osteoarthritis Insomnia Lyme arthritis of knee Pure hypercholesterolemia Leukopenia Hypermobility arthralgia Benign prostatic hyperplasia without lower urinary tract symptoms Surgical History History of hernia surgery Hx of colonoscopy (~05/2013) Family History Mother No problems noted. Father No problems noted. Social History Household Members: Spouse Housing: House Alcohol intake: current Alcohol intake frequency: a few times a week Alcohol type: beer Patient Tobacco Use Status: Former Tobacco user e-Cigarette/Vaping Use: Never Used Second Hand Smoke Exposure: Yes service: No Current occupational status: retired Cognitive needs: No Hearing needs: No Vision needs: Yes Questionnaire PHQ-9 Over the last 2 weeks, how often have you been bothered by any of the following problems? 1. Little interest or pleasure in doing things: not at all 2. Feeling down, depressed, or hopeless: not at all 3. Trouble falling or staying asleep, or sleeping too much: not at all 4. Feeling tired or having little energy: not at all 5. Poor appetite or overeating: not at all 6. Feeling bad about yourself - or that you are a failure or have let yourself or your family down: not at all 7. Trouble concentrating on things, such as reading the newspaper or watching television: not at all 8. Moving or speaking so slowly that other people could have noticed. Or the opposite - being so fidgety or restless that you have been moving around a lot more than usual: not at all 9. Thoughts that you would be better off or of hurting yourself in some way: not at all Total score: 0 Depression Screening Interpretation: Negative Depression Screening Done: Yes 31971 - PHQ-9 Billing: Yes Source: Developed by Drs. Gurvinder Dubois, Yulia Rollins, Tate Garcia and colleagues, with an educational justino from [employer]. Thrive Questionnaire Date Thrive assessed: 07/11/24 I am a: Patient What is your living situation today?: I have a steady place to live Within the past 12 months, did the food you bought not last and you didn't have the money to get more?: Never true Within the past 12 months, did you worry whether your food would run out before you got money to buy more?: Never true Do you have trouble paying for medicines?: No Do you have trouble getting transportation to medical appointments?: No Do you have trouble paying your heating and electricity bill?: No Do you have trouble taking care of your child, family member or friend?: I choose not to answer this question Do you have trouble with day-to-day activities such as bathing, preparing meals, shopping, managing finances, etc.?: No Are you currently unemployed and looking for a job?: No Are you interested in more education?: I choose not to answer this question Please select the resources that you would like help with: None Currently or been in a relationship where the following occur: I choose not to answer THRIVE Score: 0 AUDIT C Alcohol Use Questionnaire (AUDIT-C) 1. How often do you have a drink containing alcohol?: Monthly or less 2. How many drinks containing alcohol do you have on a typical day when you are drinking?: 1 or 2 3. How often do you have six or more drinks on one occasion?: Never Total Score: 1 Score Reviewed/Action Taken: Yes EMILIANO-7 AMB Questionnaire EMILIANO-7 Date EMILIANO - 7 assessed: 07/11/24 Feeling nervous, anxious, or on edge: 0 = Not at all Not being able to stop or control worryin = Not at all Worrying too much about different things: 0 = Not at all Trouble relaxin = Not at all Being so restless that it is hard to sit still: 0 = Not at all Becoming easily annoyed or irritable: 0 = Not at all Feeling afraid as if something awful might happen: 0 = Not at all Total EMILIANO-7 score (0-4 normal; 5-9 mild; 10-14 moderate; 15-21 severe): 0 Source: Developed by Drs. Gurvinder Dubois, Yulia Rollins, Tate Garcia and colleagues, with an educational justino from [employer]. Review of Systems Const Denies chills, Denies fatigue, Denies fever(s) and Denies headache(s) ENT Denies dysphagia, Denies dizziness, Denies otalgia, Denies headache(s), Denies neck pain, Denies odynophagia and Denies sore throat Card Denies chest pain, Denies irregular heart rhythm, Denies palpitations and Denies dyspnea Resp Denies chest congestion, Denies cough and Denies dyspnea GI Denies abdominal pain, Denies constipation, Denies dysphagia, Denies heartburn, Denies diarrhea, Denies nausea, Denies odynophagia and Denies vomiting Denies difficulty urinating, Denies dysuria and Denies urinary frequency Musc Denies back pain, Reports arthralgias (on and off in both knees, mostly mild) and Denies neck pain Skin/Breast Denies rash Neuro Denies dizziness, Denies headache(s) and Denies paresthesias Endo Denies fatigue and Denies palpitations Physical exam (Primary Care) Vital Signs: Last Vital Signs Pulse 66 07/11/24 09:33 BP 130/70 07/11/24 09:33 Pulse Ox 97 07/11/24 09:33 Oxygen Delivery Method Room Air 07/11/24 09:33 BMI result Body Mass Index 22.8 Tobacco/Smoking Status: Tobacco use Status Tobacco use date assessed 07/11/24 07/11/24 09:38 Patient Tobacco Use Status Former Tobacco user 07/11/24 09:38 e-Cigarette/Vaping Use Never Used 07/11/24 09:38 PHQ-9: PHQ-9 Score PHQ-9: Total score 0 07/11/24 09:38 Depression Screening Interpretation: Negative Thrive Assessment: Date of Thrive Assessment Date Thrive assessed 07/11/24 07/11/24 09:38 Currently or been in a relationship where the following occur: I choose not to answer Const General: no acute distress and alert HENMT Ears: TM's normal bilaterally and EAC's normal Throat: Yes posterior oropharynx normal and Yes tonsils normal (no TP congestion) Neck Neck: Yes no lymphadenopathy and Yes supple Thyroid: Thyroid normal Resp Auscultation: clear to auscultation bilaterally, no rales and no wheezes Cardio Rate: regular rate Rhythm: regular rhythm Heart sounds: no murmurs GI Palpation (GI): Soft to palpation and nontender Auscultation: normal bowel sounds General: Yes no CVA tenderness Back/Spine/Pelvis Back: no CVA tenderness Thoracic/Lumbar Spine: No lumbar spinal tenderness Skin Rashes: no rashes Extrem General: Yes no clubbing, cyanosis or edema Right lower extremity: knee Details: tenderness; no swelling Left lower extremity: knee Details: tenderness; no swelling Results Reviewed Results Reviewed: Laboratory Tests 07/05/24 10:03 Sodium 142 Potassium 4.3 Creatinine 0.65 Estimated GFR > 60 Fasting Glucose 100 H Calcium 9.2 AST 36 ALT 38 Triglycerides 59 Cholesterol 165 LDL Cholesterol, Calc 95 HDL Cholesterol 59 Coding Level of Care Code Est Pt Level 4 (05185) Complex EM visit Add On G2211 Diagnoses Pure hypercholesterolemia E78.00 Vasovagal syncope R55 Essential hypertension I10 Rotator cuff tear arthropathy of right shoulder M75.101; M12.811 Lyme arthritis of knee A69.23 Hypermobility arthralgia M25.50 Benign prostatic hyperplasia without lower urinary tract symptoms N40.0 Insomnia, unspecified type G47.00 Insomnia type: unspecified Additional Codes PHQ-9 - 15154 - PHQ-9 Billing: Yes ([id number]) Assessment & Plan Assessment & Plan (1) Pure hypercholesterolemia: Code(s): E78.00 - Pure hypercholesterolemia, unspecified Category: Medical Plan: Reinforced low cholesterol diet Patient was started on Atorvastatin 10 mg QD by cardiology last month - states that he is tolerating the medication so far without any problems Have advised him that his cholesterol levels have improved significantly on his labs done last week Continue Atorvastatin 10 mg QD Will recheck his labs and fasting lipids in 6 months for follow up (2) Vasovagal syncope: Code(s): R55 - Syncope and collapse Category: Medical Plan: He had a vasovagal episode back in November 2023 when he was supposed to go for his colonoscopy and his procedure was cancelled Work ups done in the ER were negative Have advised patient that this was likely due to dehydration/hypovolemia and excessive physical exertion as patient went for a 6 mile run that morning and also had a few cups of coffee at the time before his syncopal episode; he's had no recurrence of his syncope since Echocardiogram done back in February 2024 came out grossly normal - normal LV ejection fraction at 55-60% with impaired relaxation filling pattern. There are calcific aortic valve changes noted with normal cardiac valvular dopplers; RV systolic pressure was normal and there were no gross pericardial effusion noted Patient was also referred to cardiology for further evaluation and he underwent cardiac stress testing, which came back normal Continue Aspirin 81 mg QD (3) Essential hypertension: Code(s): I10 - Essential (primary) hypertension Category: Medical Plan: Reinforced low sodium diet - goal is systolic BP of at least 120 to 130 mm or less Continue Amlodipine 2.5 mg QD Patient is reminded to continue monitoring his blood pressure regularly (4) Rotator cuff tear arthropathy of right shoulder: Code(s): M75.101 - Unspecified rotator cuff tear or rupture of right shoulder, not specified as traumatic; M12.811 - Other specific arthropathies, not elsewhere classified, right shoulder Category: Medical Plan: Right shoulder MRI done in February 2022 revealed (+) completely torn and retracted subscapularis tendon with moderate to severe muscle atrophy; supraspinatus tendinosis with ill-defined partial tearing posteriorly; mild supraspinatus muscle atrophy; completely torn and retracted biceps tendon and moderate acromioclavicular and glenohumeral osteoarthritis He has been advised by orthopedics to try conservative therapy at the time Patient states that his right shoulder pain and ROM have improved significantly with physical therapy and he continues to do the shoulder exercises and stretching that he was taught by physical therapy regularly, and he is happy that he did not have to undergo surgical intervention for his shoulder Follow up with orthopedics as scheduled (5) Lyme arthritis of knee: Comment: treated in 1994 no symptoms since 2014 Code(s): A69.23 - Arthritis due to Lyme disease Category: Medical Plan: Patient was treated for Lyme disease in 1994 X-rays of both knees done back in January 2022 came out normal Repeat knee x-rays done in January 2024 revealed (+) mild degenerative disease bilaterally States that he takes Meloxicam PRN with good relief He has also been seeing rheumatology for follow up regularly and gets cortisone injections into his knees when needed, which he feels help - states that he just got another injection into his right knee last week He is also still taking some OTC Turmeric and Osteo-flex and feels that they are helping as well and he is happy that he is still able to continue running on a regular basis, which he is very passionate about (6) Hypermobility arthralgia: Code(s): M25.50 - Pain in unspecified joint Category: Medical Plan: Continue Meloxicam 15 mg QD PRN Follow up with rheumatology as scheduled (7) Benign prostatic hyperplasia without lower urinary tract symptoms: Code(s): N40.0 - Benign prostatic hyperplasia without lower urinary tract symptoms Category: Medical Plan: Continue Finasteride 5 mg QD Follow up with urology as scheduled (8) Insomnia: Code(s): G47.00 - Insomnia, unspecified Category: Medical Qualifiers: Insomnia type: unspecified Qualified Code(s): G47.00 - Insomnia, unspecified Plan: Sleep hygiene reinforced Continue Zolpidem 10 mg Q HS PRN - Rx refilled Plan To return as scheduled in 6 months for his next annual physical examination Orders: Orders UA CC w/rflx Micro + Cult 6 Months R30.0 - Dysuria, Z00.00 - Encounter for general adult medical examination without abnormal findings Prostate Specific Antigen 6 Months N40.0 - Benign prostatic hyperplasia without lower urinary tract symptoms, Z00.00 - Encounter for general adult medical examination without abnormal findings Vitamin B12 and Folate 6 Months E53.8 - Deficiency of other specified B group vitamins, Z00.00 - Encounter for general adult medical examination without abnormal findings Hemoglobin A1c 6 Months E11.9 - Type 2 diabetes mellitus without complications, Z00.00 - Encounter for general adult medical examination without abnormal findings Complete Blood Count Auto Diff 6 Months D64.9 - Anemia, unspecified, Z00.00 - Encounter for general adult medical examination without abnormal findings Comprehensive [place]. Panel Fast 6 Months E78.00 - Pure hypercholesterolemia, unspecified, Z00.00 - Encounter for general adult medical examination without abnormal findings Lipid Panel 6 Months E78.00 - Pure hypercholesterolemia, unspecified, Z00.00 - Encounter for general adult medical examination without abnormal findings TSH reflex Free T4 6 Months E78.00 - Pure hypercholesterolemia, unspecified, Z00.00 - Encounter for general adult medical examination without abnormal f indings Vitamin D 25-OH Total 6 Months E55.9 - Vitamin D deficiency, unspecified, Z00.00 - Encounter for general adult medical examination without abnormal findings Medications: Changed From zolpidem 10 mg PO BEDTIME PRN insomnia To zolpidem 10 mg PO BEDTIME 90 days PRN 90 tabs 0RF insomnia
--- OUTSIDE RECORDS SUMMARY | 2024-07-11 10:18 | XMS_ITS ---
Author Organization [facility] Address [address] [place] [address] Care Team Providers Care Bus Assistant Name Role Phone Jasvir SOLANO, Brian Primary Care Provider UnaGurvinder Carreon [phone] REASON FOR VISIT screening,hx polyps Encounters Encounter Location Date Provider Diagnosis [facility] [place] [address] [place], [place] [id number] 11/18/2023 Gurvinder Guerrero Plan Of Treatment No Information Progress Notes * CONOR JIMENEZ WDOB:1950 (73 yo M)Acc No.[id number]:11/18/2023 COLON WITH MAC Patient:?CONOR JIMENEZ Provider:?Gurvinder Guerrero MD :1950???Age:73 Y???Sex:Male Jesus e:11/18/2023 Address:[id number] Pcp:Brian Tay MD Subjective: * Chief Complaints: [...] MD Date:? 024 Generated for Printi ng/Faxing/eTransmitting on:?07/11/2024 10:18 AM EDT
--- OUTSIDE RECORDS SUMMARY | 2024-07-11 10:19 | XMS_ITS ---
Author Organization [facility] Address [address] [place] [address] Care Team Providers Care Nuclear Equipment Test Engineer Name Role Phone Jasvir SOLANO, [place] Primary Care Provider Unava Gurvinder Quigley [phone] Encounters Encounter Location Date Provider Diagnosis [facility] [address] [place] [address] 11/22/2023 Gurvinder Guerrero Plan Of Treatment No Information Progress Notes * CONOR JIMENEZ WDOB:1950 (73 yo M)Acc No.[id number]:11/22/2023 Patient:?CONOR JIMENEZ :1950???Age:73 Y???Sex:Male Address:[place] [address] * true * Date:? Generated for Que lara/Lula/eTransmitting on:?07/11/2024 10:18 AM EDT
--- OUTSIDE RECORDS SUMMARY | 2024-07-11 10:19 | XMS_ITS ---
Author Organization [facility] Address [address] [place] [address] Care Team Providers Care General Machinist Name Role Phone Jasvir SOLANO, [place] Primary Care Provider Unava Gurvinder Quigley Unavailable [phone] REASON FOR VISIT screening,hx polyps Problems Problem Type SNOMED Code ICD Code Onset Dates Problem Status W/U Status Risk Notes Problem Diverticular disease of colon (452782274) Diverticulosis of large intestine without perforation or abscess without bleeding (K57.30) Active confirmed Encounters Encounter Location Date Provider Diagnosis [facility] [place] [address] [place], [place] [phone] 03/05/2024 Gurvinder Guerrero Colon cancer scree bang [...] * CONOR JIMENEZ WDOB:1950 (73 yo M)Acc No.[id number]:03/05/2024 COLON WITH MAC Patient:?CONOR JIMENEZ Provider:?Gurvinder Guerrero MD :1950???Age:73 Y???Sex:Male Jesus e:03/05/2024 Address:[place], [place] Pcp:Brian Tay MD Subjective: * Chief Complaints: * ???1. Screening,hx polyps. * Medical History:? Objective: * Vitals:? Assessment: * Assessment: 1.?Colon cancer screening - Z12.11 (Primary)???2.?Colon polyps - K63.5???3.?Diverticulosis of large intestine without perforation or abscess without bleeding - K57.30???4.?Other hemorrhoids - K64.8??? Plan: * Treatment: * Procedure Codes:?47759 LESIO N REMOVAL COLONOSCOPY, Modifiers: PT , [...] Guerrero MD Date:? 024 Generated for Que lara/Lula/eTcarylsmitting on:?07/11/2024 10:18 AM EDT
--- OUTSIDE RECORDS SUMMARY | 2024-07-11 10:19 | XMS_ITS | Patient Health Record ---
Author Organization [facility] Address [address] [place] [address] Care Team Providers Care Market Development Analyst Name Role Phone Jasvir SOLANO, [place] Primary Care Provider Gurvinder Ross Unavailable [phone] Allergies No Known Allergies Results Component Value Reference Range Notes Pathology Reviewed date:03/13/2024 09:14:28 AM Interpretation: Performing Lab:[facility], [address] [place] [id number] Notes/Report: Name: Varinder Sanchez Age /Sex: 73/M : 1950 Unit#: [id number] Attend Dr: Gurvinder Guerrero MD Re03/05/24 Status : [facility] Location: [facility] Disch: SPEC : [id number] REC STATUS: BESSIE RAO NUM: [id number] SHEELA: 03/05/24-[address] [facility] [address]: Gurvinder Guerrero MD ENTERED: 03/05/24-10 55 SP TYPE: Surgical OTHR DR: Brian Tay MD ORDERED: Gross Micro L4 Addendum Addendum 1 Entered: 03/09/24-1037 Additional tissue le vels examined; no change in diagnosis. Addendum Signed ____ __(signature on file) Samanta Spreckels 03/09/24 1038 Diagnosis Colon, ascending, po lyp: [...] Sanchez Age /Sex: 73/M : 1950 Unit#: [id number] Attend Dr: Gurvinder Guerrero MD Re03/05/24 Status : [place] [facility] [place]: [place] Disch: SPEC : [id number] RECD : 03/05/24 STATUS: BESSIE RAO NUM: [id number] SHEELA: 03/05/24-[address] [facility] [address]: Gurvinder Guerrero MD ENTERED: 03/05/24 SP TYPE: Surgical OTHR DR: Brian Tay MD ORDERED: Gross Micro L4 Copies To: Brian Tay MD [facility] [place] [address] Gurvinder Guerrero MD [facility] [address] [place] [address] Signed (si gnature on file) Samanta Yoko 03/06/24 1505 END OF REPORT Reason For Referral Referring Provider First Name Brian Referring Provider Last Name Jasvir Referring Provider Speciality Internal M edicine Referred Organization [facility] Referred Provider Gurvinder Guerrero Referred Address [address] [place] [address],[place], [place],[address],[place] Referred Provider Specialty Gastroentero noah General Notes Pao Henry 024 09:48:16 AM EDT > requested an [facility] blue referral from Dr. Tay's office for visit with Dr. Guerrero on [phone] Referral Priority Routine Medications Medication SIG (Take, Route, Fr equency, Duration) Notes Start Date End Date Status Ambien 5 MG 1 tablet at bedtime as needed Orally Once a day Active Aspirin Adult Not-Ta cece Problems Problem Type SNOMED Code ICD Code Onset Dates Problem Status W/U Status Risk Notes Problem Colon cancer screening (491043817) Colon cancer screening (Z12.11) Active confirmed Problem History of polyp of colon (situation) (583347283) Personal history of colonic polyps (Z86.010) Active confirmed Problem Pre-procedure evaluation check (382075439) Encounter for other preprocedural examination (Z01.818) Active confirmed Problem Diverticular disease of colon (697080104) Diverticulosis of large intestine without perforation or abscess without bleeding (K57.30) Active confirmed Vital Signs Blood pressure diastolic 00 mm Hg 08/09/2023 Height 67 in 08/09/2023 Blood pressure systolic 00 mm Hg 08/09/2023 Weight 151 lbs 08/09/2023 BMI 23.65 kg/m2 08/09/2023 Encounters Encounter Location Date Provider Diagnosis [facility] [place] Out[place] [address] [place], [place] [phone] 03/05/2024 Gurvinder Guerrero Colon cancer screeni ng Z12.11 ; Colon polyps K63.5 ; Diverticulosis of large intestine without perforation or abscess without bleeding K57.30 and Other hemorrhoids K64.8 [facility] [address] [place] [phone] 08/09/2023 Gurvinder Guerrero Colon cancer screeni ng Z12.11 ; Encounter for other preprocedural examination Z01.818 and Personal history of colonic polyps Z86.010 [facility] [address] [place] [address] 11/22/2023 Gurvinder Guerrero Assessments Encounter Date Diagnosis [...] Insured Coverage Start Date Coverage End Date [facility] [employer] [address] [place] [address] [id number] VARINDER SANCHEZ Self - patient is the insured Medical (General) History Medical History History ICD Code Tubular adenoma removed in 09/2002--had a neg. colonoscopy in 2007 Denies [place],DM,CVA,Lung disease,renal dise ase Negative colonoscopy in 05/2013 Surgical History Surgery Date(Month/Year) Hernia surgery x 2
== END 2024-07-11 10:24 | disposition home or self-care (01) ==
LOC: HO.HMCH 09:31
PROVIDERS: PCP Internal Medicine; Visit Provider Internal Medicine
DX: E78.00 Pure hypercholesterolemia, unspecified (principal); A69.23 Arthritis due to Lyme disease; R55 Syncope and collapse; I10 Essential (primary) hypertension; M75.101 Unspecified rotator cuff tear or rupture of right shoulder, not specified as traumatic; M12.811 Other specific arthropathies, not elsewhere classified, right shoulder; M25.50 Pain in unspecified joint; N40.0 Benign prostatic hyperplasia without lower urinary tract symptoms; G47.00 Insomnia, unspecified

== ENCOUNTER → 2024-07-11 09:31 | Outpatient (BNVA) | payer MEDICARE, SELFPAY | PROVIDERS: PCP Internal Medicine; Visit Provider Internal Medicine | DX: E78.00 Pure hypercholesterolemia, unspecified (principal); I10 Essential (primary) hypertension; M75.101 Unspecified rotator cuff tear or rupture of right shoulder, not specified as traumatic; M12.811 Other specific arthropathies, not elsewhere classified, right shoulder; A69.23 Arthritis due to Lyme disease; M25.50 Pain in unspecified joint; N40.0 Benign prostatic hyperplasia without lower urinary tract symptoms; G47.00 Insomnia, unspecified | CPT/HCPCS: 96127; 99212 ==

== ENCOUNTER 2024-08-07 08:29 | Outpatient (REF) | payer MEDICARE, SELFPAY ==
[2024-08-08 06:07] LABS: Lyme Blot 3.78 index
[2024-08-08 14:44] LABS: Lyme Abs Screen POSITIVE
[2024-08-08 21:08] LABS: 18 KD (IgG) Band REACTIVE; 23 KD (IgG) Band NON-REACTIVE; 23 KD (IgM) Band NON-REACTIVE; 28 KD (IgG) Band REACTIVE; 30 KD (IgG) Band REACTIVE; 39 KD (IgM) Band NON-REACTIVE; 39KD (IgG) Band REACTIVE; 41 KD (IgM) Band NON-REACTIVE; 41KD (IgG) Band REACTIVE; 45 KD (IgG) Band REACTIVE; 58 KD (IgG) Band REACTIVE; 66 KD (IgG) Band NON-REACTIVE; 93 KD (IgG) Band REACTIVE; Lyme IgG Blot Interp POSITIVE (NEGATIVE); Lyme IgM Blot Interp NEGATIVE (NEGATIVE)
== END 2024-08-07 08:30 | disposition home or self-care (01) ==
LOC: HO.LAB 08:29
PROVIDERS: PCP Internal Medicine; Visit Provider Internal Medicine
DX: T14.8XXA Other injury of unspecified body region, initial encounter (principal); W57.XXXA Bitten or stung by nonvenomous insect and other nonvenomous arthropods, initial encounter
CPT/HCPCS: 36415; 86617; 86618

== ENCOUNTER 2024-09-18 09:11 | Outpatient (REF) | payer MEDICARE, SELFPAY ==
--- OUTSIDE RECORDS SUMMARY | 2023-11-18 08:00 | XMS_ITS ---
Author Organization [facility] Address [address] [place] [address] Care Team Providers Care Table Games Supervisor Name Role Phone Jasvir SOLANO, Brian Primary Care Provider Gurvinder Ross [phone] REASON FOR VISIT screening,hx polyps Encounters Encounter Location Date Provider Diagnosis [facility] Outpatient [address] [place], [place] [phone] 11/18/2023 Gurvinder Guerrero Plan Of Treatment No Information Progress Notes * TONY CONOR WDOB:1950 (73 yo M)Acc No.[id number]:11/18/2023 COLON WITH MAC Patient: CONOR NANCE Provider: Briana Guerrero MD :1950 A ge:73 Y S ex:Male Date:11/18/2023 Address:[address] [facility] Pcp:Brian Tay MD Subjective: * Chief Complaints: * 1 . Screening,hx polyps. * Medical History: Objective: * Vitals: Assessment: Plan: * Treatment: * * The named appointment provid er may or may not be the originator of this progress note, and it is not deemed complete until electronically signed by the appointment provider. Sign off status: Pending * Provider: Briana Guerrero MD Date: 0 11/18/2023 Generated for Printi ng/Faxing/eTransmitting on: 0 09/19/2024 09:56 AM EDT
== END 2024-09-18 09:12 | disposition home or self-care (01) ==
LOC: HO.HOSX 09:11
PROVIDERS: Visit Provider Physician Assistant
DX: Z13.89 Encounter for screening for other disorder (principal)

== ENCOUNTER 2024-10-23 07:21 | Outpatient (AMB) | payer MEDICARE, SELFPAY ==
--- OUTSIDE RECORDS SUMMARY | 2023-11-18 08:00 | XMS_ITS ---
Author Organization [facility] Address [address] [place] [address] Care Team Providers Care Freight Forwarder Name Role Phone Jasvir SOLANO, Brian Primary Care Provider Gurvinder Ross [phone] REASON FOR VISIT screening,hx polyps Encounters Encounter Location Date Provider Diagnosis [facility] Outpatient [address] [place], [place] [phone] 11/18/2023 Gurvinder Guerrero Plan Of Treatment No Information Progress Notes * TONY CONOR WDOB:1950 (73 yo M)Acc No.[id number]:11/18/2023 COLON WITH MAC Patient: CONOR NANCE Provider: Briana Guerrero MD :1950 A ge:73 Y S ex:Male Date:11/18/2023 Address:[address] [facility] Pcp:Brian Tay MD Subjective: * Chief Complaints: * 1 . Screening,hx polyps. * Medical History: Objective: * Vitals: Assessment: Plan: * Treatment: * * The named appointment provid er may or may not be the originator of this progress note, and it is not deemed complete until electronically signed by the appointment provider. Sign off status: Pending * Provider: Briana Guerrero MD Date: 11/18/2023 Generated for Printi ng/Faxing/eTransmitting on: 10/23/2024 07:23 AM EDT
--- NOTE | 2024-10-23 07:28 | MHC.OFFVIS ---
Vital Signs 10/23/24 07:35 Height 5 ft 10 in Weight 160 lb 4.417 oz BMI 23.0 BP 134/80 Blood Pressure Location Lt brachial Position Sitting Pulse 52 Pulse Source Pulse Oximeter Pulse Oximetry (%) 98 Oxygen Delivery Method Room Air Intake Visit Reasons: euflexxa inj 1 Intake Note: Patient presents for Euflexxa injection #1. 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 - Received steroid injection of right knee Since then - reinfection of Lyme - Doxycycline prescribed by PCP - Did well after the steroid injection Today - Here for first Euflexxa series Rheumatologic History: Diagnosed with Lyme in 1994 - he states that there was 8 months between time of infection and treatment. Over the years he had a few episodes of bilateral knee swelling, joint pain and difficulty speaking. He states that when these episodes presented he was retreated with doxycycline for 3 months and the symptoms resolved. Current Rheumatology medications: Meloxicam 15mg prn Topical diclofenac 1% [facility] Medical History (Updated 08/06/24 @ 11:31 by Brian Tay MD) Essential hypertension Syncope Osteoarthritis Insomnia Lyme arthritis of knee Pure hypercholesterolemia Leukopenia Hypermobility arthralgia Benign prostatic hyperplasia without lower urinary tract symptoms Surgical History History of hernia surgery Hx of colonoscopy (~05/2013) Family History Mother No problems noted. Father No problems noted. Social History Household Members: Spouse Housing: House Alcohol intake: current Alcohol intake frequency: a few times a week Alcohol type: beer Patient Tobacco Use Status: Former Tobacco user e-Cigarette/Vaping Use: Never Used Second Hand Smoke Exposure: Yes service: No Current occupational status: retired Cognitive needs: No Hearing needs: No Vision needs: Yes Review of Systems Const Details: Review of Systems Constitutional: Denies fever, chills, weight loss ENT: Denies vision changes, eye pain or eye redness, dental caries, dry mouth GI: Denies nausea, vomiting, diarrhea, abdominal pain, change in BM Pulm: Denies SOB, FELDER, hemoptysis, wheezing Cards: Denies chest pain, palpitations Skin: Denies Raynaud's, rash, nail changes, photosensitivity, PALLIATIVE CARE SPECIALIST: Denies headaches, weakness, paresthesias, recurrent falls MSK: as per HPI All other systems reviewed and are unremarkable except noted above Physical Exam Exam Exam: Vital signs reviewed Physical Examination CONSTITUITIONAL Patient alert and cooperative. Well appearing and in no apparent painful distress MSK Hands Right Hand: Able to make a fist. No swelling or tenderness to palpation of these joints. No deformities noted. Left Hand: Able to make a fist. No swelling or tenderness to palpation of these joints. No deformities noted. Wrists Right Wrist: Full ROM. 70 degrees of wrist flexion, 80 degrees of wrist extension. No swelling or TTP Left Wrist: Full ROM. 70 degrees of wrist flexion, 80 degrees of wrist extension. No swelling or TTP Elbows Right Elbow: Full ROM. No swelling or TTP. No TTP of the medial and lateral epicondyles Left Elbow: Full ROM. No swelling or TTP. No TTP of the medial and lateral epicondyles Shoulders Right shoulder: Full ROM. No swelling noted. No TTP of the AC joint, subacromial bursa or posterior shoulder Left shoulder: Full ROM. No swelling noted. No TTP of the AC joint, subacromial bursa or posterior shoulder Knees Right knee: Full ROM. No swelling noted. No TTP of the knee joint lie or pes anserine bursa Left knee: Full ROM. No swelling noted. No TTP of the knee joint lie or pes anserine bursa. Crepitations felt bilaterally Ankles Right ankle: Good ankle dorsiflexion and plantar flexion. No swelling. No TTP of the ankle joint Left ankle: Good ankle dorsiflexion and plantar flexion. No swelling. No TTP of the ankle joint Feet Right foot: Negative squeeze test Left foot: Negative squeeze test Tender points? No tenderness to palpation of the bilateral trapezius, supraspinatus, anterior costochondral junctions, bilateral suboccipital muscle insertions SKIN No rashes Vital Signs: Last Vital Signs Pulse 52 10/23/24 07:35 BP 134/80 10/23/24 07:35 Pulse Ox 98 10/23/24 07:35 Oxygen Delivery Method Room Air 10/23/24 07:35 BMI result Body Mass Index 23.0 Office Procedures AMB Joint Injection/Aspiration Joint Injection/Aspiration Details: Procedure was explained to the patient and informed consent was obtained. ? Risks associated with the procedure were discussed with the patient including but not limited to bleeding, infection, drug reactions and reactions to the topical anesthetic. Patient made aware of signs to look out for infectious complications. The area of interest was identified and confirmed with patient. ?This was subsequently cleaned with chlorhexidine x3. ? The area was then anesthetized using ethyl chloride spray. 2cc Euflexxa was injected without issue. ?Minimal to no bleeding. ?Patient tolerated procedure. Primary Site: right knee Prep: site was prepped using aseptic technique and ethochloride spray was applied Injected: in the joint and other (2cc Euflexxa) Approach Used: anterior Procedure: The patient tolerated the procedure well Coding 84597 - Large joint Procedure code (CPT) selection complete Office Meds Euflexxa 10 mg/mL (mw 2.4-3.6 million) intra-articular syringe Performing Provider: Deya Floyd MD Performing Location: [facility] [place] Rheumatology Administered by: Deya Floyd MD on 10/23/24 10:45 Dose Route Admin Location Dispensed Lot Number Expiration Date [facility] Carpet Layer 20 mg intra-articular right knee 2 mL [id number] 03/19/25 [address]-1 [employer] Total Dispensed Waste 2 mL 0 % Results Reviewed Results Reviewed: XR bilateral knees 01/2024 FINDINGS: No fracture or joint effusion. Alignment is anatomic. Mild medial compartment joint space narrowing. No abnormal soft tissue calcification. IMPRESSION: Mild degenerative disease. Assessment & Plan Assessment & Plan (1) Osteoarthritis of right knee: Code(s): M17.11 - Unilateral primary osteoarthritis, right knee Qualifiers: Osteoarthritis type: primary Qualified Code(s): M17.11 - Unilateral primary osteoarthritis, right knee Plan: #OA right knee Patient is a 73 y.o. male with bilateral knee OA but with more pain on the right knee than left. Had improvement after steroid injection 07/2024 Had a reinfection with Lyme and is currently on Doxycycline S/p Euflexxa today Plan - RTC 1 week for 2nd dose of Euflexxa Plan I spent 30 minutes reviewing the record and labs, taking a history, examining the patient, discussing the treatment plan, ordering diagnostic work up and documenting in the medical record Orders: Orders AMB Joint Injection/Aspiration Today M17.11 - Unilateral primary osteoarthritis, right knee Coding Level of Care Code Est Pt Level 3 (28232) Diagnoses Primary osteoarthritis of right knee M17.11 Osteoarthritis type: primary CPT Codes Coding - 13572 Large joint: 28903 - Large joint ([id number])
[2024-10-23 07:35] VITALS: BP 134/80; PULSE 52; O2SAT 98; BMI 23.0
== END 2024-10-23 08:04 | disposition home or self-care (01) ==
LOC: HO.RHE 07:22
PROVIDERS: Visit Provider Student in an Organized Health Care Education/Training Program
DX: M17.11 Unilateral primary osteoarthritis, right knee (principal)
CPT/HCPCS: 20610; 99213

== ENCOUNTER → 2024-10-23 07:21 | Outpatient (BNVA) | payer MEDICARE, SELFPAY | PROVIDERS: Visit Provider Student in an Organized Health Care Education/Training Program | DX: M17.11 Unilateral primary osteoarthritis, right knee (principal) | CPT/HCPCS: 20610; 99212; J7323 ==

== ENCOUNTER 2024-10-30 07:32 | Outpatient (AMB) | payer MEDICARE, SELFPAY ==
--- OUTSIDE RECORDS SUMMARY | 2023-11-18 08:00 | XMS_ITS ---
Author Organization [facility] Address [address] [place] [address] Care Team Providers Care Engineer Sergeant Name Role Phone Jasvir SOLANO, Brian Primary Care Provider Gurvinder Ross [phone] REASON FOR VISIT screening,hx polyps Encounters Encounter Location Date Provider Diagnosis [facility] Outpatient [address] [place], [place] [phone] 11/18/2023 Gurvinder Guerrero Plan Of Treatment No Information Progress Notes * TONY CONOR WDOB:1950 (73 yo M)Acc No.[id number]:11/18/2023 COLON WITH MAC Patient: CONOR NANCE Provider: Briana Guerrero MD :1950 A ge:73 Y S ex:Male Date:11/18/2023 Address:[address] [facility] Pcp:Brian Tay MD Subjective: * Chief Complaints: * 1 . Screening,hx polyps. * Medical History: Objective: * Vitals: Assessment: Plan: * Treatment: * * The named appointment provid er may or may not be the originator of this progress note, and it is not deemed complete until electronically signed by the appointment provider. Sign off status: Pending * Provider: Briana uGerrero MD Date: 11/18/2023 Generated for Printi ng/Faxing/eTransmitting on: 10/30/2024 07:35 AM EDT
--- NOTE | 2024-10-30 07:38 | A.OFFVIS_ITS ---
Vital Signs 10/30/24 07:42 Height 5 ft 10 in Weight 159 lb 2.78 oz BMI 22.8 BP 142/80 H Blood Pressure Location Lt brachial Position Sitting Pulse 60 Pulse Source Pulse Oximeter Pulse Oximetry (%) 97 Oxygen Delivery Method Room Air Intake Visit Reasons: euflexxa inj 2 Intake Note: Patient presents for Euflexxa injection #2. 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 - Received 1st Dose of Euflexxa Today - Here for second dose of Euflexxa Rheumatologic History: Diagnosed with Lyme in 1994 - he states that there was 8 months between time of infection and treatment. Over the years he had a few episodes of bilateral knee swelling, joint pain and difficulty speaking. He states that when these episodes presented he was retreated with doxycycline for 3 months and the symptoms resolved. Current Rheumatology medications: Meloxicam 15mg prn Topical diclofenac 1% [facility] Medical History (Updated 08/06/24 @ 11:31 by Brian Tay MD) Essential hypertension Syncope Osteoarthritis Insomnia Lyme arthritis of knee Pure hypercholesterolemia Leukopenia Hypermobility arthralgia Benign prostatic hyperplasia without lower urinary tract symptoms Surgical History History of hernia surgery Hx of colonoscopy (~05/2013) Family History Mother No problems noted. Father No problems noted. Social History Household Members: Spouse Housing: House Alcohol intake: current Alcohol intake frequency: a few times a week Alcohol type: beer Patient Tobacco Use Status: Former Tobacco user e-Cigarette/Vaping Use: Never Used Second Hand Smoke Exposure: Yes service: No Current occupational status: retired Cognitive needs: No Hearing needs: No Vision needs: Yes Review of Systems Const Details: Review of Systems Constitutional: Denies fever, chills, weight loss ENT: Denies vision changes, eye pain or eye redness, dental caries, dry mouth GI: Denies nausea, vomiting, diarrhea, abdominal pain, change in BM Pulm: Denies SOB, FELDER, hemoptysis, wheezing Cards: Denies chest pain, palpitations Skin: Denies Raynaud's, rash, nail changes, photosensitivity, RECORDS MANAGEMENT ASSOCIATE: Denies headaches, weakness, paresthesias, recurrent falls MSK: as per HPI All other systems reviewed and are unremarkable except noted above Physical Exam Exam Exam: Vital signs reviewed Physical Examination CONSTITUITIONAL Patient alert and cooperative. Well appearing and in no apparent painful distress MSK Knees * Right knee: Full ROM. No swelling noted. No TTP of the knee joint lie or pes anserine bursa * Left knee: Full ROM. No swelling noted. No TTP of the knee joint lie or pes anserine bursa. * Crepitations felt bilaterally Vital Signs: Last Vital Signs Pulse 60 10/30/24 07:42 BP 142/80 H 10/30/24 07:42 Pulse Ox 97 10/30/24 07:42 Oxygen Delivery Method Room Air 10/30/24 07:42 BMI result Body Mass Index 22.8 Office Procedures AMB Joint Injection/Aspiration Joint Injection/Aspiration Details: Procedure was explained to the patient and informed consent was obtained. ? Risks associated with the procedure were discussed with the patient including but not limited to bleeding, infection, drug reactions and reactions to the topical anesthetic. Patient made aware of signs to look out for infectious complications. The area of interest was identified and confirmed with patient. ?This was subsequently cleaned with chlorhexidine x 2. ? The area was then anesthetized using ethyl chloride spray. 2cc Euflexxa was injected without issue. ?Minimal to no bleeding. ?Patient tolerated procedure. Primary Site: right knee Prep: site was prepped using aseptic technique and ethochloride spray was applied Injected: other (2cc Euflexxa ) Approach Used: anterior Procedure: The patient tolerated the procedure well Coding - Large joint Procedure code (CPT) selection complete Office Meds Euflexxa 10 mg/mL (mw 2.4-3.6 million) intra-articular syringe Performing Provider: Deya Floyd MD Performing Location: [facility] [place] Rheumatology Administered by: Deya Floyd MD on 10/30/24 08:11 Dose Route Admin Location Dispensed Lot Number Expiration Date [employer] 20 mg intra-articular right knee 2 mL [id number] 03/19/25 [address]-4 [employer] Total Dispensed Waste 2 mL 0 % Results Reviewed Results Reviewed: XR bilateral knees 01/2024 FINDINGS: No fracture or joint effusion. Alignment is anatomic. Mild medial compartment joint space narrowing. No abnormal soft tissue calcification. IMPRESSION: Mild degenerative disease. Assessment & Plan Assessment & Plan (1) Osteoarthritis of right knee: Code(s): M17.11 - Unilateral primary osteoarthritis, right knee Qualifiers: Osteoarthritis type: primary Qualified Code(s): M17.11 - Unilateral primary osteoarthritis, right knee Plan: #OA right knee Patient is a 73 y.o. male with bilateral knee OA but with more pain on the right knee than left. Had improvement after steroid injection 07/2024 Had a reinfection with Lyme and is currently on Doxycycline S/p Euflexxa today Plan - RTC 1 week for 2nd dose of Euflexxa Plan I spent 20 minutes reviewing the record and labs, taking a history, examining the patient, discussing the treatment plan, ordering diagnostic work up and documenting in the medical record Orders: Orders AMB Joint Injection/Aspiration Today M17.11 - Unilateral primary osteoarthritis, right knee Coding Level of Care Code Est Pt Level 3 (21576) Diagnoses Primary osteoarthritis of right knee M17.11 Osteoarthritis type: primary CPT Codes Coding - Large joint: 92133 - Large joint ([id number])
[2024-10-30 07:42] VITALS: BP 142/80; PULSE 60; O2SAT 97; BMI 22.8
== END 2024-10-30 08:06 | disposition home or self-care (01) ==
LOC: HO.RHE 07:33
PROVIDERS: Visit Provider Student in an Organized Health Care Education/Training Program
DX: M17.0 Bilateral primary osteoarthritis of knee (principal)
CPT/HCPCS: 20610; 99213

== ENCOUNTER → 2024-10-30 07:32 | Outpatient (BNVA) | payer MEDICARE, SELFPAY | PROVIDERS: Visit Provider Student in an Organized Health Care Education/Training Program | DX: M17.11 Unilateral primary osteoarthritis, right knee (principal) | CPT/HCPCS: 20610; 99212; J7323 ==

== ENCOUNTER 2024-11-06 08:08 | Outpatient (AMB) | payer MEDICARE, SELFPAY ==
--- NOTE | 2024-11-06 08:09 | MHC.OFFVIS ---
Vital Signs 11/06/24 08:16 Height 5 ft 10 in Weight 159 lb BMI 22.8 BP 132/70 Blood Pressure Location Lt brachial Position Sitting Pulse 58 Pulse Source Pulse Oximeter Pulse Oximetry (%) 96 Oxygen Delivery Method Room Air Intake Visit Reasons: euflexxa inj 3 Intake Note: Patient presents for Euflexxa injection #3 follow up. 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 - Received 2nd Dose of Euflexxa Today - Here for third dose of Euflexxa Rheumatologic History: Diagnosed with Lyme in 1994 - he states that there was 8 months between time of infection and treatment. Over the years he had a few episodes of bilateral knee swelling, joint pain and difficulty speaking. He states that when these episodes presented he was retreated with doxycycline for 3 months and the symptoms resolved. Current Rheumatology medications: Meloxicam 15mg prn Topical diclofenac 1% PFSH Medical History (Updated 08/06/24 @ 11:31 by Brian Tay MD) Essential hypertension Syncope Osteoarthritis Insomnia Lyme arthritis of knee Pure hypercholesterolemia Leukopenia Hypermobility arthralgia Benign prostatic hyperplasia without lower urinary tract symptoms Surgical History History of hernia surgery Hx of colonoscopy (~05/2013) Family History Mother No problems noted. Father No problems noted. Social History Household Members: Spouse Housing: House Alcohol intake: current Alcohol intake frequency: a few times a week Alcohol type: beer Patient Tobacco Use Status: Former Tobacco user e-Cigarette/Vaping Use: Never Used Second Hand Smoke Exposure: Yes service: No Current occupational status: retired Cognitive needs: No Hearing needs: No Vision needs: Yes Review of Systems Const Details: Review of Systems Constitutional: Denies fever, chills, weight loss ENT: Denies vision changes, eye pain or eye redness, dental caries, dry mouth GI: Denies nausea, vomiting, diarrhea, abdominal pain, change in BM Pulm: Denies SOB, FELDER, hemoptysis, wheezing Cards: Denies chest pain, palpitations Skin: Denies Raynaud's, rash, nail changes, photosensitivity, WELFARE DIRECTOR: Denies headaches, weakness, paresthesias, recurrent falls MSK: as per HPI All other systems reviewed and are unremarkable except noted above Physical Exam Exam Exam: Vital signs reviewed Physical Examination CONSTITUITIONAL Patient alert and cooperative. Well appearing and in no apparent painful distress MSK Knees Right knee: Full ROM. No swelling noted. No TTP of the knee joint lie or pes anserine bursa Left knee: Full ROM. No swelling noted. No TTP of the knee joint lie or pes anserine bursa. Crepitations felt bilaterally Vital Signs: Last Vital Signs Pulse 58 11/06/24 08:16 BP 132/70 11/06/24 08:16 Pulse Ox 96 11/06/24 08:16 Oxygen Delivery Method Room Air 11/06/24 08:16 BMI result Body Mass Index 22.8 Office Procedures AMB Joint Injection/Aspiration Joint Injection/Aspiration Details: Procedure was explained to the patient and informed consent was obtained. ? Risks associated with the procedure were discussed with the patient including but not limited to bleeding, infection, drug reactions and reactions to the topical anesthetic. Patient made aware of signs to look out for infectious complications. The area of interest was identified and confirmed with patient. ?This was subsequently cleaned with chlorhexidine x 2. ? The area was then anesthetized using ethyl chloride spray. 2cc Euflexxa was injected without issue. ?Minimal to no bleeding. ?Patient tolerated procedure. Primary Site: right knee Prep: site was prepped using aseptic technique and ethochloride spray was applied Injected: in the joint and other (2cc Euflexxa) Approach Used: anterior Procedure: The patient tolerated the procedure well Coding 70688 - Large joint Procedure code (CPT) selection complete Office Meds Euflexxa 10 mg/mL (mw 2.4-3.6 million) intra-articular syringe Performing Provider: Deya Floyd MD Performing Location: [facility] [place] [facility]ology Administered by: Katerin Del Rio RN on 11/06/24 08:30 Dose Route Admin Location Dispensed Lot Number Expiration Date [facility] P[employer]per 20 mg intra-articular right knee 2 mL [id number] 03/19/25 [address]-0 [employer] Total Dispensed Waste 2 mL 0 % Results Reviewed Results Reviewed: XR bilateral knees 01/2024 FINDINGS: No fracture or joint effusion. Alignment is anatomic. Mild medial compartment joint space narrowing. No abnormal soft tissue calcification. IMPRESSION: Mild degenerative disease. Assessment & Plan Assessment & Plan (1) Osteoarthritis of right knee: Code(s): M17.11 - Unilateral primary osteoarthritis, right knee Qualifiers: Osteoarthritis type: primary Qualified Code(s): M17.11 - Unilateral primary osteoarthritis, right knee Plan: #OA right knee Patient is a 7 y.o. male with bilateral knee OA but with more pain on the right knee than left. Had improvement after steroid injection 07/2024 Had a reinfection with Lyme and completed doxycycline antibiotics S/p Euflexxa today Plan - RTC 1 week for 3rd dose of Euflexxa Plan I spent 20 minutes reviewing the record and labs, taking a history, examining the patient, discussing the treatment plan, ordering diagnostic work up and documenting in the medical record Orders: Orders AMB Joint Injection/Aspiration Today M17.12 - Unilateral primary osteoarthritis, left knee Coding Level of Care Code Est Pt Level 3 (27933) Diagnoses Primary osteoarthritis of right knee M17.11 Osteoarthritis type: primary CPT Codes Coding - Large joint: 00680 - Large joint ([id number])
[2024-11-06 08:16] VITALS: BP 132/70; PULSE 58; O2SAT 96; BMI 22.8
== END 2024-11-06 08:41 | disposition home or self-care (01) ==
PROVIDERS: Visit Provider Student in an Organized Health Care Education/Training Program
DX: M17.11 Unilateral primary osteoarthritis, right knee (principal)
CPT/HCPCS: 20610; 99213

== ENCOUNTER → 2024-11-06 08:08 | Outpatient (BNVA) | payer MEDICARE, SELFPAY | PROVIDERS: Visit Provider Student in an Organized Health Care Education/Training Program | DX: M17.11 Unilateral primary osteoarthritis, right knee (principal); M17.12 Unilateral primary osteoarthritis, left knee | CPT/HCPCS: 20610; 99212; J7323 ==

== ENCOUNTER 2024-12-27 08:53 | Outpatient (REF) | payer MEDICARE, SELFPAY ==
--- OUTSIDE RECORDS SUMMARY | 2023-11-18 08:00 | XMS_ITS ---
Author Organization [facility] Address [address] [place] [address] Care Team Providers Care Financial Consultant Name Role Phone Jasvir SOLANO, Brian Primary Care Provider Gurvinder Ross [phone] REASON FOR VISIT screening,hx polyps Encounters Encounter Location Date Provider Diagnosis [facility] Outpatient [address] [place], [place] [phone] 11/18/2023 Gurvinder Guerrero Plan Of Treatment No Information Progress Notes * TONY CONOR WDOB:1950 (74 yo M)Acc No.[id number]:11/18/2023 COLON WITH MAC Patient: CONOR NANCE Provider: Briana Guerrero MD :1950 A ge:73 Y S ex:Male Date:11/18/2023 Address:[address] [facility] Pcp:Brian Tay MD Subjective: * Chief Complaints: [...] 11/18/2023 Generated for Printi ng/Faxing/eTransmitting on: 0 12/27/2024 09:33 AM EDT
--- OUTSIDE RECORDS SUMMARY | 2024-03-05 05:30 | XMS_ITS ---
Author Organization [facility] Address [address] [place] [address] Care Team Providers Care Corporate Director Of Pharmacy Name Role Phone Jasvir SOLANO, [place] Primary Care Provider UnaGurvinder Carreon Unavailable [phone] REASON FOR VISIT screening,hx polyps Problems Problem Type SNOMED Code ICD Code Onset Dates Problem Status W/U Status Risk Notes Problem Diverticular disease of colon (965521041) Diverticulosis of large intestine without perforation or abscess without bleeding (K57.30) Active confirmed Encounters Encounter Location Date Provider Diagnosis [facility] [place] [address] [place] [phone] 03/05/2024 Gurvinder Guerrero Colon cancer scree bang [...] * CONOR JIMENEZ WDOB:1950 (74 yo M)Acc No.[id number]:03/05/2024 COLON WITH MAC Patient: CONOR NANCE Provider: Briana Guerrero MD :1950 A ge:73 Y S ex:Male Date:03/05/2024 Address:[address], [place] Pcp:Brian Tay MD Subjective: * Chief Complaints: [...] 05/06/2023 Generated for Que lara/Lula/Christiansmitting on: 0 12/27/2024 09:33 AM EDT
[2024-12-27 09:28] LABS: Hematocrit 49.3 % (42.0-52.0); Hemoglobin 16.3 g/dl (14.0-18.0); Imm Gran Abs Auto 0.01 X10*3/uL (0.00-0.03); Imm Gran Pct Auto 0.2 % (0.0-0.4); Lymphocytes Absolute Auto 1.7 X10*3/uL (1.2-4.9); MANUAL DIFF FLAG SCAN; Mean Corpuscular HGB Conc 33.1 g/dl (31.0-36.0); Mean Corpuscular Hemoglobin 29.5 pg (27.0-33.0); Mean Corpuscular Volume 89.2 fL (80.0-98.0); NRBC Abs Auto 0.000 X10*3/uL (0.0-0.012); NRBC Pct Auto 0.0 /100WBC (0.0-0.2); PLT CLUMP 1; Red Blood Count 5.53 X10*6/uL (4.60-5.80); SCAN SMEAR FLAG 1
[2024-12-27 09:30] LABS: White Blood Count 5.1 X10*3/uL (4.8-10.8)
--- OUTSIDE RECORDS SUMMARY | 2024-12-27 09:34 | XMS_ITS | Patient Health Record ---
Author Organization [facility] Address [address] [place] [address] Care Team Providers Care Ward Nurse Name Role Phone Jasvir SOLANO, [facility] Primary Care Provider Gurvinder Ross [phone] Allergies No Known Allergies Results Component Value Reference Range Notes Pathology Reviewed date:03/13/2024 09:14:28 AM Interpretation: Performing Lab:[facility], [address] [place] [phone] Notes/Report: Reason For Referral No Information Medications Medication SIG (Take, Route, Fr equency, Duration) Notes Start Date End Date Status Ambien 5 MG 1 tablet at bedtime as needed Orally Once a day Active Aspirin Adult Not-Ta cece Problems Problem Type SNOMED Code ICD Code Onset Dates Problem Status W/U Status Risk Notes Problem Colon cancer screening (704743827) Colon cancer screening (Z12.11) Active confirmed Problem History of polyp of colon (situation) (954086886) Personal history of colonic polyps (Z86.010) Active confirmed Problem Pre-procedure evaluation check (463060313) Encounter for other preprocedural examination (Z01.818) Active confirmed Problem Diverticular disease of colon (497827337) Diverticulosis of large intestine without perforation or abscess without bleeding (K57.30) Active confirmed Encounters Encounter Location Date Provider Diagnosis [facility] [place] [address] [place] [id number] 03/05/2024 Gurvinder Guerrero Colon cancer scree bang [...] Insured Coverage Start Date Coverage End Date [facility] [employer] [address] [place] [address] [id number] TONYCONOR Self - patient is the insured Medical (General) History Medical History History ICD Code Tubular adenoma removed in 09/2002--had a neg. colonoscopy in 2007 Denies ME,DM,CVA,Lung disease,renal dise ase Negative colonoscopy in 05/2013 Surgical History Surgery Date(Month/Year) Hernia surgery x 2
[2024-12-27 09:53] LABS: Platelet Count 141 X10*3/uL (160-400)
[2024-12-27 10:03] LABS: Alanine Aminotransferase 32 U/L (0-40); Albumin Level 4.6 g/dL (3.5-5.0); Alkaline Phosphatase 106 U/L (39-117); Anion Gap 11 (12-20); Aspartate Amino Transferase 32 U/L (5-37); Blood Urea Nitrogen 20 mg/dL (9-16); Calcium 9.6 mg/dL (8.4-10.2); Carbon Dioxide 27 mmol/L (22-29); Chloride 108 mmol/L (96-108); Cholesterol 172 mg/dL (<200); Estimated Glomerular Filt Rate > 60; HDL Cholesterol 48 mg/dL (>40); Potassium 4.3 mmol/L (3.3-5.1); Sodium 142 mmol/L (135-145); Total Protein 6.7 g/dL (6.5-8.0); Triglycerides 92 mg/dL (<150)
[2024-12-27 10:23] LABS: Folate 14.5 ng/mL (> or = 4.0); Prostate Specific Antigen 2.70 ng/mL (<0.05-4.0); Vitamin B12 599 pg/mL (200-900)
== END 2024-12-27 08:54 | disposition home or self-care (01) ==
LOC: HO.LAB 08:53
PROVIDERS: PCP Internal Medicine; Visit Provider Internal Medicine
DX: Z00.00 Encounter for general adult medical examination without abnormal findings (principal); E53.8 Deficiency of other specified B group vitamins; D64.9 Anemia, unspecified; E78.00 Pure hypercholesterolemia, unspecified; E55.9 Vitamin D deficiency, unspecified; N40.0 Benign prostatic hyperplasia without lower urinary tract symptoms; E11.9 Type 2 diabetes mellitus without complications; Z12.5 Encounter for screening for malignant neoplasm of prostate
CPT/HCPCS: 36415; 80053; 80061; 82306; 82607; 82746; 83036; 84153; 84443; 85025

== ENCOUNTER 2024-12-28 08:32 | Outpatient (REF) | payer MEDICARE, SELFPAY ==
--- OUTSIDE RECORDS SUMMARY | 2023-11-18 08:00 | XMS_ITS ---
Author Organization [facility] Address [address] [place] [address] Care Team Providers Care Elevator Erector Name Role Phone Jasvir SOLANO, Brian Primary Care Provider Gurvinder Ross [phone] REASON FOR VISIT screening,hx polyps Encounters Encounter Location Date Provider Diagnosis [facility] [place] [address] [place], [place] [phone] 11/18/2023 Gurvinder Guerrero Plan Of Treatment No Information Progress Notes * TONY, CONOR WDOB:1950 (74 yo M)Acc No.[id number]:11/18/2023 COLON WITH MAC Patient: CONOR NANCE Provider: Briana Guerrero MD :1950 A ge:73 Y S ex:Male Date:11/18/2023 Address:[address] [facility] Pcp:Brian Tay MD Subjective: * Chief Complaints: [...] 0 11/18/2023 Generated for Printi ng/Faxing/eTransmitting on: 12/28/2024 08:52 AM EDT
--- OUTSIDE RECORDS SUMMARY | 2024-03-05 05:30 | XMS_ITS ---
Author Organization [facility] Address [address] [place] [address] Care Team Providers Care Exhibits Coordinator Name Role Phone Jasvir SOLANO, [place] Primary Care Provider UnaGurvinder Carreon Unavailable [phone] REASON FOR VISIT screening,hx polyps Problems Problem Type SNOMED Code ICD Code Onset Dates Problem Status W/U Status Risk Notes Problem Diverticular disease of colon (467622432) Diverticulosis of large intestine without perforation or abscess without bleeding (K57.30) Active confirmed Encounters Encounter Location Date Provider Diagnosis [facility] [place] [address] [place] [phone] 03/05/2024 Gurvinder Guerrero Colon cancer scree bang Z12.11 ; Colon polyps K63.5 ; Diverticulosis of large intestine without perforation or abscess without bleeding K57.30 and Other hemorrhoids K64.8 Assessments Encounter Date Diagnosis (ICD Code) Assessment Notes Treatment Notes Treatment Clinical Notes Section Notes 03/05/2024 Colon cancer screening (ICD-10 - Z12.11) 03/05/2024 Colon polyps (ICD-10 - K63.5) 03/05/2024 Diverticulosis of large intestine without perforation or abscess without bleeding (ICD-10 - K57.30) 03/05/2024 Other hemorrhoids (ICD-10 - K64.8) Plan Of Treatment No Information Progress Notes * CONOR JIMENEZ WDOB:1950 (74 yo M)Acc No.[id number]:03/05/2024 COLON WITH MAC Patient: CONOR NANCE Provider: Briana Guerrero MD :1950 A ge:73 Y S ex:Male Date:03/05/2024 Address:[place], [place] Pcp:Brian Tay MD Subjective: * Chief Complaints: * 1 . Screening,hx polyps. * Medical History: Objective: * Vitals: Assessment: * Assessment: 1. C olon cancer screening - Z12.11 (Primary) 2 . C olon polyps - K63.5? 3. D iverticulosis of large intestine without perforation or abscess without bleeding - K57.30 4 . O ther hemorrhoids - K64.8 Plan: * Treatment: * Procedure Codes: 4 5385 LESION REMOVAL COLONOSCOPY, Modifiers: PT , 0529F INTRVL 3+YRS PTS CLNSCP DOCD, 0528F RCMND FLW-UP 10 YRS DOCD, Modifiers: 1P * * The named appointment provid er may or may not be the originator of this progress note, and it is not deemed complete until electronically signed by the appointment provider. Sign off status: Pending * Provider: Briana Guerrero MD Date: 1 05/06/2023 Generated for Que lara/Lula/Christiansmitting on: 0 12/28/2024 08:52 AM EDT
--- OUTSIDE RECORDS SUMMARY | 2024-12-28 08:52 | XMS_ITS | Patient Health Record ---
Author Organization [facility] Address [address] [place] [address] Care Team Providers Care Avionics Safety Inspector Name Role Phone Jasvir SOLANO, [place] Primary Care Provider Gurvinder Ross [phone] Allergies No Known Allergies Results Component Value Reference Range Notes Pathology Reviewed date:03/13/2024 09:14:28 AM Interpretation: Performing Lab:[facility], [address] [place] [phone] Notes/Report: Reason For Referral No Information Medications Medication SIG (Take, Route, Fr equency, Duration) Notes Start Date End Date Status Ambien 5 MG 1 tablet at bedtime as needed Orally Once a day Active Aspirin Adult Not-Ta cece Problems Problem Type SNOMED Code ICD Code Onset Dates Problem Status W/U Status Risk Notes Problem Colon cancer screening (805236295) Colon cancer screening (Z12.11) Active confirmed Problem History of polyp of colon (situation) (642846947) Personal history of colonic polyps (Z86.010) Active confirmed Problem Pre-procedure evaluation check (158288063) Encounter for other preprocedural examination (Z01.818) Active confirmed Problem Diverticular disease of colon (601402660) Diverticulosis of large intestine without perforation or abscess without bleeding (K57.30) Active confirmed Encounters Encounter Location Date Provider Diagnosis [facility] [place] [facility] [address] [place] [id number] 03/05/2024 Gurvinder Guerrero Colon cancer scree bang [...] Insured Coverage Start Date Coverage End Date [facility] PROF[employer] CLAIM[facility] [address] [place] [address] [id number] TONYCONOR Self - patient is the insured Medical (General) History Medical History History ICD Code Tubular adenoma removed in 09/2002--had a neg. colonoscopy in 2007 Denies CO,DM,CVA,Lung disease,renal dise ase Negative colonoscopy in 05/2013 Surgical History Surgery Date(Month/Year) Hernia surgery x 2
[2024-12-28 09:58] LABS: Appearance Urine Clear; Glucose Urine UA Negative (Negative); PH 6.0 (5.0-9.0); Specific Gravity - Urine 1.020 (1.005-1.025)
== END 2024-12-28 08:33 | disposition home or self-care (01) ==
LOC: HO.LAB 08:32
PROVIDERS: PCP Internal Medicine; Visit Provider Internal Medicine
DX: Z00.00 Encounter for general adult medical examination without abnormal findings (principal); R30.0 Dysuria
CPT/HCPCS: 81003

== ENCOUNTER 2025-01-14 09:19 | Outpatient (AMB) | payer MEDICARE, SELFPAY ==
--- OUTSIDE RECORDS SUMMARY | 2023-11-18 08:00 | XMS_ITS ---
Author Organization [facility] Address [address] [place] [address] Care Team Providers Care Resident Intern Name Role Phone Jasvir SOLANO, Brian Primary Care Provider Gurvinder Ross [phone] REASON FOR VISIT screening,hx polyps Encounters Encounter Location Date Provider Diagnosis [facility] Outpatient [address] [place], [place] [phone] 11/18/2023 Gurvinder Guerrero Plan Of Treatment No Information Progress Notes * TONY CONOR WDOB:1950 (74 yo M)Acc No.[id number]:11/18/2023 COLON WITH MAC Patient: CONOR NANCE Provider: Briana Guerrero MD :1950 A ge:73 Y S ex:Male Date:11/18/2023 Address[address] [facility] Pcp:Brian Tay MD Subjective: * Chief Complaints: [...] 0 11/18/2023 Generated for Printi ng/Faxing/eTransmitting on: 1 09:23 AM EDT
--- OUTSIDE RECORDS SUMMARY | 2024-03-05 05:30 | XMS_ITS ---
Author Organization [facility] Address [address] [place] [address] Care Team Providers Care Water Pump Installer Name Role Phone Jasvir SOLANO, [place] Primary Care Provider UnaGurvinder Carreon Unavailable [phone] REASON FOR VISIT screening,hx polyps Problems Problem Type SNOMED Code ICD Code Onset Dates Problem Status W/U Status Risk Notes Problem Diverticular disease of colon (686267014) Diverticulosis of large intestine without perforation or abscess without bleeding (K57.30) Active confirmed Encounters Encounter Location Date Provider Diagnosis [facility] [place] Out[place] [address] [place], [place] [phone] 03/05/2024 Gurvinder Guerrero Colon cancer scree bang [...] * CONOR JIMENEZ WDOB:1950 (74 yo M)Acc No.[id number]:03/05/2024 COLON WITH MAC Patient: CONOR NANCE Provider: Briana Guerrero MD :1950 A ge:73 Y S ex:Male Date:03/05/2024 Address:[address], [place] Pcp:Brian Tay MD Subjective: * Chief Complaints: [...] MD Date: 1 05/06/2023 Generated for Que lara/Lula/Chapitoransmitting on: 1 09:23 AM EDT
--- OUTSIDE RECORDS SUMMARY | 2025-01-14 09:24 | XMS_ITS | Patient Health Record ---
Author Organization [facility] Address [address] [place] [address] Care Team Providers Care Value Stream Coach Name Role Phone Jasvir SOLANO, Ransom Primary Care Provider Gurvinder Ross [phone] Allergies No Known Allergies Results Component Value Reference Range Notes Pathology Reviewed date:03/13/2024 09:14:28 AM Interpretation: Performing Lab:[facility], [address] [place] [id number] Notes/Report: Reason For Referral No Information Medications Medication SIG (Take, Route, Fr equency, Duration) Notes Start Date End Date Status Ambien 5 MG 1 tablet at bedtime as needed Orally Once a day Active Aspirin Adult Not-Ta cece Problems Problem Type SNOMED Code ICD Code Onset Dates Problem Status W/U Status Risk Notes Problem Colon cancer screening (167517403) Colon cancer screening (Z12.11) Active confirmed Problem History of polyp of colon (situation) (450683828) Personal history of colonic polyps (Z86.010) Active confirmed Problem Pre-procedure evaluation check (036966779) Encounter for other preprocedural examination (Z01.818) Active confirmed Problem Diverticular disease of colon (785704466) Diverticulosis of large intestine without perforation or abscess without bleeding (K57.30) Active confirmed Encounters Encounter Location Date Provider Diagnosis [facility] Outpatient [address] [place] [id number] 03/05/2024 Gurvinder Guerrero Colon cancer scree bang [...] Insured Coverage Start Date Coverage End Date [facility] [address] [place] [address] [id number] [employer] Self - patient is the insured Medical (General) History Medical History History ICD Code Tubular adenoma removed in 09/2002--had a neg. colonoscopy in 2007 Denies OH,DM,CVA,Lung disease,renal dise ase Negative colonoscopy in 05/2013 Surgical History Surgery Date(Month/Year) Hernia surgery x 2
[2025-01-14 09:34] VITALS: BP 128/70; PULSE 66; O2SAT 98; BMI 22.6
--- NOTE | 2025-01-14 09:34 | A.OFFPC_ITS ---
Vital Signs 01/14/25 09:34 Height 5 ft 10 in Weight 157 lb 4 oz BMI 22.6 BP 128/70 Blood Pressure Location Lt brachial Position Sitting Pulse 66 Pulse Source Pulse Oximeter Pulse Oximetry (%) 98 Oxygen Delivery Method Room Air Intake Visit Reasons: Annual Exam Pharmacognosist Required: No Accompanied by: Self / Same As Patient Allergies No Known Allergies Allergy (Verified 01/14/25 10:08) Medication List - Last Reconciled 01/14/25 by Brian Tay MD amlodipine 2.5 mg PO DAILY aspirin (Ecotrin Low Strength) 81 mg PO DAILY atorvastatin 10 mg PO DAILY diclofenac sodium 1% (Voltaren Arthritis Pain) 4 grams topical QID PRN 30 days doxycycline hyclate 100 mg PO BID 14 days finasteride 5 mg PO DAILY 90 days meloxicam 15 mg PO DAILY zolpidem 10 mg PO BEDTIME PRN 90 days Tobacco use date assessed: 01/14/25 Fall risk assessment: No Falls in past year Last assessed Fall Risk: 01/14/25 Dental Screening Dental Screen Date: 01/14/25 Did you have a dental visit in the last 12 months?: Yes Did you have a dental problem in the last 6 months where you did not have access to dental care?: No Was dental information given to patient?: Patient has dentist HPI Annual Exam HPI Details Patient comes in today for his annual physical examination States that he feels okay He denies any headaches or dizziness Denies any chest pains, no SOB No nausea/vomiting, no abdominal pain No change in bowel habits noted He denies any acute urinary symptoms He still has on and off knee pains but states that these are still mostly manageable States that he still runs some local half-marathons when he can nowadays and he takes Meloxicam as needed for knee pain, which he states are still helping a lot He had his follow up labs done a couple of weeks ago - to discuss his results He had his repeat colonoscopy done last year on 03/05/[address] Guerrero - had some polyps removed that were serrated sessile lesions so his next colonoscopy will be due in 3 years (2026) [facility] Medical History (Updated 01/14/25 @ 10:34 by Brian Tay MD) Essential hypertension Syncope Osteoarthritis Insomnia Lyme arthritis of knee Pure hypercholesterolemia Leukopenia Hypermobility arthralgia Benign prostatic hyperplasia without lower urinary tract symptoms Surgical History (Updated 01/14/25 @ 10:14 by Brian Tay MD) History of hernia surgery Hx of colonoscopy (~05/2013) Family History Mother No problems noted. Father No problems noted. Social History Household Members: Spouse Housing: House Alcohol intake: current Alcohol intake frequency: a few times a week Alcohol type: beer Patient Tobacco Use Status: Former Tobacco user e-Cigarette/Vaping Use: Never Used Second Hand Smoke Exposure: Yes service: No Current occupational status: retired Cognitive needs: No Hearing needs: No Vision needs: Yes Questionnaire PHQ-9 Over the last 2 weeks, how often have you been bothered by any of the following problems? 1. Little interest or pleasure in doing things: nearly every day 2. Feeling down, depressed, or hopeless: not at all 3. Trouble falling or staying asleep, or sleeping too much: not at all 4. Feeling tired or having little energy: not at all 5. Poor appetite or overeating: not at all 6. Feeling bad about yourself - or that you are a failure or have let yourself or your family down: not at all 7. Trouble concentrating on things, such as reading the newspaper or watching television: not at all 8. Moving or speaking so slowly that other people could have noticed. Or the opposite - being so fidgety or restless that you have been moving around a lot more than usual: not at all 9. Thoughts that you would be better off or of hurting yourself in some way: not at all Total score: 3 Depression Screening Interpretation: Negative Depression Screening Done: Yes 99826 - PHQ-9 Billing: Yes Source: Developed by Drs. Gurvinder Dubois, Yulia Rollins, Tate Garcia and colleagues, with an educational justino from [employer]. Thrive Questionnaire Date Thrive assessed: 01/14/25 I am a: Patient What is your living situation today?: I have a steady place to live Within the past 12 months, did the food you bought not last and you didn't have the money to get more?: Never true Within the past 12 months, did you worry whether your food would run out before you got money to buy more?: Never true Do you have trouble paying for medicines?: No Do you have trouble getting transportation to medical appointments?: No Do you have trouble paying your heating and electricity bill?: No Do you have trouble taking care of your child, family member or friend?: No Do you have trouble with day-to-day activities such as bathing, preparing meals, shopping, managing finances, etc.?: No Are you currently unemployed and looking for a job?: Yes Are you interested in more education?: No Please select the resources that you would like help with: None Currently or been in a relationship where the following occur: No concerns reported THRIVE Score: 0 AUDIT C Alcohol Use Questionnaire (AUDIT-C) 1. How often do you have a drink containing alcohol?: Never 3. How often do you have six or more drinks on one occasion?: Never Total Score: 0 Score Reviewed/Action Taken: Yes EMILIANO-7 AMB Questionnaire EMILIANO-7 Date EMILIANO - 7 assessed: 07/11/24 Source: Developed by Drs. Gurvinder Dubois, Yulia Rollins, Tate Garcia and colleagues, with an educational justino from [employer]. Review of Systems Const Denies chills, Denies fatigue, Denies fever(s), Denies headache(s), Denies malaise and Denies weakness Eyes Denies blurry vision, Denies change in vision, Denies irritation and Denies itchy eyes ENT Denies dysphagia, Denies dizziness, Denies otalgia, Denies headache(s), Denies nasal congestion, Denies neck pain, Denies odynophagia and Denies sore throat Card Denies chest pain, Denies rapid heart rate, Denies irregular heart rhythm, Denies palpitations and Denies dyspnea Resp Denies chest congestion, Denies cough, Denies dyspnea and Denies wheezing GI Denies abdominal pain, Denies bloating, Denies constipation, Denies dysphagia, Denies heartburn, Denies diarrhea, Denies nausea, Denies odynophagia and Denies vomiting Denies hematuria, Denies difficulty urinating, Denies dysuria, Denies urinary frequency and Denies urinary urgency Musc Denies back pain, Reports arthralgias (on and off in both knees, mostly mild), Denies joint swelling, Denies muscle weakness and Denies neck pain Skin/Breast Denies change in pigmentation, Denies lesions, Denies rash and Denies unusual b ruising Neuro Denies dizziness, Denies headache(s), Denies paresthesias and Denies weakness Endo Denies fatigue and Denies palpitations Aller/Immun Denies itchy eyes and Denies wheezing Physical exam (Primary Care) Vital Signs: Last Vital Signs Pulse 66 01/14/25 09:34 BP 128/70 01/14/25 09:34 Pulse Ox 98 01/14/25 09:34 Oxygen Delivery Method Room Air 01/14/25 09:34 BMI result Body Mass Index 22.6 Tobacco/Smoking Status: Tobacco use Status Tobacco use date assessed 01/14/25 01/14/25 09:39 Patient Tobacco Use Status Former Tobacco user 01/14/25 09:39 e-Cigarette/Vaping Use Never Used 01/14/25 09:39 PHQ-9: PHQ-9 Score PHQ-9: Total score 3 01/14/25 09:39 Depression Screening Interpretation: Negative Thrive Assessment: Date of Thrive Assessment Date Thrive assessed 01/14/25 01/14/25 09:39 Currently or been in a relationship where the following occur: No concerns reported Const General: no acute distress, alert and awake Orientation/consciousness: patient oriented x3 HENMT Head: Yes normocephalic and Yes atraumatic Ears: external ears normal, TM's normal bilaterally and EAC's normal General nose exam: No nasal discharge present Face and sinus: Yes normal facial exam and Yes sinuses nontender Teeth and gingiva: dentition normal Throat: Yes posterior oropharynx normal and Yes tonsils normal (no TP congestion) Eyes Eyelids: Yes eyelids normal Conjunctivae: conjunctivae normal Pupils: Equal, round and reactive pupils present EOM: EOMs intact bilaterally Neck Neck: Yes no lymphadenopathy and Yes supple Thyroid: Thyroid normal Resp Auscultation: clear to auscultation bilaterally, no rales and no wheezes Cardio Rate: regular rate Rhythm: regular rhythm Heart sounds: no murmurs GI Palpation (GI): Soft to palpation, nontender and No hepatosplenomegaly present Auscultation: normal bowel sounds General: Yes no CVA tenderness Back/Spine/Pelvis Back: no CVA tenderness Thoracic/Lumbar Spine: thoracic and lumbar spine normal to inspection Skin Lesions: no lesions Rashes: no rashes Neuro General: patient oriented x3, moves all extremities, no focal motor deficits and CN's II-XI intact bilaterally Cranial nerves: Yes Equal, round and reactive pupils present Cognition (Neuro): normal cognition Gait exam (Neuro): Normal gait present Extrem General: Yes no clubbing, cyanosis or edema Results Reviewed Results Reviewed: Laboratory Tests 12/27/24 12/28/24 09:06 09:00 WBC 5.1 Hgb 16.3 Hct 49.3 Plt Count 141 L D Sodium 142 Potassium 4.3 Creatinine 0.81 Estimated GFR > 60 Fasting Glucose 99 Hemoglobin A1c % 5.7 Calcium 9.6 AST 32 ALT 32 Triglycerides 92 Cholesterol 172 LDL Cholesterol, Calc 106 H HDL Cholesterol 48 Prostate Specific Ag 2.70 Vitamin B12 599 25-OH Vitamin D Total 63.9 TSH 1.42 Ur Specific Anderson 1.020 Urine Protein Negative Urine Glucose (UA) Negative Urine Blood Negative Urine Nitrite Negative Ur Leukocyte Esterase Negative Coding Level of Care Code Est Pt Prev Care >65y(45121) Diagnoses Annual physical exam Z00.00 Vasovagal syncope R55 Pure hypercholesterolemia E78.00 Elevated blood pressure reading R03.0 Rotator cuff tear arthropathy of right shoulder M75.101; M12.811 Lyme arthritis of knee A69.23 Hypermobility arthralgia M25.50 Benign prostatic hyperplasia without lower urinary tract symptoms N40.0 Insomnia, unspecified type G47.00 Insomnia type: unspecified Additional Codes PHQ-9 - 94497 - PHQ-9 Billing: Yes ([id number]) Assessment & Plan Assessment & Plan (1) Annual physical exam: Code(s): Z00.00 - Encounter for general adult medical examination without abnormal findings Category: Medical Plan: Results of his labs done a couple of weeks ago reviewed and discussed with patient He had his last colonoscopy done on 03/05/[address] Guerrero and was (+) for a serrated sessile lesion so he will have repeat colonoscopy done in 3 years (2026) (2) Vasovagal syncope: Code(s): R55 - Syncope and collapse Category: Medical Plan: NO RECURRENCE He had a vasovagal episode back in November 2023 when he was supposed to go for his colonoscopy and his procedure was cancelled Work ups done in the ER were negative Discussed that his episode back then was likely due to dehydration and / or excessive physical exertion as patient did go for a 6 mile run that morning and also had some coffee at the time We referred him for further work ups - echocardiogram, stress test and cardiac evaluation all came back normal (3) Pure hypercholesterolemia: Code(s): E78.00 - Pure hypercholesterolemia, unspecified Category: Medical Plan: He is advised again that his cholesterol levels have increased slightly from previous but his numbers are still at or near goal Reinforced low cholesterol diet Patient continues to decline pharmacotherapy and prefers to continue with diet modification alone Will recheck his fasting lipids and labs in 6 months for follow up (4) Elevated blood pressure reading: Code(s): R03.0 - Elevated blood-pressure reading, without diagnosis of hypertension Category: Medical Plan: Reinforced low sodium diet His blood pressure still appears well-controlled today and he is reminded to continue monitoring his blood pressure regularly (5) Rotator cuff tear arthropathy of right shoulder: Code(s): M75.101 - Unspecified rotator cuff tear or rupture of right shoulder, not specified as traumatic; M12.811 - Other specific arthropathies, not elsewhere classified, right shoulder Category: Medical Plan: Right shoulder MRI done in February 2022 revealed (+) completely torn and retracted subscapularis tendon with moderate to severe muscle atrophy; supraspinatus tendinosis with ill-defined partial tearing posteriorly; mild supraspinatus muscle atrophy; completely torn and retracted biceps tendon and moderate acromioclavicular and glenohumeral osteoarthritis He has been advised by orthopedics to try conservative therapy for now States that his right shoulder pain and ROM have improved significantly with physical therapy and he continues to do the shoulder exercises and stretching that he was taught by physical therapy regularly He is happy that he did not have to undergo surgical intervention for his shoulder - to continue following up with orthopedics as scheduled (6) Lyme arthritis of knee: Comment: treated in 1994 no symptoms since 2014 Code(s): A69.23 - Arthritis due to Lyme disease Category: Medical Plan: Patient was treated for Lyme disease in 1994 X-rays of both knees done back in January 2022 came out normal He had repeat knee x-rays done last year (January 2024) that showed (+) mild degenerative disease States that he is also still taking some OTC Turmeric and Osteo-flex and feels that they are helping and that he has been able to continue running on a regular basis, which he is passionate about He is also now following up with rheumatology for his arthragias and knee pain and gets cortisone injections into his knee when needed (7) Hypermobility arthralgia: Code(s): M25.50 - Pain in unspecified joint Category: Medical Plan: Continue Meloxicam 15 mg QD PRN Follow up with rheumatology as scheduled (8) Benign prostatic hyperplasia without lower urinary tract symptoms: Code(s): N40.0 - Benign prostatic hyperplasia without lower urinary tract symptoms Category: Medical Plan: Continue Finasteride 5 mg QD Follow up with urology as scheduled (9) Insomnia: Code(s): G47.00 - Insomnia, unspecified Category: Medical Qualifiers: Insomnia type: unspecified Qualified Code(s): G47.00 - Insomnia, unspecified Plan: Sleep hygiene reinforced Continue Zolpidem 10 mg Q HS PRN Plan Follow up in 6 months Orders: Orders Complete Blood Count Auto Diff 6 Months D64.9 - Anemia, unspecified, M25.50 - Pain in unspecified joint Comprehensive [place]. Panel Fast 6 Months E78.00 - Pure hypercholesterolemia, unspecified, M25.50 - Pain in unspecified joint Lipid Panel 6 Months E78.00 - Pure hypercholesterolemia, unspecified, M25.50 - Pain in unspecified joint Ehrlichia Anaplasma Ab Panel 6 Months M25.50 - Pain in unspecified joint Medications: Discontinued doxycycline hyclate Discontinued Reason: Patient Completed Course 100 mg PO BID 14 days 28 caps 0RF
== END 2025-01-14 10:44 | disposition home or self-care (01) ==
LOC: HO.HMCH 09:20
PROVIDERS: PCP Internal Medicine; Visit Provider Internal Medicine
DX: Z00.00 Encounter for general adult medical examination without abnormal findings (principal); A69.23 Arthritis due to Lyme disease; R55 Syncope and collapse; E78.00 Pure hypercholesterolemia, unspecified; R03.0 Elevated blood-pressure reading, without diagnosis of hypertension; M75.101 Unspecified rotator cuff tear or rupture of right shoulder, not specified as traumatic; M12.811 Other specific arthropathies, not elsewhere classified, right shoulder; M25.50 Pain in unspecified joint; N40.0 Benign prostatic hyperplasia without lower urinary tract symptoms; G47.00 Insomnia, unspecified

== ENCOUNTER → 2025-01-14 09:19 | Outpatient (BNVA) | payer MEDICARE, SELFPAY | PROVIDERS: PCP Internal Medicine; Visit Provider Internal Medicine | DX: Z00.00 Encounter for general adult medical examination without abnormal findings (principal); R55 Syncope and collapse; E78.00 Pure hypercholesterolemia, unspecified; R03.0 Elevated blood-pressure reading, without diagnosis of hypertension; M75.101 Unspecified rotator cuff tear or rupture of right shoulder, not specified as traumatic; M12.811 Other specific arthropathies, not elsewhere classified, right shoulder; A69.23 Arthritis due to Lyme disease; M25.50 Pain in unspecified joint; N40.0 Benign prostatic hyperplasia without lower urinary tract symptoms; G47.00 Insomnia, unspecified; Z79.899 Other long term (current) drug therapy; Z13.31 Encounter for screening for depression | CPT/HCPCS: 96127; 99397 ==